=== PATIENT | female | born 1950 | race Caucasian/White ===

== ENCOUNTER 2017-08-30 17:18 | Inpatient (IN) | payer MEDICARE, OTHER ==
--- NOTE | 2017-08-30 17:28 | ED Physician Chart ---
ED Chief Complaint/HPI - Patient Information Date Seen:: 08/30/17 Time Seen:: 17:15 Chief Complaint:: Agitation History of Present Illness:: onset x one day of agitation and aggressive behavior; no report of trauma, H/As , neck pain, C/P, SOB, cough, Abd. Pain, A/N/V/D/C, fever, chills, or urinary s/ s Historian:: EMS Review:: Nurse's Note Reviewed, Old Chart Reviewed, EMS run form Reviewed ED Review of Systems - Review of Systems General/Constitutional: No fever, No chills, No weight loss, No weakness, No diaphoresis, No edema, No loss of appetite Skin: No skin lesions, No rash, No bruising Head: No headache, No light-headedness Eyes: No loss of vision, No pain, No diplopia ENT: No earache, No nasal drainage, No sore throat, No tinnitus Neck: No neck pain, No swelling, No thyromegaly, No stiffness, No mass noted Cardio Vascular: No chest pain, No palpitations, No PND, No orthopnea, No edema Pulmonary: No SOB, No cough, No sputum, No wheezing GI: No nausea, No vomiting, No diarrhea, No pain, No melena, No hematochezia, No constipation, No hematemesis G/U: No dysuria, No frequency, No hematuria, No nacturia 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, No abnormal vaginal bleed, No contraction Musculoskeletal: No bone or joint pain, No back pain, No muscle pain Endocrine: No polyuria, No polydipsia Psychiatric: Prior psych history, Depression, No anxiety, No suicidal ideation, No homicidal ideation, Auditory hallucination, No visual hallucination Hematopoietic: No bruising, No lymphadenopathy Allergic/Immuno: No urticaria, No angioedema Neurological: No syncope, No focal symptoms, No weakness, No paresthesia, No headache, No seizure, No dizziness, No confusion, No vertigo ED Past Medical History - Past Medical History Obtainable: Yes Past Medical History: HTN, Dyslipidemia, PUD/GERD, Arthritis Family History: Diabetes Melitus, HTN Social History: Non Smoker, No Alcohol, No Drug Use, Single, Care Facility Surgical History: None Psychiatricy History: Depression, Schizophrenia, Bipolar Medication: Reviewed ED Physical Exam - Physical Examination General/Constitutional: Awake, Well-developed, well-nourished, Alert, No distress, GCS 15, Non-toxic appearing, Ambulatory Head: Atraumatic Eyes: Lids, conjuctiva normal, PERRL, EOMI Skin: Nl inspection, No rash, No skin lesions, No ecchymosis, Well hydrated, No lymphadenopathy ENMT: External ears, nose nl, TM canals nl, Nasal exam nl, Lips, teeth, gums nl , Oropharynx nl, Tonsils nl Neck: Nontender, Full ROM w/o pain, No JVD, No nuchal rigidity, No bruit, No mass, No stridor Respiratory: Nl effort/Exclusion, Clear to Auscultation, No Wheeze/Rhonchi/Rales Cardio Vascular: RRR, No murmur, gallop, rubs, NL S1 S2, Carotid/Femoral/Distal pulses equal bilaterally GI: No tenderness/rebounding/guarding, No organomegaly, No hernia, Normal BS's, Nondistended, No mass/bruits, No McBurney tenderness : No CVA tenderness Extremities: No tenderness or effusion, Full ROM, normal strength in all extremities, No edema, Normal digits & nails Neuro/Psych: Alert/oriented, DTR's symmetric, Normal sensory exam, Normal motor strength, Judgement/insight normal, Mood normal, Normal gait, No focal deficits Other Neuro/Psych comments:: + Psychomotor Agitation; Mood/Affect: Labile Misc: Normal back, No paraspinal tenderness ED Labs/Radiology/EKG Results - EKG Interpretations EKG Time:: 17:37 Rate & Rhythm: 70; NSR Comments:: non-specific st-t changes ED Septic Shock - . Is Septic Shock (SBP<90, OR Lactate>4 mmol\L) present?: No
[2017-08-30 17:53] LABS: HEMATOCRIT 43.4 % (41.0-60); HEMOGLOBIN 14.4 gm/dL (12-16); MEAN CELL VOLUME 93.9 fl (81-100); MEAN CORPUSCULAR HEMOGLOBIN 31.2 pg (27.0-31.0); MEAN CORPUSCULAR HGB CONC 33.2 pg (28.0-36.0); MEAN PLATELET VOLUME 8.4 fl; PLATELET COUNT 161 Th/cmm (150-400); RED BLOOD COUNT 4.62 Mil/cmm (3.80-5.20); RED CELL DISTRIBUTION WIDTH 13.7 % (11.5-20.0); WHITE BLOOD COUNT 7.7 Th/cmm (4.8-10.8)
[2017-08-30 17:54] LABS: MANUAL DIFF REQUIRED? YES
[2017-08-30 18:11] LABS: ALB/GLOB RATIO 1.4 (1.0-1.8); ALBUMIN 3.9 gm/dL (3.7-5.3); ALKALINE PHOSPHATASE 75 U/L (34-104); ANION GAP 12.9 (7.0-16.0); BILIRUBIN,TOTAL 0.3 mg/dL (0.3-1.0); BUN - UREA NITROGEN 23 mg/dL (7-25); CALCIUM SERUM 9.4 mg/dL (8.6-10.3); CARBON DIOXIDE 26.4 mEq/L (21.0-31.0); CHLORIDE 93 mEq/L (98-107); CHOLESTEROL 231 mg/dL (<200); CREATININE - SERUM 0.9 mg/dL (0.6-1.2); GFR AFRICAN-AMERICAN > 60.0 ml/min (>90); GFR NON AFRICAN-AMERICAN > 60.0 ml/min; GLUCOSE 89 mg/dL (70-105); HDL -HIGH DENSITY LIPOPROTEIN 61 mg/dL (23-92); POTASSIUM SERUM 4.3 mEq/L (3.5-5.1); SGOT 15 U/L (13-39); SGPT/ALT 7 U/L (7-52); SODIUM SERUM 128 mEq/L (136-145); TOTAL PROTEIN,SERUM 6.7 gm/dL (6.0-8.3); TRIGLYCERIDES 174 mg/dL (<150)
[2017-08-30 18:12] LABS: ACETAMINOPHEN < 10.0 ug/mL (10.0-30.0); SALICYLATES (ASPIRIN) < 25.0 mg/L (30.0-100.0)
[2017-08-30 18:15] LABS: ATYPICAL LYMPH 2 %; EOSINOPHIL 2 % (0-5); LYMPHOCYTE 60 % (20-50); MONOCYTE 8 % (2-10); NEUTROPHILS 28 % (40-80); PLATELET ESTIMATE ADEQUATE (NORMAL)
[2017-08-30] MEDS ORDERED: Sodium Chloride 0.9% 1,000 ML IV ONE (19:27)
[2017-08-30] MEDS ORDERED: Magnesium Hydroxide (MOM) 30 mL UDC PO PRN (21:22)
[2017-08-30] MEDS ORDERED: Fleet Enema 135 mL RC PRN (21:22)
[2017-08-30] MEDS: Lactulose 10 Gm/15 mL 30mL UDC PO SCH (21:30)
[2017-08-30 22:29] VITALS: BP 120/66
[2017-08-31] MEDS: Atorvastatin Calcium 10 MG TAB PO SCH (10:35)
--- NOTE | 2017-08-31 13:16 | Psychosocial Evaluation ---
DATE OF SERVICE: 08/30/2017 IDENTIFYING INFORMATION: The patient is a 67-year-old female. CHIEF COMPLAINT: "I have pain in my knees." HISTORY OF PRESENT ILLNESS: The patient was referred for admission because of psychosis, aggressive behavior. The patient herself was not a great historian at the beginning. She has broken her kneecap and has visual problems and that is why she was hospitalized. Later, she admits to feeling depressed that she eats well, but she has poor sleep. She feels paranoid. She reports she lives by herself, which I doubt as she needed help with her ADLs. She was delusional. 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 PAST PSYCHIATRIC HISTORY: The patient was hospitalized before, but she denies prior suicide attempt. She reported that she was diagnosed paranoid schizophrenia. Apparently, she has been on Seroquel and Depakote. I am not sure if she is taking Depakote for a seizure disorder. MEDICAL HISTORY: She has high cholesterol, hypertension, hypothyroidism, constipation. SHE IS ALLERGIC TO PENICILLIN. FAMILY AND SOCIAL HISTORY: The patient was single, never , no children, 10th grade education. 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 The patient reports no history of substance abuse, but she reports her mother was depressed. Later, she reported grandmother and grandfather on mother's side committed suicide. I am not sure that is a real. She denies any history substance abuse. MENTAL STATUS EXAMINATION: The patient is appropriately dressed, not well groomed. She had to be helped with her ADLs. She was alert. She knew this is 08/31/2017. She reports poor sleep, increasing depression. Appetite is okay. She is overweight. She denies any current intent to harm self or anybody. She feels paranoid. She seems to have average intelligence just by information; however, she was not sure the [place] she believe is [place]. Her short term memory, does not know the reason. Her long-term is good for age, date of . Her insight and judgment is impaired. IMPRESSION: AXIS I: Schizoaffective disorder. MEDICAL DIAGNOSES: Deferred to the medical doctor. Her assets, she wants to get help. Negative poor coping. INITIAL TREATMENT PLAN: The patient was started on Depakote and Seroquel. We will do group therapy and milieu therapy. ESTIMATED LENGTH OF STAY: 3-7 days. DISCHARGE CRITERIA: Decrease in depression, psych, paranoia. After discharge, outpatient treatment. JOB# [id number]
[2017-08-31 14:10] LABS: A1C % 5.3 % (4.0-6.0)
--- NOTE | 2017-08-31 14:15 | Internal Medicine Prog Note ---
Internal Medicine Subjective - Subjective Service Date: 08/31/17 ([id number]) Internal Medicine Objective - Results Result Diagrams: 08/30/17 17:47 08/30/17 17:47 Recent Labs: Laboratory Last Values WBC 7.7 Th/cmm (4.8-10.8) 08/30/17 17:47 RBC 4.62 Mil/cmm (3.80-5.20) 08/30/17 17:47 Hgb 14.4 gm/dL (12-16) 08/30/17 17:47 Hct 43.4 % (41.0-60) 08/30/17 17:47 MCV 93.9 fl (81-100) 08/30/17 17:47 MCH 31.2 pg (27.0-31.0) H 08/30/17 17:47 MCHC Differential 33.2 pg (28.0-36.0) 08/30/17 17:47 RDW 13.7 % (11.5-20.0) 08/30/17 17:47 Plt Count 161 Th/cmm (150-400) 08/30/17 17:47 MPV 8.4 fl 08/30/17 17:47 Neutrophils (Manual) 28 % (40-80) L 08/30/17 17:47 Lymphocytes 60 % (20-50) H 08/30/17 17:47 Monocytes 8 % (2-10) 08/30/17 17:47 Eosinophils 2 % (0-5) 08/30/17 17:47 Atypical Lymphocytes 2 % 08/30/17 17:47 Platelet Estimate ADEQUATE (NORMAL) 08/30/17 17:47 Smear Path Review Y 08/30/17 17:47 Sodium 128 mEq/L (136-145) L 08/30/17 17:47 Potassium 4.3 mEq/L (3.5-5.1) 08/30/17 17:47 Chloride 93 mEq/L (98-107) L 08/30/17 17:47 Carbon Dioxide 26.4 mEq/L (21.0-31.0) 08/30/17 17:47 Anion Gap 12.9 (7.0-16.0) 08/30/17 17:47 BUN 23 mg/dL (7-25) 08/30/17 17:47 Creatinine 0.9 mg/dL (0.6-1.2) 08/30/17 17:47 Est GFR ( Amer) > 60.0 ml/min (>90) 08/30/17 17:47 Est GFR (Non-Af Amer) > 60.0 ml/min 08/30/17 17:47 BUN/Creatinine Ratio 25.6 08/30/17 17:47 Glucose 89 mg/dL (70-105) 08/30/17 17:47 Hemoglobin A1c % 5.3 % (4.0-6.0) 08/30/17 17:47 Calcium 9.4 mg/dL (8.6-10.3) 08/30/17 17:47 Total Bilirubin 0.3 mg/dL (0.3-1.0) 08/30/17 17:47 AST 15 U/L (13-39) 08/30/17 17:47 ALT 7 U/L (7-52) 08/30/17 17:47 Alkaline Phosphatase 75 U/L (34-104) 08/30/17 17:47 Total Protein 6.7 gm/dL (6.0-8.3) 08/30/17 17:47 Albumin 3.9 gm/dL (3.7-5.3) 08/30/17 17:47 Globulin 2.8 gm/dL 08/30/17 17:47 Albumin/Globulin Ratio 1.4 (1.0-1.8) 08/30/17 17:47 Triglycerides 174 mg/dL (<150) H 08/30/17 17:47 Cholesterol 231 mg/dL (<200) H 08/30/17 17:47 LDL Cholesterol Direct 170 mg/dL (75-193) 08/30/17 17:47 HDL Cholesterol 61 mg/dL (23-92) 08/30/17 17:47 TSH 3.26 uIU/ml (0.34-5.60) 08/30/17 17:47 Salicylates < 25.0 mg/L (30.0-100.0) L 08/30/17 17:47 Acetaminophen < 10.0 ug/mL (10.0-30.0) L 08/30/17 17:47 Ethyl Alcohol < 10 mg/dL (0-10) 08/30/17 17:47 - Physical Exam Vitals and I&O: Vital Signs Temp 98.3 F 08/31/17 06:16 Pulse 67 08/31/17 06:16 Resp 20 08/31/17 06:16 BP 127/67 08/31/17 10:35 Pulse Ox 98 08/31/17 06:16 Intake & Output 08/30/17 08/31/17 08/31/17 18:59 06:59 18:59 Intake Total 1120 Balance 1120 Intake: Intake, IV Amount 1000 Sodium Chloride 0.9% 1, 1000 000 ml @ Wide Open IV . Q0M ONE Rx#:[id number] Oral 120 Other: # Voids 2 # Bowel Movements 1 Active Medications: Current Medications Acetaminophen (Tylenol) 650 mg PO BID [facility] Stop: 10/30/17 08:59 Last Admin: 08/31/17 10:33 Dose: 650 mg Atorvastatin Calcium (Lipitor) 20 mg PO DAILY [facility] PRN Reason: Protocol Stop: 10/30/17 08:59 Last Admin: 08/31/17 10:35 Dose: 20 mg Bisacodyl (Dulcolax 10 Mg Supp) 10 mg RC Q24H PRN PRN Reason: IF NO BM IN THREE DAYS Stop: 10/29/17 21:21 Docusate Sodium (Colace) 250 mg PO BID [facility] Stop: 10/30/17 08:59 Last Admin: 08/31/17 10:35 Dose: 250 mg Furosemide (Lasix) 20 mg PO BID [facility] Stop: 10/30/17 08:59 Last Admin: 08/31/17 10:35 Dose: 20 mg Lactulose (Cephulac) 30 gm PO HS [facility] Stop: 10/29/17 21:29 Last Admin: 08/30/17 21:30 Dose: 30 gm Levothyroxine Sodium (Synthroid) 0.112 mg PO QDAC [facility] Stop: 10/30/17 07:29 Lorazepam (Ativan) 0.5 mg PO Q4HR PRN; Protocol PRN Reason: Anxiety Stop: 09/29/17 22:16 Magnesium Hydroxide (Milk Of Magnesia) 30 ml PO Q72H PRN PRN Reason: FOR NO BM IN THREE DAYS Stop: 10/29/17 21:21 Megestrol Acetate (Megace) 400 mg PO BID [facility] Stop: 10/30/17 08:59 Quetiapine Fumarate (Seroquel) 300 mg PO BID [facility] PRN Reason: Protocol Stop: 10/30/17 08:59 Sodium Phosphate (Fleet Enema) 118 ml RC PRN PRN PRN Reason: IF BYSACODYL INEFFECTIVE Stop: 10/29/17 21:21 Valproate Sodium (Depakene) 1,000 mg PO BID [facility] Stop: 10/30/17 08:59 Zolpidem Tartrate (Ambien) 5 mg PO HS PRN PRN Reason: Insomnia Stop: 10/29/17 22:16
[2017-08-31] MEDS: Levothyroxine 0.112 Mg Tab PO SCH (14:34)
[2017-08-31] MEDS: Multivitamin w/ Minerals Tab PO SCH (14:34)
--- NOTE | 2017-08-31 17:53 | History & Physical ---
ADMIT DATE: 08/30/2017 DICTATED FOR: Mao Li D.O. CHIEF COMPLAINT: Agitation. HISTORY OF PRESENT ILLNESS: This is a 67-year-old female, who is a half-way resident, was brought here to [facility] for 1-day history of agitation and aggressive behavior towards nursing staff. The patient is now admitted to the Geropsych Unit. PAST MEDICAL HISTORY: Hypertension, dyslipidemia, PUD, GERD, and arthritis. FAMILY HISTORY: Noncontributory. SOCIAL HISTORY: The patient is a half-way resident, requiring 24-hour nursing care. PAST SURGICAL HISTORY: Unknown. MEDICATIONS: Please see medication reconciliation. REVIEW OF SYSTEMS: GENERAL: Denies fever or chills. CARDIOVASCULAR: Denies chest pain. RESPIRATORY: Denies shortness of breath. GASTROINTESTINAL: Denies nausea, vomiting, or abdominal pain. GENITOURINARY: Denies increased frequency or dysuria. NEUROLOGIC: No headaches, seizures, or syncope. All other systems are reviewed and are negative. PHYSICAL EXAMINATION: GENERAL: The patient is well developed, well nourished, no acute distress. VITAL SIGNS: Temperature 98.3, heart rate 67, blood pressure 127/67, respirations 20, and O2 98%. HEENT: Head; normocephalic, atraumatic. NECK: Supple. No mass. LUNGS: Clear bilaterally. HEART: Regular rhythm. ABDOMEN: Soft and nontender. LABORATORY DATA: WBC 7.7, H and H 14.4 and 42.4, and platelet of 161. Sodium 128, potassium 4.2, chloride 93, BUN 23, and creatinine 0.9. ASSESSMENT: Hypertension, dyslipidemia, peptic ulcer disease, gastroesophageal reflux disease, arthritis, schizophrenia, and bipolar. PLAN: We will monitor the patient's blood pressure, keep the patient on a low sodium diet. We will get physical therapy. We will continue to follow this patient. JOB# [id number]
[2017-08-31] MEDS: Lactulose 10 Gm/15 mL 30mL UDC PO SCH (20:21)
[2017-09-01] MEDS: Levothyroxine 0.112 Mg Tab PO SCH (06:34)
[2017-09-01] MEDS: Atorvastatin Calcium 10 MG TAB PO SCH (08:19)
[2017-09-01] MEDS: Multivitamin w/ Minerals Tab PO SCH (08:20)
--- NOTE | 2017-09-01 10:14 | Progress Notes ---
DATE: 09/01/2017 Case was discussed with staff of the patient, reviewed records. The patient continues to be delusional, paranoid, depressed, continues to have poor insight, continues to be unable to make safe plan for self-care, unpredictable, impulsive, needing redirections. Her TSH is within normal range. CBC shows high MCH, the rest within normal range. Chemistry panel shows low sodium ____ within normal range. Lipid profile with high cholesterol and high triglycerides. We will ____ consulting with Dr. Li regarding that and we will continue to work with the patient in group therapy and milieu therapy and adjust medications as needed. JOB# [id number]
--- NOTE | 2017-09-01 13:22 | Internal Medicine Prog Note ---
Internal Medicine Subjective - Subjective Service Date: 09/01/17 Patient seen and examined:: with staff Patient is:: awake Per staff patient has:: no adverse event, tolerating meds Internal Medicine Objective - Results Result Diagrams: 08/30/17 17:47 08/30/17 17:47 Recent Labs: Laboratory Last Values WBC 7.7 Th/cmm (4.8-10.8) 08/30/17 17:47 RBC 4.62 Mil/cmm (3.80-5.20) 08/30/17 17:47 Hgb 14.4 gm/dL (-16) 08/30/17 17:47 Hct 43.4 % (41.0-60) 08/30/17 17:47 MCV 93.9 fl (81-100) 08/30/17 17:47 MCH 31.2 pg (27.0-31.0) H 08/30/17 17:47 MCHC Differential 33.2 pg (28.0-36.0) 08/30/17 17:47 RDW 13.7 % (11.5-20.0) 08/30/17 17:47 Plt Count 161 Th/cmm (150-400) 08/30/17 17:47 MPV 8.4 fl 08/30/17 17:47 Neutrophils (Manual) 28 % (40-80) L 08/30/17 17:47 Lymphocytes 60 % (20-50) H 08/30/17 17:47 Monocytes 8 % (2-10) 08/30/17 17:47 Eosinophils 2 % (0-5) 08/30/17 17:47 Atypical Lymphocytes 2 % 08/30/17 17:47 Platelet Estimate ADEQUATE (NORMAL) 08/30/17 17:47 Smear Path Review Y 08/30/17 17:47 Sodium 128 mEq/L (136-145) L 08/30/17 17:47 Potassium 4.3 mEq/L (3.5-5.1) 08/30/17 17:47 Chloride 93 mEq/L (98-107) L 08/30/17 17:47 Carbon Dioxide 26.4 mEq/L (21.0-31.0) 08/30/17 17:47 Anion Gap 12.9 (7.0-16.0) 08/30/17 17:47 BUN 23 mg/dL (7-25) 08/30/17 17:47 Creatinine 0.9 mg/dL (0.6-1.2) 08/30/17 17:47 Est GFR ( Amer) > 60.0 ml/min (>90) 08/30/17 17:47 Est GFR (Non-Af Amer) > 60.0 ml/min 08/30/17 17:47 BUN/Creatinine Ratio 25.6 08/30/17 17:47 Glucose 89 mg/dL (70-105) 08/30/17 17:47 Hemoglobin A1c % 5.3 % (4.0-6.0) 08/30/17 17:47 Calcium 9.4 mg/dL (8.6-10.3) 08/30/17 17:47 Total Bilirubin 0.3 mg/dL (0.3-1.0) 08/30/17 17:47 AST 15 U/L (13-39) 08/30/17 17:47 ALT 7 U/L (7-52) 08/30/17 17:47 Alkaline Phosphatase 75 U/L (34-104) 08/30/17 17:47 Total Protein 6.7 gm/dL (6.0-8.3) 08/30/17 17:47 Albumin 3.9 gm/dL (3.7-5.3) 08/30/17 17:47 Globulin 2.8 gm/dL 08/30/17 17:47 Albumin/Globulin Ratio 1.4 (1.0-1.8) 08/30/17 17:47 Triglycerides 174 mg/dL (<150) H 08/30/17 17:47 Cholesterol 231 mg/dL (<200) H 08/30/17 17:47 LDL Cholesterol Direct 170 mg/dL (75-193) 08/30/17 17:47 HDL Cholesterol 61 mg/dL (23-92) 08/30/17 17:47 TSH 3.26 uIU/ml (0.34-5.60) 08/30/17 17:47 Salicylates < 25.0 mg/L (30.0-100.0) L 08/30/17 17:47 Acetaminophen < 10.0 ug/mL (10.0-30.0) L 08/30/17 17:47 Ethyl Alcohol < 10 mg/dL (0-10) 08/30/17 17:47 - Physical Exam Vitals and I&O: Vital Signs Temp 98.6 F 09/01/17 06:44 Pulse 83 09/01/17 09:20 Resp 20 09/01/17 06:44 BP 150/81 09/01/17 09:20 Pulse Ox 100 09/01/17 06:44 Intake & Output 08/31/17 09/01/17 09/01/17 18:59 06:59 18:59 Intake Total 240 Output Total 1 Balance 239 Weight (lbs) 225 lb Intake: Oral 240 Output: Stool 1 Other: # Voids 3 # Bowel Movements 0 Active Medications: Current Medications Acetaminophen (Tylenol) 650 mg PO BID [facility] Stop: 10/30/17 08:59 Last Admin: 09/01/17 08:20 Dose: 650 mg Atorvastatin Calcium (Lipitor) 20 mg PO DAILY [facility] PRN Reason: Protocol Stop: 10/30/17 08:59 Last Admin: 09/01/17 08:19 Dose: 20 mg Bisacodyl (Dulcolax 10 Mg Supp) 10 mg RC Q24H PRN PRN Reason: IF NO BM IN THREE DAYS Stop: 10/29/17 21:21 Docusate Sodium (Colace) 250 mg PO BID [facility] Stop: 10/30/17 08:59 Last Admin: 09/01/17 08:20 Dose: 250 mg Furosemide (Lasix) 20 mg PO BID [facility] Stop: 10/30/17 08:59 Last Admin: 09/01/17 08:21 Dose: 20 mg Lactulose (Cephulac) 30 gm PO HS [facility] Stop: 10/29/17 21:29 Last Admin: 08/31/17 20:21 Dose: 30 gm Levothyroxine Sodium (Synthroid) 0.112 mg PO QDAC [facility] Stop: 10/30/17 07:29 Last Admin: 09/01/17 06:34 Dose: 0.112 mg Lorazepam (Ativan) 0.5 mg PO Q4HR PRN; Protocol PRN Reason: Anxiety Stop: 09/29/17 22:16 Magnesium Hydroxide (Milk Of Magnesia) 30 ml PO Q72H PRN PRN Reason: FOR NO BM IN THREE DAYS Stop: 10/29/17 21:21 Megestrol Acetate (Megace) 400 mg PO BID [facility] Stop: 10/30/17 08:59 Last Admin: 09/01/17 08:19 Dose: 400 mg Quetiapine Fumarate (Seroquel) 300 mg PO BID [facility] PRN Reason: Protocol Stop: 10/30/17 08:59 Last Admin: 09/01/17 08:20 Dose: 300 mg Sodium Phosphate (Fleet Enema) 118 ml RC PRN PRN PRN Reason: IF BYSACODYL INEFFECTIVE Stop: 10/29/17 21:21 Valproate Sodium (Depakene) 1,000 mg PO BID [facility] Stop: 10/30/17 08:59 Last Admin: 09/01/17 08:19 Dose: 1,000 mg Zolpidem Tartrate (Ambien) 5 mg PO HS PRN PRN Reason: Insomnia Stop: 10/29/17 22:16 General: alert HEENT: NC/AT, PERRLA Neck: Supple Lungs: CTAB Cardiovascular: RRR, Normal S1, Normal S2, without murmur Abdomen: soft, non-tender, non-distended, positive bowel sound Internal Medicine Assmt/Plan - Assessment Assessment: htn dyslipidemia pud gerd arthritis schizophrenia bipolar - Plan Plan: monitor bp low fat diet will continue to follow patient continue current plan of care
[2017-09-01] MEDS: Lactulose 10 Gm/15 mL 30mL UDC PO SCH (21:17)
[2017-09-02] MEDS: Levothyroxine 0.112 Mg Tab PO SCH (06:33)
[2017-09-02] MEDS: Atorvastatin Calcium 10 MG TAB PO SCH (10:03)
[2017-09-02] MEDS: Multivitamin w/ Minerals Tab PO SCH (10:04)
--- NOTE | 2017-09-02 12:56 | Internal Medicine Prog Note ---
Internal Medicine Subjective - Subjective Service Date: 09/02/17 Patient is:: awake Per staff patient has:: no adverse event, tolerating meds Internal Medicine Objective - Results Result Diagrams: 08/30/17 17:47 08/30/17 17:47 Recent Labs: Laboratory Last Values WBC 7.7 Th/cmm (4.8-10.8) 08/30/17 17:47 RBC 4.62 Mil/cmm (3.80-5.20) 08/30/17 17:47 Hgb 14.4 gm/dL (-16) 08/30/17 17:47 Hct 43.4 % (41.0-60) 08/30/17 17:47 MCV 93.9 fl (81-100) 08/30/17 17:47 MCH 31.2 pg (27.0-31.0) H 08/30/17 17:47 MCHC Differential 33.2 pg (28.0-36.0) 08/30/17 17:47 RDW 13.7 % (11.5-20.0) 08/30/17 17:47 Plt Count 161 Th/cmm (150-400) 08/30/17 17:47 MPV 8.4 fl 08/30/17 17:47 Neutrophils (Manual) 28 % (40-80) L 08/30/17 17:47 Lymphocytes 60 % (20-50) H 08/30/17 17:47 Monocytes 8 % (2-10) 08/30/17 17:47 Eosinophils 2 % (0-5) 08/30/17 17:47 Atypical Lymphocytes 2 % 08/30/17 17:47 Platelet Estimate ADEQUATE (NORMAL) 08/30/17 17:47 Smear Path Review Y 08/30/17 17:47 Sodium 128 mEq/L (136-145) L 08/30/17 17:47 Potassium 4.3 mEq/L (3.5-5.1) 08/30/17 17:47 Chloride 93 mEq/L (98-107) L 08/30/17 17:47 Carbon Dioxide 26.4 mEq/L (21.0-31.0) 08/30/17 17:47 Anion Gap 12.9 (7.0-16.0) 08/30/17 17:47 BUN 23 mg/dL (7-25) 08/30/17 17:47 Creatinine 0.9 mg/dL (0.6-1.2) 08/30/17 17:47 Est GFR ( Amer) > 60.0 ml/min (>90) 08/30/17 17:47 Est GFR (Non-Af Amer) > 60.0 ml/min 08/30/17 17:47 BUN/Creatinine Ratio 25.6 08/30/17 17:47 Glucose 89 mg/dL (70-105) 08/30/17 17:47 Hemoglobin A1c % 5.3 % (4.0-6.0) 08/30/17 17:47 Calcium 9.4 mg/dL (8.6-10.3) 08/30/17 17:47 Total Bilirubin 0.3 mg/dL (0.3-1.0) 08/30/17 17:47 AST 15 U/L (13-39) 08/30/17 17:47 ALT 7 U/L (7-52) 08/30/17 17:47 Alkaline Phosphatase 75 U/L (34-104) 08/30/17 17:47 Total Protein 6.7 gm/dL (6.0-8.3) 08/30/17 17:47 Albumin 3.9 gm/dL (3.7-5.3) 08/30/17 17:47 Globulin 2.8 gm/dL 08/30/17 17:47 Albumin/Globulin Ratio 1.4 (1.0-1.8) 08/30/17 17:47 Triglycerides 174 mg/dL (<150) H 08/30/17 17:47 Cholesterol 231 mg/dL (<200) H 08/30/17 17:47 LDL Cholesterol Direct 170 mg/dL (75-193) 08/30/17 17:47 HDL Cholesterol 61 mg/dL (23-92) 08/30/17 17:47 TSH 3.26 uIU/ml (0.34-5.60) 08/30/17 17:47 Salicylates < 25.0 mg/L (30.0-100.0) L 08/30/17 17:47 Acetaminophen < 10.0 ug/mL (10.0-30.0) L 08/30/17 17:47 Ethyl Alcohol < 10 mg/dL (0-10) 08/30/17 17:47 RPR NONREACTIVE (NONREACTIVE) 08/30/17 17:47 - Physical Exam Vitals and I&O: Vital Signs Temp 97.2 F 09/02/17 07:02 Pulse 60 09/02/17 07:02 Resp 20 09/02/17 07:02 BP 134/82 09/02/17 07:02 Pulse Ox 99 09/02/17 07:02 Intake & Output 09/01/17 09/02/17 09/02/17 18:59 06:59 18:59 Intake Total 120 Balance 120 Intake: Oral 120 Other: # Voids 3 Active Medications: Current Medications Acetaminophen (Tylenol) 650 mg PO BID [facility] Stop: 10/30/17 08:59 Last Admin: 09/02/17 10:03 Dose: Not Given Atorvastatin Calcium (Lipitor) 20 mg PO DAILY [facility] PRN Reason: Protocol Stop: 10/30/17 08:59 Last Admin: 09/02/17 10:03 Dose: Not Given Bisacodyl (Dulcolax 10 Mg Supp) 10 mg RC Q24H PRN PRN Reason: IF NO BM IN THREE DAYS Stop: 10/29/17 21:21 Docusate Sodium (Colace) 250 mg PO BID [facility] Stop: 10/30/17 08:59 Last Admin: 09/02/17 10:03 Dose: Not Given Furosemide (Lasix) 20 mg PO BID [facility] Stop: 10/30/17 08:59 Last Admin: 09/02/17 09:36 Dose: Not Given Lactulose (Cephulac) 30 gm PO HS [facility] Stop: 10/29/17 21:29 Last Admin: 09/01/17 21:17 Dose: 30 gm Levothyroxine Sodium (Synthroid) 0.112 mg PO QDAC [facility] Stop: 10/30/17 07:29 Last Admin: 09/02/17 06:33 Dose: 0.112 mg Lorazepam (Ativan) 0.5 mg PO Q4HR PRN; Protocol PRN Reason: Anxiety Stop: 09/29/17 22:16 Magnesium Hydroxide (Milk Of Magnesia) 30 ml PO Q72H PRN PRN Reason: FOR NO BM IN THREE DAYS Stop: 10/29/17 21:21 Megestrol Acetate (Megace) 400 mg PO BID [facility] Stop: 10/30/17 08:59 Last Admin: 09/02/17 10:03 Dose: Not Given Quetiapine Fumarate 300 mg/ (Quetiapine Fumarate 25 mg) 325 mg PO BID [facility] Stop: 11/01/17 16:59 Sodium Phosphate (Fleet Enema) 118 ml RC PRN PRN PRN Reason: IF BYSACODYL INEFFECTIVE Stop: 10/29/17 21:21 Valproate Sodium (Depakene) 1,000 mg PO BID [facility] Stop: 10/30/17 08:59 Last Admin: 09/02/17 10:04 Dose: Not Given Zolpidem Tartrate (Ambien) 5 mg PO HS PRN PRN Reason: Insomnia Stop: 10/29/17 22:16 General: alert HEENT: NC/AT, PERRLA Neck: Supple Lungs: CTAB Cardiovascular: RRR, Normal S1, Normal S2, without murmur Abdomen: soft, non-tender, non-distended, positive bowel sound Internal Medicine Assmt/Plan - Assessment Assessment: htn dyslipidemia pud gerd arthritis schizophrenia bipolar - Plan Plan: monitor bp low fat diet will continue to follow patient continue current plan of care
[2017-09-02] MEDS: QUEtiapine Fumarate 300 MG, QUEtiapine Fumarate 25 MG PO SCH (17:25)
--- NOTE | 2017-09-02 19:26 | Progress Notes ---
DATE: 09/02/2017 The case was discussed with staff of the patient, reviewed records. The patient continues to be delusional. Continues to have poor insight, continues to be unable to make safe plan for self-care, unpredictable, impulsive. She is bedridden and she needs total care. She reports that she takes Depakote because of her mental illness and not for seizures. She denies having a seizure and so far, no side effects with the medication, no sedation, no nausea and also from the symptoms. I will be increasing Seroquel to 325 mg twice a day and so far, no side effects, no sedation noted. No extrapyramidal symptoms. Lab work showed MRSA is negative. TSH within normal range. CBC with high MCH, the rest within normal range. Chemistry panel with low sodium and low chloride. Already instructed the staff to consult with Dr. Li regarding his abnormal lab work and we will continue to work with the patient in group therapy, milieu therapy, adjust medication. JOB# [id number]
[2017-09-02] MEDS: Lactulose 10 Gm/15 mL 30mL UDC PO SCH (20:16)
[2017-09-03] MEDS: Levothyroxine 0.112 Mg Tab PO SCH (06:33)
[2017-09-03] MEDS: Multivitamin w/ Minerals Tab PO SCH (09:11)
[2017-09-03] MEDS: Atorvastatin Calcium 10 MG TAB PO SCH (09:11)
[2017-09-03] MEDS: QUEtiapine Fumarate 300 MG, QUEtiapine Fumarate 25 MG PO SCH ×2 (09:47→16:53)
--- NOTE | 2017-09-03 13:14 | Internal Medicine Prog Note ---
Internal Medicine Subjective - Subjective Service Date: 09/03/17 Patient is:: awake Per staff patient has:: no adverse event, tolerating meds Internal Medicine Objective - Results Result Diagrams: 08/30/17 17:47 08/30/17 17:47 Recent Labs: Laboratory Last Values WBC 7.7 Th/cmm (4.8-10.8) 08/30/17 17:47 RBC 4.62 Mil/cmm (3.80-5.20) 08/30/17 17:47 Hgb 14.4 gm/dL (-16) 08/30/17 17:47 Hct 43.4 % (41.0-60) 08/30/17 17:47 MCV 93.9 fl (81-100) 08/30/17 17:47 MCH 31.2 pg (27.0-31.0) H 08/30/17 17:47 MCHC Differential 33.2 pg (28.0-36.0) 08/30/17 17:47 RDW 13.7 % (11.5-20.0) 08/30/17 17:47 Plt Count 161 Th/cmm (150-400) 08/30/17 17:47 MPV 8.4 fl 08/30/17 17:47 Neutrophils (Manual) 28 % (40-80) L 08/30/17 17:47 Lymphocytes 60 % (20-50) H 08/30/17 17:47 Monocytes 8 % (2-10) 08/30/17 17:47 Eosinophils 2 % (0-5) 08/30/17 17:47 Atypical Lymphocytes 2 % 08/30/17 17:47 Platelet Estimate ADEQUATE (NORMAL) 08/30/17 17:47 Smear Path Review Y 08/30/17 17:47 Sodium 128 mEq/L (136-145) L 08/30/17 17:47 Potassium 4.3 mEq/L (3.5-5.1) 08/30/17 17:47 Chloride 93 mEq/L (98-107) L 08/30/17 17:47 Carbon Dioxide 26.4 mEq/L (21.0-31.0) 08/30/17 17:47 Anion Gap 12.9 (7.0-16.0) 08/30/17 17:47 BUN 23 mg/dL (7-25) 08/30/17 17:47 Creatinine 0.9 mg/dL (0.6-1.2) 08/30/17 17:47 Est GFR ( Amer) > 60.0 ml/min (>90) 08/30/17 17:47 Est GFR (Non-Af Amer) > 60.0 ml/min 08/30/17 17:47 BUN/Creatinine Ratio 25.6 08/30/17 17:47 Glucose 89 mg/dL (70-105) 08/30/17 17:47 Hemoglobin A1c % 5.3 % (4.0-6.0) 08/30/17 17:47 Calcium 9.4 mg/dL (8.6-10.3) 08/30/17 17:47 Total Bilirubin 0.3 mg/dL (0.3-1.0) 08/30/17 17:47 AST 15 U/L (13-39) 08/30/17 17:47 ALT 7 U/L (7-52) 08/30/17 17:47 Alkaline Phosphatase 75 U/L (34-104) 08/30/17 17:47 Total Protein 6.7 gm/dL (6.0-8.3) 08/30/17 17:47 Albumin 3.9 gm/dL (3.7-5.3) 08/30/17 17:47 Globulin 2.8 gm/dL 08/30/17 17:47 Albumin/Globulin Ratio 1.4 (1.0-1.8) 08/30/17 17:47 Triglycerides 174 mg/dL (<150) H 08/30/17 17:47 Cholesterol 231 mg/dL (<200) H 08/30/17 17:47 LDL Cholesterol Direct 170 mg/dL (75-193) 08/30/17 17:47 HDL Cholesterol 61 mg/dL (23-92) 08/30/17 17:47 TSH 3.26 uIU/ml (0.34-5.60) 08/30/17 17:47 Salicylates < 25.0 mg/L (30.0-100.0) L 08/30/17 17:47 Acetaminophen < 10.0 ug/mL (10.0-30.0) L 08/30/17 17:47 Ethyl Alcohol < 10 mg/dL (0-10) 08/30/17 17:47 RPR NONREACTIVE (NONREACTIVE) 08/30/17 17:47 - Physical Exam Vitals and I&O: Vital Signs Temp 97.2 F 09/03/17 06:45 Pulse 64 09/03/17 10:13 Resp 18 09/03/17 06:45 BP 130/54 09/03/17 10:13 Pulse Ox 96 09/03/17 06:45 Intake & Output 09/02/17 09/03/17 09/03/17 18:59 06:59 18:59 Intake Total 1120 120 Balance 1120 120 Intake: Oral 1120 120 Other: # Voids 2 3 # Bowel Movements 1 Active Medications: Current Medications Acetaminophen (Tylenol) 650 mg PO BID [facility] Stop: 10/30/17 08:59 Last Admin: 09/03/17 09:11 Dose: 650 mg Atorvastatin Calcium (Lipitor) 20 mg PO DAILY DIRK PRN Reason: Protocol Stop: 10/30/17 08:59 Last Admin: 09/03/17 09:11 Dose: 20 mg Bisacodyl (Dulcolax 10 Mg Supp) 10 mg RC Q24H PRN PRN Reason: IF NO BM IN THREE DAYS Stop: 10/29/17 21:21 Docusate Sodium (Colace) 250 mg PO BID [facility] Stop: 10/30/17 08:59 Last Admin: 09/03/17 09:11 Dose: 250 mg Furosemide (Lasix) 20 mg PO BID [facility] Stop: 10/30/17 08:59 Last Admin: 09/03/17 09:12 Dose: 20 mg Lactulose (Cephulac) 30 gm PO HS [facility] Stop: 10/29/17 21:29 Last Admin: 09/02/17 20:16 Dose: 30 gm Levothyroxine Sodium (Synthroid) 0.112 mg PO QDAC [facility] Stop: 10/30/17 07:29 Last Admin: 09/03/17 06:33 Dose: 0.112 mg Lorazepam (Ativan) 0.5 mg PO Q4HR PRN; Protocol PRN Reason: Anxiety Stop: 09/29/17 22:16 Magnesium Hydroxide (Milk Of Magnesia) 30 ml PO Q72H PRN PRN Reason: FOR NO BM IN THREE DAYS Stop: 10/29/17 21:21 Megestrol Acetate (Megace) 400 mg PO BID [facility] Stop: 10/30/17 08:59 Last Admin: 09/03/17 09:47 Dose: 400 mg Quetiapine Fumarate 300 mg/ (Quetiapine Fumarate 25 mg) 325 mg PO BID [facility] Stop: 11/01/17 16:59 Last Admin: 09/03/17 09:47 Dose: 325 mg Sodium Phosphate (Fleet Enema) 118 ml RC PRN PRN PRN Reason: IF BYSACODYL INEFFECTIVE Stop: 10/29/17 21:21 Valproate Sodium (Depakene) 1,000 mg PO BID [facility] Stop: 10/30/17 08:59 Last Admin: 09/03/17 09:14 Dose: 1,000 mg Zolpidem Tartrate (Ambien) 5 mg PO HS PRN PRN Reason: Insomnia Stop: 10/29/17 22:16 General: alert HEENT: NC/AT, PERRLA Neck: Supple Lungs: CTAB Cardiovascular: RRR, Normal S1, Normal S2, without murmur Abdomen: soft, non-tender, non-distended, positive bowel sound Internal Medicine Assmt/Plan - Assessment Assessment: htn dyslipidemia pud gerd arthritis schizophrenia bipolar - Plan Plan: monitor bp low fat diet will continue to follow patient continue current plan of care
--- NOTE | 2017-09-03 20:07 | Progress Notes ---
DATE: 09/03/2017 Case was discussed with staff of the patient, reviewed records. The patient continues to stay in bed need total care. Continues to have poor insight, unpredictable, impulsive, needing redirection. Sleeping well, eating well. No side effects with the medication, no sedation, no nausea, no extrapyramidal symptoms. She tolerated the increase in Seroquel to 325 mg a day with no side effects and we will continue to work with the patient in group therapy, milieu therapy, adjust medication as needed. JOB# [id number]
[2017-09-03] MEDS: Lactulose 10 Gm/15 mL 30mL UDC PO SCH (20:49)
[2017-09-04] MEDS: Levothyroxine 0.112 Mg Tab PO SCH (06:49)
[2017-09-04] MEDS: Atorvastatin Calcium 10 MG TAB PO SCH (09:15)
[2017-09-04] MEDS: QUEtiapine Fumarate 300 MG, QUEtiapine Fumarate 25 MG PO SCH ×2 (09:17→16:40)
[2017-09-04] MEDS: Multivitamin w/ Minerals Tab PO SCH (09:30)
--- NOTE | 2017-09-04 12:08 | Progress Notes ---
DATE: 09/04/2017 Case was discussed with staff of the patient and records. The patient states mostly she is still unpredictable, impulsive, delusional, unable to make safe plan for self-care, unpredictable, impulsive, needing redirection. Tolerated the increase in Seroquel with no side effects, no sedation, no nausea, no extrapyramidal symptoms and her lab work was reviewed. We will continue the accepting therapy, adjust medications. JOB# [id number]
--- NOTE | 2017-09-04 14:30 | Internal Medicine Prog Note ---
Internal Medicine Subjective - Subjective Patient seen and examined:: with staff, chart reviewed Patient is:: awake, verbal, interactive Per staff patient has:: no adverse event, eating well, noncompliant, tolerating meds Internal Medicine Objective - Results Result Diagrams: 08/30/17 17:47 08/30/17 17:47 Recent Labs: Laboratory Last Values WBC 7.7 Th/cmm (4.8-10.8) 08/30/17 17:47 RBC 4.62 Mil/cmm (3.80-5.20) 08/30/17 17:47 Hgb 14.4 gm/dL (-16) 08/30/17 17:47 Hct 43.4 % (41.0-60) 08/30/17 17:47 MCV 93.9 fl (81-100) 08/30/17 17:47 MCH 31.2 pg (27.0-31.0) H 08/30/17 17:47 MCHC Differential 33.2 pg (28.0-36.0) 08/30/17 17:47 RDW 13.7 % (11.5-20.0) 08/30/17 17:47 Plt Count 161 Th/cmm (150-400) 08/30/17 17:47 MPV 8.4 fl 08/30/17 17:47 Neutrophils (Manual) 28 % (40-80) L 08/30/17 17:47 Lymphocytes 60 % (20-50) H 08/30/17 17:47 Monocytes 8 % (2-10) 08/30/17 17:47 Eosinophils 2 % (0-5) 08/30/17 17:47 Atypical Lymphocytes 2 % 08/30/17 17:47 Platelet Estimate ADEQUATE (NORMAL) 08/30/17 17:47 Smear Path Review Y 08/30/17 17:47 Sodium 128 mEq/L (136-145) L 08/30/17 17:47 Potassium 4.3 mEq/L (3.5-5.1) 08/30/17 17:47 Chloride 93 mEq/L (98-107) L 08/30/17 17:47 Carbon Dioxide 26.4 mEq/L (21.0-31.0) 08/30/17 17:47 Anion Gap 12.9 (7.0-16.0) 08/30/17 17:47 BUN 23 mg/dL (7-25) 08/30/17 17:47 Creatinine 0.9 mg/dL (0.6-1.2) 08/30/17 17:47 Est GFR ( Amer) > 60.0 ml/min (>90) 08/30/17 17:47 Est GFR (Non-Af Amer) > 60.0 ml/min 08/30/17 17:47 BUN/Creatinine Ratio 25.6 08/30/17 17:47 Glucose 89 mg/dL (70-105) 08/30/17 17:47 Hemoglobin A1c % 5.3 % (4.0-6.0) 08/30/17 17:47 Calcium 9.4 mg/dL (8.6-10.3) 08/30/17 17:47 Total Bilirubin 0.3 mg/dL (0.3-1.0) 08/30/17 17:47 AST 15 U/L (13-39) 08/30/17 17:47 ALT 7 U/L (7-52) 08/30/17 17:47 Alkaline Phosphatase 75 U/L (34-104) 08/30/17 17:47 Total Protein 6.7 gm/dL (6.0-8.3) 08/30/17 17:47 Albumin 3.9 gm/dL (3.7-5.3) 08/30/17 17:47 Globulin 2.8 gm/dL 08/30/17 17:47 Albumin/Globulin Ratio 1.4 (1.0-1.8) 08/30/17 17:47 Triglycerides 174 mg/dL (<150) H 08/30/17 17:47 Cholesterol 231 mg/dL (<200) H 08/30/17 17:47 LDL Cholesterol Direct 170 mg/dL (75-193) 08/30/17 17:47 HDL Cholesterol 61 mg/dL (23-92) 08/30/17 17:47 TSH 3.26 uIU/ml (0.34-5.60) 08/30/17 17:47 Salicylates < 25.0 mg/L (30.0-100.0) L 08/30/17 17:47 Acetaminophen < 10.0 ug/mL (10.0-30.0) L 08/30/17 17:47 Ethyl Alcohol < 10 mg/dL (0-10) 08/30/17 17:47 RPR NONREACTIVE (NONREACTIVE) 08/30/17 17:47 - Physical Exam Vitals and I&O: Vital Signs Temp 98.2 F 09/03/17 14:00 Pulse 79 09/04/17 10:16 Resp 20 09/03/17 14:00 BP 132/89 09/04/17 10:16 Pulse Ox 98 09/03/17 14:00 Intake & Output 09/03/17 09/04/17 09/04/17 18:59 06:59 18:59 Intake Total 800 Balance 800 Intake: Oral 800 Other: # Voids 3 # Bowel Movements 0 Active Medications: Current Medications Acetaminophen (Tylenol) 650 mg PO BID [facility] Stop: 10/30/17 08:59 Last Admin: 09/04/17 09:15 Dose: 650 mg Atorvastatin Calcium (Lipitor) 20 mg PO DAILY [facility] PRN Reason: Protocol Stop: 10/30/17 08:59 Last Admin: 09/04/17 09:15 Dose: 20 mg Bisacodyl (Dulcolax 10 Mg Supp) 10 mg RC Q24H PRN PRN Reason: IF NO BM IN THREE DAYS Stop: 10/29/17 21:21 Docusate Sodium (Colace) 250 mg PO BID [facility] Stop: 10/30/17 08:59 Last Admin: 09/04/17 09:17 Dose: 250 mg Furosemide (Lasix) 20 mg PO BID [facility] Stop: 10/30/17 08:59 Last Admin: 09/04/17 09:16 Dose: 20 mg Lactulose (Cephulac) 30 gm PO HS [facility] Stop: 10/29/17 21:29 Last Admin: 09/03/17 20:49 Dose: 30 gm Levothyroxine Sodium (Synthroid) 0.112 mg PO QDAC [facility] Stop: 10/30/17 07:29 Last Admin: 09/04/17 06:49 Dose: 0.112 mg Lorazepam (Ativan) 0.5 mg PO Q4HR PRN; Protocol PRN Reason: Anxiety Stop: 09/29/17 22:16 Magnesium Hydroxide (Milk Of Magnesia) 30 ml PO Q72H PRN PRN Reason: FOR NO BM IN THREE DAYS Stop: 10/29/17 21:21 Megestrol Acetate (Megace) 400 mg PO BID [facility] Stop: 10/30/17 08:59 Last Admin: 09/04/17 09:15 Dose: 400 mg Quetiapine Fumarate 300 mg/ (Quetiapine Fumarate 25 mg) 325 mg PO BID [facility] Stop: 11/01/17 16:59 Last Admin: 09/04/17 09:17 Dose: 325 mg Sodium Phosphate (Fleet Enema) 118 ml RC PRN PRN PRN Reason: IF BYSACODYL INEFFECTIVE Stop: 10/29/17 21:21 Valproate Sodium (Depakene) 1,000 mg PO BID [facility] Stop: 10/30/17 08:59 Last Admin: 09/04/17 09:15 Dose: 1,000 mg Zolpidem Tartrate (Ambien) 5 mg PO HS PRN PRN Reason: Insomnia Stop: 10/29/17 22:16 General: alert HEENT: NC/AT, PERRLA Neck: Supple Lungs: CTAB Cardiovascular: RRR, Normal S1, Normal S2, without murmur Abdomen: soft, non-tender, non-distended, positive bowel sound Internal Medicine Assmt/Plan - Assessment Assessment: - Assessment Assessment: htn dyslipidemia pud gerd arthritis schizophrenia bipolar - Plan Plan: monitor bp low fat diet will continue to follow patient continue current plan of care - Plan Plan: meds and orders noted eusebio vallejo Nutritional Asmnt/Malnutr-PDOC - Dietary Evaluation Malnutrition Findings (Please click <Entered> for more info): Nutritional Asmnt/Malnutrition Start: 09/04/17 10: 54 Text: Status: Complete Freq: Document 09/04/17 10:54 KHUSHBU (Rec: 09/04/17 10:59 KHUSHBU POTTS [email or web address]) Nutritional Asmnt/Malnutrition Patient General Information Diagnosis Psychosis Pertinent Medical Hx/Surgical Hx HTN, dyslipidemia, PUD, GERD Subjective Information PT asleep at time of visit Current Diet Order/ Nutrition Support low sodium Pertinent Medications lipitor, bisacodyl, colace, lasix, lactulose, synthroid, MOM, megace, fleet enema Pertinent Labs 08/30: Na 128, K 4.3, Cl 93, CO2 26.4, BUN 23, Cr 0.9, Ca 9 .4, glucose 89 Nutritional Hx/Data Height 1.73 m Height (Calculated Centimeters) 172.7 Current Weight (lbs) 102.058 kg Weight (Calculated Kilograms) 102.1 Weight (Calculated Grams) 068694.3 Body Mass Index (BMI) 34.2 Recent Weight Change No Weight Status Obese GI Symptoms GI Symptoms None Last BM 09/02 x 1 Difficult in: None Cultural/Ethnic/Confucianist Belief unknown Usual diet at home unknown Skin Integrity/Comment: vinh score 17 Estimated Nutritional Goals BEE in Kcals: Adj wt of IBW Calories/Kcals/Kg 25-30kcals/kg Kcals Calculated 1825-2190kcals/day Protein: Adj wt of IBW Protein g/k-1.2g/kg Protein Calculated 7388g/day Fluid: ml 1825-2190ml/day (1ml/kcal) Nutritional Problem 1. Problem Problem No nutrition diagnosis at this time Intervention/Recommendation Comments Recommend continuing Mechanical soft diet Expected Outcomes/Goals Expected Outcomes/Goals PO intake >75%
[2017-09-04] MEDS: Lactulose 10 Gm/15 mL 30mL UDC PO SCH (20:32)
[2017-09-05] MEDS: Levothyroxine 0.112 Mg Tab PO SCH (06:37)
[2017-09-05] MEDS: Multivitamin w/ Minerals Tab PO SCH (08:12)
[2017-09-05] MEDS: QUEtiapine Fumarate 300 MG, QUEtiapine Fumarate 25 MG PO SCH ×2 (08:12→16:47)
[2017-09-05] MEDS: Atorvastatin Calcium 10 MG TAB PO SCH (08:14)
--- NOTE | 2017-09-05 13:05 | Progress Notes ---
DATE: 09/05/2017 Case was discussed with staff of the patient, reviewed records. The patient continues to have poor insight, unpredictable, impulsive, needing redirection. Continues to stay in bed, needing total care. She is compliant with the medication with no side effects, no sedation, no nausea, no extrapyramidal symptoms. I will increase the Seroquel dose and will continue to work with the patient in group therapy, milieu therapy, adjust medication as needed. JOB# [id number]
--- NOTE | 2017-09-05 15:16 | Internal Medicine Prog Note ---
Internal Medicine Subjective - Subjective Patient seen and examined:: with staff, chart reviewed Patient is:: awake, verbal, interactive Per staff patient has:: no adverse event, eating well, noncompliant, tolerating meds Internal Medicine Objective - Results Result Diagrams: 08/30/17 17:47 08/30/17 17:47 Recent Labs: Laboratory Last Values WBC 7.7 Th/cmm (4.8-10.8) 08/30/17 17:47 RBC 4.62 Mil/cmm (3.80-5.20) 08/30/17 17:47 Hgb 14.4 gm/dL (-16) 08/30/17 17:47 Hct 43.4 % (41.0-60) 08/30/17 17:47 MCV 93.9 fl (81-100) 08/30/17 17:47 MCH 31.2 pg (27.0-31.0) H 08/30/17 17:47 MCHC Differential 33.2 pg (28.0-36.0) 08/30/17 17:47 RDW 13.7 % (11.5-20.0) 08/30/17 17:47 Plt Count 161 Th/cmm (150-400) 08/30/17 17:47 MPV 8.4 fl 08/30/17 17:47 Neutrophils (Manual) 28 % (40-80) L 08/30/17 17:47 Lymphocytes 60 % (20-50) H 08/30/17 17:47 Monocytes 8 % (2-10) 08/30/17 17:47 Eosinophils 2 % (0-5) 08/30/17 17:47 Atypical Lymphocytes 2 % 08/30/17 17:47 Platelet Estimate ADEQUATE (NORMAL) 08/30/17 17:47 Smear Path Review Y 08/30/17 17:47 Sodium 128 mEq/L (136-145) L 08/30/17 17:47 Potassium 4.3 mEq/L (3.5-5.1) 08/30/17 17:47 Chloride 93 mEq/L (98-107) L 08/30/17 17:47 Carbon Dioxide 26.4 mEq/L (21.0-31.0) 08/30/17 17:47 Anion Gap 12.9 (7.0-16.0) 08/30/17 17:47 BUN 23 mg/dL (7-25) 08/30/17 17:47 Creatinine 0.9 mg/dL (0.6-1.2) 08/30/17 17:47 Est GFR ( Amer) > 60.0 ml/min (>90) 08/30/17 17:47 Est GFR (Non-Af Amer) > 60.0 ml/min 08/30/17 17:47 BUN/Creatinine Ratio 25.6 08/30/17 17:47 Glucose 89 mg/dL (70-105) 08/30/17 17:47 Hemoglobin A1c % 5.3 % (4.0-6.0) 08/30/17 17:47 Calcium 9.4 mg/dL (8.6-10.3) 08/30/17 17:47 Total Bilirubin 0.3 mg/dL (0.3-1.0) 08/30/17 17:47 AST 15 U/L (13-39) 08/30/17 17:47 ALT 7 U/L (7-52) 08/30/17 17:47 Alkaline Phosphatase 75 U/L (34-104) 08/30/17 17:47 Total Protein 6.7 gm/dL (6.0-8.3) 08/30/17 17:47 Albumin 3.9 gm/dL (3.7-5.3) 08/30/17 17:47 Globulin 2.8 gm/dL 08/30/17 17:47 Albumin/Globulin Ratio 1.4 (1.0-1.8) 08/30/17 17:47 Triglycerides 174 mg/dL (<150) H 08/30/17 17:47 Cholesterol 231 mg/dL (<200) H 08/30/17 17:47 LDL Cholesterol Direct 170 mg/dL (75-193) 08/30/17 17:47 HDL Cholesterol 61 mg/dL (23-92) 08/30/17 17:47 TSH 3.26 uIU/ml (0.34-5.60) 08/30/17 17:47 Salicylates < 25.0 mg/L (30.0-100.0) L 08/30/17 17:47 Acetaminophen < 10.0 ug/mL (10.0-30.0) L 08/30/17 17:47 Ethyl Alcohol < 10 mg/dL (0-10) 08/30/17 17:47 RPR NONREACTIVE (NONREACTIVE) 08/30/17 17:47 - Physical Exam Vitals and I&O: Vital Signs Temp 98.2 F 09/04/17 20:41 Pulse 89 09/05/17 09:12 Resp 18 09/04/17 20:41 BP 136/63 09/05/17 09:12 Pulse Ox 96 09/04/17 20:41 Intake & Output 09/04/17 09/05/17 09/05/17 18:59 06:59 18:59 Intake Total 1200 241 Output Total 3 Balance 1200 238 Intake: Oral 1200 241 Output: Stool 3 Other: # Voids 1 # Bowel Movements 1 Active Medications: Current Medications Acetaminophen (Tylenol) 650 mg PO BID [facility] Stop: 10/30/17 08:59 Last Admin: 09/05/17 08:12 Dose: Not Given Atorvastatin Calcium (Lipitor) 20 mg PO DAILY [facility] PRN Reason: Protocol Stop: 10/30/17 08:59 Last Admin: 09/05/17 08:14 Dose: 20 mg Bisacodyl (Dulcolax 10 Mg Supp) 10 mg RC Q24H PRN PRN Reason: IF NO BM IN THREE DAYS Stop: 10/29/17 21:21 Docusate Sodium (Colace) 250 mg PO BID [facility] Stop: 10/30/17 08:59 Last Admin: 09/05/17 08:15 Dose: 250 mg Furosemide (Lasix) 20 mg PO BID [facility] Stop: 10/30/17 08:59 Last Admin: 09/05/17 08:14 Dose: 20 mg Lactulose (Cephulac) 30 gm PO HS [facility] Stop: 10/29/17 21:29 Last Admin: 09/04/17 20:32 Dose: 30 gm Levothyroxine Sodium (Synthroid) 0.112 mg PO QDAC [facility] Stop: 10/30/17 07:29 Last Admin: 09/05/17 06:37 Dose: 0.112 mg Lorazepam (Ativan) 0.5 mg PO Q4HR PRN; Protocol PRN Reason: Anxiety Stop: 09/29/17 22:16 Magnesium Hydroxide (Milk Of Magnesia) 30 ml PO Q72H PRN PRN Reason: FOR NO BM IN THREE DAYS Stop: 10/29/17 21:21 Megestrol Acetate (Megace) 400 mg PO BID [facility] Stop: 10/30/17 08:59 Last Admin: 09/05/17 08:16 Dose: 400 mg Quetiapine Fumarate 300 mg/ (Quetiapine Fumarate 25 mg) 325 mg PO BID [facility] Stop: 11/01/17 16:59 Last Admin: 09/05/17 08:12 Dose: 325 mg Sodium Phosphate (Fleet Enema) 118 ml RC PRN PRN PRN Reason: IF BYSACODYL INEFFECTIVE Stop: 10/29/17 21:21 Valproate Sodium (Depakene) 1,000 mg PO BID [facility] Stop: 10/30/17 08:59 Last Admin: 09/05/17 08:16 Dose: 1,000 mg Zolpidem Tartrate (Ambien) 5 mg PO HS PRN PRN Reason: Insomnia Stop: 10/29/17 22:16 General: alert HEENT: NC/AT, PERRLA Neck: Supple Lungs: CTAB Cardiovascular: RRR, Normal S1, Normal S2, without murmur Abdomen: soft, non-tender, non-distended, positive bowel sound Internal Medicine Assmt/Plan - Assessment Assessment: - Assessment Assessment: htn dyslipidemia pud gerd arthritis schizophrenia bipolar - Plan Plan: monitor bp low fat diet will continue to follow patient continue current plan of care - Plan Plan: meds and orders noted eusebio vallejo Nutritional Asmnt/Malnutr-PDOC - Dietary Evaluation Malnutrition Findings (Please click <Entered> for more info): Nutritional Asmnt/Malnutrition Start: 09/04/17 10: 54 Text: Status: Complete Freq: Document 09/04/17 10:54 KHUSHBU (Rec: 09/04/17 10:59 KHUSHBU POTTS [email or web address]) Nutritional Asmnt/Malnutrition Patient General Information Diagnosis Psychosis Pertinent Medical Hx/Surgical Hx HTN, dyslipidemia, PUD, GERD Subjective Information PT asleep at time of visit Current Diet Order/ Nutrition Support low sodium Pertinent Medications lipitor, bisacodyl, colace, lasix, lactulose, synthroid, MOM, megace, fleet enema Pertinent Labs 08/30: Na 128, K 4.3, Cl 93, CO2 26.4, BUN 23, Cr 0.9, Ca 9 .4, glucose 89 Nutritional Hx/Data Height 1.73 m Height (Calculated Centimeters) 172.7 Current Weight (lbs) 102.058 kg Weight (Calculated Kilograms) 102.1 Weight (Calculated Grams) 307165.3 Body Mass Index (BMI) 34.2 Recent Weight Change No Weight Status Obese GI Symptoms GI Symptoms None Last BM 09/02 x 1 Difficult in: None Cultural/Ethnic/Jain Belief unknown Usual diet at home unknown Skin Integrity/Comment: vinh score 17 Estimated Nutritional Goals BEE in Kcals: Adj wt of IBW Calories/Kcals/Kg 25-30kcals/kg Kcals Calculated 1825-2190kcals/day Protein: Adj wt of IBW Protein g/k-1.2g/kg Protein Calculated 7388g/day Fluid: ml 1825-2190ml/day (1ml/kcal) Nutritional Problem 1. Problem Problem No nutrition diagnosis at this time Intervention/Recommendation Comments Recommend continuing Mechanical soft diet Expected Outcomes/Goals Expected Outcomes/Goals PO intake >75%
[2017-09-05] MEDS: Lactulose 10 Gm/15 mL 30mL UDC PO SCH (20:39)
[2017-09-06] MEDS: Levothyroxine 0.112 Mg Tab PO SCH (06:45)
[2017-09-06] MEDS: QUEtiapine Fumarate 300 MG, QUEtiapine Fumarate 25 MG PO SCH (08:45)
[2017-09-06] MEDS: Multivitamin w/ Minerals Tab PO SCH (08:47)
[2017-09-06] MEDS: Atorvastatin Calcium 10 MG TAB PO SCH (08:47)
--- NOTE | 2017-09-06 14:23 | Internal Medicine Prog Note ---
Internal Medicine Subjective - Subjective Service Date: 09/06/17 Patient is:: awake, verbal, interactive Per staff patient has:: no adverse event, eating well, noncompliant, tolerating meds Internal Medicine Objective - Results Result Diagrams: 08/30/17 17:47 08/30/17 17:47 Recent Labs: Laboratory Last Values WBC 7.7 Th/cmm (4.8-10.8) 08/30/17 17:47 RBC 4.62 Mil/cmm (3.80-5.20) 08/30/17 17:47 Hgb 14.4 gm/dL (-16) 08/30/17 17:47 Hct 43.4 % (41.0-60) 08/30/17 17:47 MCV 93.9 fl (81-100) 08/30/17 17:47 MCH 31.2 pg (27.0-31.0) H 08/30/17 17:47 MCHC Differential 33.2 pg (28.0-36.0) 08/30/17 17:47 RDW 13.7 % (11.5-20.0) 08/30/17 17:47 Plt Count 161 Th/cmm (150-400) 08/30/17 17:47 MPV 8.4 fl 08/30/17 17:47 Neutrophils (Manual) 28 % (40-80) L 08/30/17 17:47 Lymphocytes 60 % (20-50) H 08/30/17 17:47 Monocytes 8 % (2-10) 08/30/17 17:47 Eosinophils 2 % (0-5) 08/30/17 17:47 Atypical Lymphocytes 2 % 08/30/17 17:47 Platelet Estimate ADEQUATE (NORMAL) 08/30/17 17:47 Smear Path Review Y 08/30/17 17:47 Sodium 128 mEq/L (136-145) L 08/30/17 17:47 Potassium 4.3 mEq/L (3.5-5.1) 08/30/17 17:47 Chloride 93 mEq/L (98-107) L 08/30/17 17:47 Carbon Dioxide 26.4 mEq/L (21.0-31.0) 08/30/17 17:47 Anion Gap 12.9 (7.0-16.0) 08/30/17 17:47 BUN 23 mg/dL (7-25) 08/30/17 17:47 Creatinine 0.9 mg/dL (0.6-1.2) 08/30/17 17:47 Est GFR ( Amer) > 60.0 ml/min (>90) 08/30/17 17:47 Est GFR (Non-Af Amer) > 60.0 ml/min 08/30/17 17:47 BUN/Creatinine Ratio 25.6 08/30/17 17:47 Glucose 89 mg/dL (70-105) 08/30/17 17:47 Hemoglobin A1c % 5.3 % (4.0-6.0) 08/30/17 17:47 Calcium 9.4 mg/dL (8.6-10.3) 08/30/17 17:47 Total Bilirubin 0.3 mg/dL (0.3-1.0) 08/30/17 17:47 AST 15 U/L (13-39) 08/30/17 17:47 ALT 7 U/L (7-52) 08/30/17 17:47 Alkaline Phosphatase 75 U/L (34-104) 08/30/17 17:47 Total Protein 6.7 gm/dL (6.0-8.3) 08/30/17 17:47 Albumin 3.9 gm/dL (3.7-5.3) 08/30/17 17:47 Globulin 2.8 gm/dL 08/30/17 17:47 Albumin/Globulin Ratio 1.4 (1.0-1.8) 08/30/17 17:47 Triglycerides 174 mg/dL (<150) H 08/30/17 17:47 Cholesterol 231 mg/dL (<200) H 08/30/17 17:47 LDL Cholesterol Direct 170 mg/dL (75-193) 08/30/17 17:47 HDL Cholesterol 61 mg/dL (23-92) 08/30/17 17:47 TSH 3.26 uIU/ml (0.34-5.60) 08/30/17 17:47 Salicylates < 25.0 mg/L (30.0-100.0) L 08/30/17 17:47 Acetaminophen < 10.0 ug/mL (10.0-30.0) L 08/30/17 17:47 Valproic Acid 94.3 ug/mL (50.0-100.0) 09/06/17 12:00 Ethyl Alcohol < 10 mg/dL (0-10) 08/30/17 17:47 RPR NONREACTIVE (NONREACTIVE) 08/30/17 17:47 - Physical Exam Vitals and I&O: Vital Signs Temp 98.3 F 09/06/17 06:21 Pulse 76 09/06/17 09:56 Resp 20 09/06/17 06:21 BP 127/69 09/06/17 09:56 Pulse Ox 97 09/06/17 06:21 Intake & Output 09/05/17 09/06/17 09/06/17 18:59 06:59 18:59 Intake Total 950 360 Balance 950 360 Intake: Oral 950 360 Other: # Voids 4 2 # Bowel Movements 2 0 Active Medications: Current Medications Acetaminophen (Tylenol) 650 mg PO BID [facility] Stop: 10/30/17 08:59 Last Admin: 09/06/17 08:49 Dose: Not Given Atorvastatin Calcium (Lipitor) 20 mg PO DAILY [facility] PRN Reason: Protocol Stop: 10/30/17 08:59 Last Admin: 09/06/17 08:47 Dose: 20 mg Bisacodyl (Dulcolax 10 Mg Supp) 10 mg RC Q24H PRN PRN Reason: IF NO BM IN THREE DAYS Stop: 10/29/17 21:21 Docusate Sodium (Colace) 250 mg PO BID [facility] Stop: 10/30/17 08:59 Last Admin: 09/06/17 08:48 Dose: 250 mg Furosemide (Lasix) 20 mg PO BID [facility] Stop: 10/30/17 08:59 Last Admin: 09/06/17 08:56 Dose: 20 mg Lactulose (Cephulac) 30 gm PO HS [facility] Stop: 10/29/17 21:29 Last Admin: 09/05/17 20:39 Dose: 30 gm Levothyroxine Sodium (Synthroid) 0.112 mg PO QDAC [facility] Stop: 10/30/17 07:29 Last Admin: 09/06/17 06:45 Dose: 0.112 mg Lorazepam (Ativan) 0.5 mg PO Q4HR PRN; Protocol PRN Reason: Anxiety Stop: 09/29/17 22:16 Magnesium Hydroxide (Milk Of Magnesia) 30 ml PO Q72H PRN PRN Reason: FOR NO BM IN THREE DAYS Stop: 10/29/17 21:21 Megestrol Acetate (Megace) 400 mg PO BID [facility] Stop: 10/30/17 08:59 Last Admin: 09/06/17 08:47 Dose: 400 mg Quetiapine Fumarate 300 mg/ (Quetiapine Fumarate 50 mg) 350 mg PO BID [facility] Stop: 11/05/17 16:59 Sodium Phosphate (Fleet Enema) 118 ml RC PRN PRN PRN Reason: IF BYSACODYL INEFFECTIVE Stop: 10/29/17 21:21 Valproate Sodium (Depakene) 1,000 mg PO BID [facility] Stop: 10/30/17 08:59 Last Admin: 09/06/17 08:46 Dose: 1,000 mg Zolpidem Tartrate (Ambien) 5 mg PO HS PRN PRN Reason: Insomnia Stop: 10/29/17 22:16 General: alert HEENT: NC/AT, PERRLA Neck: Supple Lungs: CTAB Cardiovascular: RRR, Normal S1, Normal S2, without murmur Abdomen: soft, non-tender, non-distended, positive bowel sound Internal Medicine Assmt/Plan - Assessment Assessment: htn dyslipidemia pud gerd arthritis schizophrenia bipolar - Plan Plan: monitor bp low fat diet will continue to follow patient continue current plan of care Nutritional Asmnt/Malnutr-PDOC - Dietary Evaluation Malnutrition Findings (Please click <Entered> for more info): Nutritional Asmnt/Malnutrition Start: 09/04/17 10: 54 Text: Status: Complete Freq: Document 09/04/17 10:54 KHUSHBU (Rec: 09/04/17 10:59 KHUSHBU POTTS- [email or web address]) Nutritional Asmnt/Malnutrition Patient General Information Diagnosis Psychosis Pertinent Medical Hx/Surgical Hx HTN, dyslipidemia, PUD, GERD Subjective Information PT asleep at time of visit Current Diet Order/ Nutrition Support low sodium Pertinent Medications lipitor, bisacodyl, colace, lasix, lactulose, synthroid, MOM, megace, fleet enema Pertinent Labs 08/30: Na 128, K 4.3, Cl 93, CO2 26.4, BUN 23, Cr 0.9, Ca 9 .4, glucose 89 Nutritional Hx/Data Height 5 ft 8 in Height (Calculated Centimeters) 172.7 Current Weight (lbs) 225 lb Weight (Calculated Kilograms) 102.1 Weight (Calculated Grams) 444975.3 Body Mass Index (BMI) 34.2 Recent Weight Change No Weight Status Obese GI Symptoms GI Symptoms None Last BM 09/02 x 1 Difficult in: None Cultural/Ethnic/Hoahaoism Belief unknown Usual diet at home unknown Skin Integrity/Comment: vinh score 17 Estimated Nutritional Goals BEE in Kcals: Adj wt of IBW Calories/Kcals/Kg 25-30kcals/kg Kcals Calculated 1825-2190kcals/day Protein: Adj wt of IBW Protein g/k-1.2g/kg Protein Calculated 7388g/day Fluid: ml 1825-2190ml/day (1ml/kcal) Nutritional Problem 1. Problem Problem No nutrition diagnosis at this time Intervention/Recommendation Comments Recommend continuing Mechanical soft diet Expected Outcomes/Goals Expected Outcomes/Goals PO intake >75%
[2017-09-06] MEDS: Lactulose 10 Gm/15 mL 30mL UDC PO SCH (20:54)
--- NOTE | 2017-09-07 00:16 | Progress Notes ---
DATE: 09/06/2017 Case was discussed with staff of the patient, reviewed records. The patient was out of the bed yesterday. She is helped by the staff to the dining room. The patient looks disheveled, internally preoccupied, but in general she has been responding well to redirection. She is sleeping better, eating better. No side effects from the medication or sedation, no nausea, no extrapyramidal symptoms and I will be increasing her Seroquel dose to 350 twice a day and so far no side effects, no sedation, no nausea, no extrapyramidal symptoms. We will be checking her Depakote level. I will continue patient in group therapy, milieu therapy, adjust medication as needed. JOB# [id number]
[2017-09-07] MEDS: Levothyroxine 0.112 Mg Tab PO SCH (06:34)
[2017-09-07] MEDS: Multivitamin w/ Minerals Tab PO SCH (09:22)
[2017-09-07] MEDS: Atorvastatin Calcium 10 MG TAB PO SCH (09:22)
--- NOTE | 2017-09-07 12:11 | Progress Notes ---
DATE: 09/07/2017 Case was discussed with staff of the patient. The patient continues to be delusional, internally preoccupied, stays to herself, needing total care. She was ____ to spend time in the dining room with other people, ____ very well socializing. Sleeping well and eating well. No side effects with the medication, no sedation, no nausea, no extrapyramidal symptoms. I am checking her Depakote level. We will continue the patient in group therapy and milieu therapy and adjust medication as needed. JOB# [id number]
--- NOTE | 2017-09-07 12:37 | Internal Medicine Prog Note ---
Internal Medicine Subjective - Subjective Service Date: 09/07/17 Patient is:: awake, verbal, interactive Per staff patient has:: no adverse event, eating well, noncompliant, tolerating meds Internal Medicine Objective - Results Result Diagrams: 08/30/17 17:47 08/30/17 17:47 Recent Labs: Laboratory Last Values WBC 7.7 Th/cmm (4.8-10.8) 08/30/17 17:47 RBC 4.62 Mil/cmm (3.80-5.20) 08/30/17 17:47 Hgb 14.4 gm/dL (-16) 08/30/17 17:47 Hct 43.4 % (41.0-60) 08/30/17 17:47 MCV 93.9 fl (81-100) 08/30/17 17:47 MCH 31.2 pg (27.0-31.0) H 08/30/17 17:47 MCHC Differential 33.2 pg (28.0-36.0) 08/30/17 17:47 RDW 13.7 % (11.5-20.0) 08/30/17 17:47 Plt Count 161 Th/cmm (150-400) 08/30/17 17:47 MPV 8.4 fl 08/30/17 17:47 Neutrophils (Manual) 28 % (40-80) L 08/30/17 17:47 Lymphocytes 60 % (20-50) H 08/30/17 17:47 Monocytes 8 % (2-10) 08/30/17 17:47 Eosinophils 2 % (0-5) 08/30/17 17:47 Atypical Lymphocytes 2 % 08/30/17 17:47 Platelet Estimate ADEQUATE (NORMAL) 08/30/17 17:47 Smear Path Review Y 08/30/17 17:47 Sodium 128 mEq/L (136-145) L 08/30/17 17:47 Potassium 4.3 mEq/L (3.5-5.1) 08/30/17 17:47 Chloride 93 mEq/L (98-107) L 08/30/17 17:47 Carbon Dioxide 26.4 mEq/L (21.0-31.0) 08/30/17 17:47 Anion Gap 12.9 (7.0-16.0) 08/30/17 17:47 BUN 23 mg/dL (7-25) 08/30/17 17:47 Creatinine 0.9 mg/dL (0.6-1.2) 08/30/17 17:47 Est GFR ( Amer) > 60.0 ml/min (>90) 08/30/17 17:47 Est GFR (Non-Af Amer) > 60.0 ml/min 08/30/17 17:47 BUN/Creatinine Ratio 25.6 08/30/17 17:47 Glucose 89 mg/dL (70-105) 08/30/17 17:47 Hemoglobin A1c % 5.3 % (4.0-6.0) 08/30/17 17:47 Calcium 9.4 mg/dL (8.6-10.3) 08/30/17 17:47 Total Bilirubin 0.3 mg/dL (0.3-1.0) 08/30/17 17:47 AST 15 U/L (13-39) 08/30/17 17:47 ALT 7 U/L (7-52) 08/30/17 17:47 Alkaline Phosphatase 75 U/L (34-104) 08/30/17 17:47 Total Protein 6.7 gm/dL (6.0-8.3) 08/30/17 17:47 Albumin 3.9 gm/dL (3.7-5.3) 08/30/17 17:47 Globulin 2.8 gm/dL 08/30/17 17:47 Albumin/Globulin Ratio 1.4 (1.0-1.8) 08/30/17 17:47 Triglycerides 174 mg/dL (<150) H 08/30/17 17:47 Cholesterol 231 mg/dL (<200) H 08/30/17 17:47 LDL Cholesterol Direct 170 mg/dL (75-193) 08/30/17 17:47 HDL Cholesterol 61 mg/dL (23-92) 08/30/17 17:47 TSH 3.26 uIU/ml (0.34-5.60) 08/30/17 17:47 Salicylates < 25.0 mg/L (30.0-100.0) L 08/30/17 17:47 Acetaminophen < 10.0 ug/mL (10.0-30.0) L 08/30/17 17:47 Valproic Acid 94.3 ug/mL (50.0-100.0) 09/06/17 12:00 Ethyl Alcohol < 10 mg/dL (0-10) 08/30/17 17:47 RPR NONREACTIVE (NONREACTIVE) 08/30/17 17:47 - Physical Exam Vitals and I&O: Vital Signs Temp 98.6 F 09/07/17 06:44 Pulse 76 09/07/17 10:23 Resp 19 09/07/17 06:44 BP 113/56 09/07/17 10:23 Pulse Ox 98 09/07/17 06:44 Intake & Output 09/06/17 09/07/17 09/07/17 18:59 06:59 18:59 Intake Total 1300 Balance 1300 Weight (lbs) 225 lb Intake: Oral 1300 Other: # Voids 4 3 # Bowel Movements 3 1 Active Medications: Current Medications Acetaminophen (Tylenol) 650 mg PO BID [facility] Stop: 10/30/17 08:59 Last Admin: 09/07/17 09:24 Dose: 650 mg Atorvastatin Calcium (Lipitor) 20 mg PO DAILY [facility] PRN Reason: Protocol Stop: 10/30/17 08:59 Last Admin: 09/07/17 09:22 Dose: 20 mg Bisacodyl (Dulcolax 10 Mg Supp) 10 mg RC Q24H PRN PRN Reason: IF NO BM IN THREE DAYS Stop: 10/29/17 21:21 Docusate Sodium (Colace) 250 mg PO BID [facility] Stop: 10/30/17 08:59 Last Admin: 09/07/17 09:22 Dose: 250 mg Furosemide (Lasix) 20 mg PO BID [facility] Stop: 10/30/17 08:59 Last Admin: 09/07/17 09:22 Dose: 20 mg Lactulose (Cephulac) 30 gm PO HS [facility] Stop: 10/29/17 21:29 Last Admin: 09/06/17 20:54 Dose: 30 gm Levothyroxine Sodium (Synthroid) 0.112 mg PO QDAC [facility] Stop: 10/30/17 07:29 Last Admin: 09/07/17 06:34 Dose: 0.112 mg Lorazepam (Ativan) 0.5 mg PO Q4HR PRN; Protocol PRN Reason: Anxiety Stop: 09/29/17 22:16 Magnesium Hydroxide (Milk Of Magnesia) 30 ml PO Q72H PRN PRN Reason: FOR NO BM IN THREE DAYS Stop: 10/29/17 21:21 Megestrol Acetate (Megace) 400 mg PO BID [facility] Stop: 10/30/17 08:59 Last Admin: 09/07/17 09:22 Dose: 400 mg Quetiapine Fumarate 300 mg/ (Quetiapine Fumarate 50 mg) 350 mg PO BID [facility] Stop: 11/05/17 16:59 Last Admin: 09/07/17 09:22 Dose: 350 mg Sodium Phosphate (Fleet Enema) 118 ml RC PRN PRN PRN Reason: IF BYSACODYL INEFFECTIVE Stop: 10/29/17 21:21 Valproate Sodium (Depakene) 1,000 mg PO BID [facility] Stop: 10/30/17 08:59 Last Admin: 09/07/17 09:21 Dose: 1,000 mg Zolpidem Tartrate (Ambien) 5 mg PO HS PRN PRN Reason: Insomnia Stop: 10/29/17 22:16 General: alert HEENT: NC/AT, PERRLA Neck: Supple Lungs: CTAB Cardiovascular: RRR, Normal S1, Normal S2, without murmur Abdomen: soft, non-tender, non-distended, positive bowel sound Internal Medicine Assmt/Plan - Assessment Assessment: htn dyslipidemia pud gerd arthritis schizophrenia bipolar - Plan Plan: monitor bp low fat diet will continue to follow patient continue current plan of care Nutritional Asmnt/Malnutr-PDOC - Dietary Evaluation Malnutrition Findings (Please click <Entered> for more info): Nutritional Asmnt/Malnutrition Start: 09/04/17 10: 54 Text: Status: Complete Freq: Document 09/04/17 10:54 KHUSHBU (Rec: 09/04/17 10:59 KHUSHBU DELROY [email or web address]) Nutritional Asmnt/Malnutrition Patient General Information Diagnosis Psychosis Pertinent Medical Hx/Surgical Hx HTN, dyslipidemia, PUD, GERD Subjective Information PT asleep at time of visit Current Diet Order/ Nutrition Support low sodium Pertinent Medications lipitor, bisacodyl, colace, lasix, lactulose, synthroid, MOM, megace, fleet enema Pertinent Labs 08/30: Na 128, K 4.3, Cl 93, CO2 26.4, BUN 23, Cr 0.9, Ca 9 .4, glucose 89 Nutritional Hx/Data Height 5 ft 8 in Height (Calculated Centimeters) 172.7 Current Weight (lbs) 225 lb Weight (Calculated Kilograms) 102.1 Weight (Calculated Grams) 208180.3 Body Mass Index (BMI) 34.2 Recent Weight Change No Weight Status Obese GI Symptoms GI Symptoms None Last BM 09/02 x 1 Difficult in: None Cultural/Ethnic/Jainism Belief unknown Usual diet at home unknown Skin Integrity/Comment: vinh score 17 Estimated Nutritional Goals BEE in Kcals: Adj wt of IBW Calories/Kcals/Kg 25-30kcals/kg Kcals Calculated 1825-2190kcals/day Protein: Adj wt of IBW Protein g/k-1.2g/kg Protein Calculated 7388g/day Fluid: ml 1825-2190ml/day (1ml/kcal) Nutritional Problem 1. Problem Problem No nutrition diagnosis at this time Intervention/Recommendation Comments Recommend continuing Mechanical soft diet Expected Outcomes/Goals Expected Outcomes/Goals PO intake >75%
[2017-09-07] MEDS: Lactulose 10 Gm/15 mL 30mL UDC PO SCH (20:35)
[2017-09-08] MEDS: Levothyroxine 0.112 Mg Tab PO SCH (06:50)
[2017-09-08] MEDS: Multivitamin w/ Minerals Tab PO SCH (09:10)
[2017-09-08] MEDS: Atorvastatin Calcium 10 MG TAB PO SCH (09:10)
--- NOTE | 2017-09-08 12:01 | Progress Notes ---
DATE: 09/08/2017 Case was discussed with staff and the patient, reviewed records. The patient stays in bed mostly. Her affect is constricted. Her thoughts are concrete. Her speech is coherent. She is due to be responding to internal stimuli. She is sleeping better, eating better, continues, she needs total care and she has very poor insight about the whole situation. I discussed the care with the medical doctor who is taking care of her medically. She continues to have some agitation, irritability, gets agitated easily. I did increase her Seroquel dose yesterday with no side effects, no sedation nausea, no extrapyramidal symptoms. She is on Depakote 1000 mg twice a day and the Depakote level came back at 94.3, which is within acceptable therapeutic range. MRSA is negative and TSH within normal range. CBC with high MCH within normal range. Chemistry panel low sodium, low chloride. The rest within normal range. She has high cholesterol, high triglyceride level for which Dr. Levine will be taking care of that and we will continue to occupational therapy, milieu therapy, adjust the medication as needed. JOB# [id number]
--- NOTE | 2017-09-08 12:50 | Internal Medicine Prog Note ---
Internal Medicine Subjective - Subjective Service Date: 09/08/17 Patient is:: awake, verbal, interactive Per staff patient has:: no adverse event, eating well, noncompliant, tolerating meds Internal Medicine Objective - Results Result Diagrams: 08/30/17 17:47 08/30/17 17:47 Recent Labs: Laboratory Last Values WBC 7.7 Th/cmm (4.8-10.8) 08/30/17 17:47 RBC 4.62 Mil/cmm (3.80-5.20) 08/30/17 17:47 Hgb 14.4 gm/dL (-16) 08/30/17 17:47 Hct 43.4 % (41.0-60) 08/30/17 17:47 MCV 93.9 fl (81-100) 08/30/17 17:47 MCH 31.2 pg (27.0-31.0) H 08/30/17 17:47 MCHC Differential 33.2 pg (28.0-36.0) 08/30/17 17:47 RDW 13.7 % (11.5-20.0) 08/30/17 17:47 Plt Count 161 Th/cmm (150-400) 08/30/17 17:47 MPV 8.4 fl 08/30/17 17:47 Neutrophils (Manual) 28 % (40-80) L 08/30/17 17:47 Lymphocytes 60 % (20-50) H 08/30/17 17:47 Monocytes 8 % (2-10) 08/30/17 17:47 Eosinophils 2 % (0-5) 08/30/17 17:47 Atypical Lymphocytes 2 % 08/30/17 17:47 Platelet Estimate ADEQUATE (NORMAL) 08/30/17 17:47 Smear Path Review Y 08/30/17 17:47 Sodium 128 mEq/L (136-145) L 08/30/17 17:47 Potassium 4.3 mEq/L (3.5-5.1) 08/30/17 17:47 Chloride 93 mEq/L (98-107) L 08/30/17 17:47 Carbon Dioxide 26.4 mEq/L (21.0-31.0) 08/30/17 17:47 Anion Gap 12.9 (7.0-16.0) 08/30/17 17:47 BUN 23 mg/dL (7-25) 08/30/17 17:47 Creatinine 0.9 mg/dL (0.6-1.2) 08/30/17 17:47 Est GFR ( Amer) > 60.0 ml/min (>90) 08/30/17 17:47 Est GFR (Non-Af Amer) > 60.0 ml/min 08/30/17 17:47 BUN/Creatinine Ratio 25.6 08/30/17 17:47 Glucose 89 mg/dL (70-105) 08/30/17 17:47 Hemoglobin A1c % 5.3 % (4.0-6.0) 08/30/17 17:47 Calcium 9.4 mg/dL (8.6-10.3) 08/30/17 17:47 Total Bilirubin 0.3 mg/dL (0.3-1.0) 08/30/17 17:47 AST 15 U/L (13-39) 08/30/17 17:47 ALT 7 U/L (7-52) 08/30/17 17:47 Alkaline Phosphatase 75 U/L (34-104) 08/30/17 17:47 Total Protein 6.7 gm/dL (6.0-8.3) 08/30/17 17:47 Albumin 3.9 gm/dL (3.7-5.3) 08/30/17 17:47 Globulin 2.8 gm/dL 08/30/17 17:47 Albumin/Globulin Ratio 1.4 (1.0-1.8) 08/30/17 17:47 Triglycerides 174 mg/dL (<150) H 08/30/17 17:47 Cholesterol 231 mg/dL (<200) H 08/30/17 17:47 LDL Cholesterol Direct 170 mg/dL (75-193) 08/30/17 17:47 HDL Cholesterol 61 mg/dL (23-92) 08/30/17 17:47 TSH 3.26 uIU/ml (0.34-5.60) 08/30/17 17:47 Salicylates < 25.0 mg/L (30.0-100.0) L 08/30/17 17:47 Acetaminophen < 10.0 ug/mL (10.0-30.0) L 08/30/17 17:47 Valproic Acid 94.3 ug/mL (50.0-100.0) 09/06/17 12:00 Ethyl Alcohol < 10 mg/dL (0-10) 08/30/17 17:47 RPR NONREACTIVE (NONREACTIVE) 08/30/17 17:47 - Physical Exam Vitals and I&O: Vital Signs Temp 97.6 F 09/08/17 06:42 Pulse 58 09/08/17 10:09 Resp 18 09/08/17 06:42 BP 128/55 09/08/17 10:09 Pulse Ox 97 09/08/17 06:42 Intake & Output 09/07/17 09/08/17 09/08/17 18:59 06:59 18:59 Intake Total 120 Balance 120 Intake: Oral 120 Other: # Voids 3 Active Medications: Current Medications Acetaminophen (Tylenol) 650 mg PO BID [facility] Stop: 10/30/17 08:59 Last Admin: 09/08/17 09:09 Dose: 650 mg Atorvastatin Calcium (Lipitor) 20 mg PO DAILY [facility] PRN Reason: Protocol Stop: 10/30/17 08:59 Last Admin: 09/08/17 09:10 Dose: 20 mg Bisacodyl (Dulcolax 10 Mg Supp) 10 mg RC Q24H PRN PRN Reason: IF NO BM IN THREE DAYS Stop: 10/29/17 21:21 Docusate Sodium (Colace) 250 mg PO BID [facility] Stop: 10/30/17 08:59 Last Admin: 09/08/17 09:08 Dose: 250 mg Furosemide (Lasix) 20 mg PO BID [facility] Stop: 10/30/17 08:59 Last Admin: 09/08/17 09:09 Dose: 20 mg Lactulose (Cephulac) 30 gm PO HS [facility] Stop: 10/29/17 21:29 Last Admin: 09/07/17 20:35 Dose: Not Given Levothyroxine Sodium (Synthroid) 0.112 mg PO QDAC [facility] Stop: 10/30/17 07:29 Last Admin: 09/08/17 06:50 Dose: 0.112 mg Lorazepam (Ativan) 0.5 mg PO Q4HR PRN; Protocol PRN Reason: Anxiety Stop: 09/29/17 22:16 Magnesium Hydroxide (Milk Of Magnesia) 30 ml PO Q72H PRN PRN Reason: FOR NO BM IN THREE DAYS Stop: 10/29/17 21:21 Megestrol Acetate (Megace) 400 mg PO BID [facility] Stop: 10/30/17 08:59 Last Admin: 09/08/17 09:10 Dose: 400 mg Quetiapine Fumarate 300 mg/ (Quetiapine Fumarate 50 mg) 350 mg PO BID [facility] Stop: 11/05/17 16:59 Last Admin: 09/08/17 09:08 Dose: 350 mg Sodium Phosphate (Fleet Enema) 118 ml RC PRN PRN PRN Reason: IF BYSACODYL INEFFECTIVE Stop: 10/29/17 21:21 Valproate Sodium (Depakene) 1,000 mg PO BID [facility] Stop: 10/30/17 08:59 Last Admin: 09/08/17 10:00 Dose: 1,000 mg Zolpidem Tartrate (Ambien) 5 mg PO HS PRN PRN Reason: Insomnia Stop: 10/29/17 22:16 General: alert HEENT: NC/AT, PERRLA Neck: Supple Lungs: CTAB Cardiovascular: RRR, Normal S1, Normal S2, without murmur Abdomen: soft, non-tender, non-distended, positive bowel sound Internal Medicine Assmt/Plan - Assessment Assessment: htn dyslipidemia pud gerd arthritis schizophrenia bipolar - Plan Plan: monitor bp low fat diet will continue to follow patient continue current plan of care Nutritional Asmnt/Malnutr-PDOC - Dietary Evaluation Malnutrition Findings (Please click <Entered> for more info): Nutritional Asmnt/Malnutrition Start: 09/04/17 10: 54 Text: Status: Complete Freq: Document 09/04/17 10:54 KHUSHBU (Rec: 09/04/17 10:59 KHUSHBU POTTS [email or web address]) Nutritional Asmnt/Malnutrition Patient General Information Diagnosis Psychosis Pertinent Medical Hx/Surgical Hx HTN, dyslipidemia, PUD, GERD Subjective Information PT asleep at time of visit Current Diet Order/ Nutrition Support low sodium Pertinent Medications lipitor, bisacodyl, colace, lasix, lactulose, synthroid, MOM, megace, fleet enema Pertinent Labs 08/30: Na 128, K 4.3, Cl 93, CO2 26.4, BUN 23, Cr 0.9, Ca 9 .4, glucose 89 Nutritional Hx/Data Height 5 ft 8 in Height (Calculated Centimeters) 172.7 Current Weight (lbs) 225 lb Weight (Calculated Kilograms) 102.1 Weight (Calculated Grams) 245332.3 Body Mass Index (BMI) 34.2 Recent Weight Change No Weight Status Obese GI Symptoms GI Symptoms None Last BM 09/02 x 1 Difficult in: None Cultural/Ethnic/Mosque Belief unknown Usual diet at home unknown Skin Integrity/Comment: vinh score 17 Estimated Nutritional Goals BEE in Kcals: Adj wt of IBW Calories/Kcals/Kg 25-30kcals/kg Kcals Calculated 1825-2190kcals/day Protein: Adj wt of IBW Protein g/k-1.2g/kg Protein Calculated 7388g/day Fluid: ml 1825-2190ml/day (1ml/kcal) Nutritional Problem 1. Problem Problem No nutrition diagnosis at this time Intervention/Recommendation Comments Recommend continuing Mechanical soft diet Expected Outcomes/Goals Expected Outcomes/Goals PO intake >75%
[2017-09-08] MEDS: Lactulose 10 Gm/15 mL 30mL UDC PO SCH (20:54)
[2017-09-09] MEDS: Levothyroxine 0.112 Mg Tab PO SCH (06:41)
[2017-09-09] MEDS: Atorvastatin Calcium 10 MG TAB PO SCH (09:12)
[2017-09-09] MEDS: Multivitamin w/ Minerals Tab PO SCH (09:13)
--- NOTE | 2017-09-09 14:37 | Progress Notes ---
DATE: 09/09/2017 Case was discussed with staff of the patient, reviewed records. The patient continues to be delusional. Continues to be unpredictable and impulsive, needing redirection. Continues to need total self-care. Continues to have poor insight. Unable to make safe plan for self-care. She is compliant with the medication with no side effects, no sedation, no nausea and no extrapyramidal symptoms and she tolerated the increase in Seroquel that I did to 350 mg twice a day and her Depakote level came back at 94.3, which is within acceptable therapeutic range and no side effects with the medication, no sedation, no nausea, no extrapyramidal symptoms. I asked Dr. Li to consult on her regarding her high lipid profile and we will continue to work with the patient in group therapy, milieu therapy, adjust medication as needed. JOB# [id number]
--- NOTE | 2017-09-09 14:47 | Internal Medicine Prog Note ---
Internal Medicine Subjective - Subjective Service Date: 09/09/17 Patient is:: awake, verbal, interactive Per staff patient has:: no adverse event, eating well, noncompliant, tolerating meds Internal Medicine Objective - Results Result Diagrams: 08/30/17 17:47 08/30/17 17:47 Recent Labs: Laboratory Last Values WBC 7.7 Th/cmm (4.8-10.8) 08/30/17 17:47 RBC 4.62 Mil/cmm (3.80-5.20) 08/30/17 17:47 Hgb 14.4 gm/dL (-16) 08/30/17 17:47 Hct 43.4 % (41.0-60) 08/30/17 17:47 MCV 93.9 fl (81-100) 08/30/17 17:47 MCH 31.2 pg (27.0-31.0) H 08/30/17 17:47 MCHC Differential 33.2 pg (28.0-36.0) 08/30/17 17:47 RDW 13.7 % (11.5-20.0) 08/30/17 17:47 Plt Count 161 Th/cmm (150-400) 08/30/17 17:47 MPV 8.4 fl 08/30/17 17:47 Neutrophils (Manual) 28 % (40-80) L 08/30/17 17:47 Lymphocytes 60 % (20-50) H 08/30/17 17:47 Monocytes 8 % (2-10) 08/30/17 17:47 Eosinophils 2 % (0-5) 08/30/17 17:47 Atypical Lymphocytes 2 % 08/30/17 17:47 Platelet Estimate ADEQUATE (NORMAL) 08/30/17 17:47 Smear Path Review Y 08/30/17 17:47 Sodium 128 mEq/L (136-145) L 08/30/17 17:47 Potassium 4.3 mEq/L (3.5-5.1) 08/30/17 17:47 Chloride 93 mEq/L (98-107) L 08/30/17 17:47 Carbon Dioxide 26.4 mEq/L (21.0-31.0) 08/30/17 17:47 Anion Gap 12.9 (7.0-16.0) 08/30/17 17:47 BUN 23 mg/dL (7-25) 08/30/17 17:47 Creatinine 0.9 mg/dL (0.6-1.2) 08/30/17 17:47 Est GFR ( Amer) > 60.0 ml/min (>90) 08/30/17 17:47 Est GFR (Non-Af Amer) > 60.0 ml/min 08/30/17 17:47 BUN/Creatinine Ratio 25.6 08/30/17 17:47 Glucose 89 mg/dL (70-105) 08/30/17 17:47 Hemoglobin A1c % 5.3 % (4.0-6.0) 08/30/17 17:47 Calcium 9.4 mg/dL (8.6-10.3) 08/30/17 17:47 Total Bilirubin 0.3 mg/dL (0.3-1.0) 08/30/17 17:47 AST 15 U/L (13-39) 08/30/17 17:47 ALT 7 U/L (7-52) 08/30/17 17:47 Alkaline Phosphatase 75 U/L (34-104) 08/30/17 17:47 Total Protein 6.7 gm/dL (6.0-8.3) 08/30/17 17:47 Albumin 3.9 gm/dL (3.7-5.3) 08/30/17 17:47 Globulin 2.8 gm/dL 08/30/17 17:47 Albumin/Globulin Ratio 1.4 (1.0-1.8) 08/30/17 17:47 Triglycerides 174 mg/dL (<150) H 08/30/17 17:47 Cholesterol 231 mg/dL (<200) H 08/30/17 17:47 LDL Cholesterol Direct 170 mg/dL (75-193) 08/30/17 17:47 HDL Cholesterol 61 mg/dL (23-92) 08/30/17 17:47 TSH 3.26 uIU/ml (0.34-5.60) 08/30/17 17:47 Salicylates < 25.0 mg/L (30.0-100.0) L 08/30/17 17:47 Acetaminophen < 10.0 ug/mL (10.0-30.0) L 08/30/17 17:47 Valproic Acid 94.3 ug/mL (50.0-100.0) 09/06/17 12:00 Ethyl Alcohol < 10 mg/dL (0-10) 08/30/17 17:47 RPR NONREACTIVE (NONREACTIVE) 08/30/17 17:47 - Physical Exam Vitals and I&O: Vital Signs Temp 98.2 F 09/09/17 06:51 Pulse 73 09/09/17 10:12 Resp 19 09/09/17 06:51 BP 135/58 09/09/17 10:12 Pulse Ox 98 09/09/17 06:51 Intake & Output 09/08/17 09/09/17 09/09/17 18:59 06:59 18:59 Intake Total 1200 240 Balance 1200 240 Intake: Oral 1200 120 Other 120 Other: # Voids 2 # Bowel Movements 1 Stool Characteristics Soft Active Medications: Current Medications Acetaminophen (Tylenol) 650 mg PO BID [facility] Stop: 10/30/17 08:59 Last Admin: 09/09/17 09:13 Dose: Not Given Atorvastatin Calcium (Lipitor) 20 mg PO DAILY DIRK PRN Reason: Protocol Stop: 10/30/17 08:59 Last Admin: 09/09/17 09:12 Dose: 20 mg Bisacodyl (Dulcolax 10 Mg Supp) 10 mg RC Q24H PRN PRN Reason: IF NO BM IN THREE DAYS Stop: 10/29/17 21:21 Docusate Sodium (Colace) 250 mg PO BID [facility] Stop: 10/30/17 08:59 Last Admin: 09/09/17 09:13 Dose: Not Given Furosemide (Lasix) 20 mg PO BID [facility] Stop: 10/30/17 08:59 Last Admin: 09/09/17 09:12 Dose: 20 mg Lactulose (Cephulac) 30 gm PO HS [facility] Stop: 10/29/17 21:29 Last Admin: 09/08/17 20:54 Dose: Not Given Levothyroxine Sodium (Synthroid) 0.112 mg PO QDAC [facility] Stop: 10/30/17 07:29 Last Admin: 09/09/17 06:41 Dose: 0.112 mg Lorazepam (Ativan) 0.5 mg PO Q4HR PRN; Protocol PRN Reason: Anxiety Stop: 09/29/17 22:16 Magnesium Hydroxide (Milk Of Magnesia) 30 ml PO Q72H PRN PRN Reason: FOR NO BM IN THREE DAYS Stop: 10/29/17 21:21 Megestrol Acetate (Megace) 400 mg PO BID [facility] Stop: 10/30/17 08:59 Last Admin: 09/09/17 09:11 Dose: 400 mg Quetiapine Fumarate 300 mg/ (Quetiapine Fumarate 50 mg) 350 mg PO BID [facility] Stop: 11/05/17 16:59 Last Admin: 09/09/17 09:13 Dose: 350 mg Sodium Phosphate (Fleet Enema) 118 ml RC PRN PRN PRN Reason: IF BYSACODYL INEFFECTIVE Stop: 10/29/17 21:21 Valproate Sodium (Depakene) 1,000 mg PO BID [facility] Stop: 10/30/17 08:59 Last Admin: 09/09/17 09:11 Dose: 1,000 mg Zolpidem Tartrate (Ambien) 5 mg PO HS PRN PRN Reason: Insomnia Stop: 10/29/17 22:16 General: alert HEENT: NC/AT, PERRLA Neck: Supple Lungs: CTAB Cardiovascular: RRR, Normal S1, Normal S2, without murmur Abdomen: soft, non-tender, non-distended, positive bowel sound Internal Medicine Assmt/Plan - Assessment Assessment: htn dyslipidemia pud gerd arthritis schizophrenia bipolar - Plan Plan: monitor bp low fat diet will continue to follow patient continue current plan of care Nutritional Asmnt/Malnutr-PDOC - Dietary Evaluation Malnutrition Findings (Please click <Entered> for more info): Nutritional Asmnt/Malnutrition Start: 09/04/17 10: 54 Text: Status: Complete Freq: Document 09/04/17 10:54 KHUSHBU (Rec: 09/04/17 10:59 KHUSHBU POTTS [email or web address]) Nutritional Asmnt/Malnutrition Patient General Information Diagnosis Psychosis Pertinent Medical Hx/Surgical Hx HTN, dyslipidemia, PUD, GERD Subjective Information PT asleep at time of visit Current Diet Order/ Nutrition Support low sodium Pertinent Medications lipitor, bisacodyl, colace, lasix, lactulose, synthroid, MOM, megace, fleet enema Pertinent Labs 08/30: Na 128, K 4.3, Cl 93, CO2 26.4, BUN 23, Cr 0.9, Ca 9 .4, glucose 89 Nutritional Hx/Data Height 5 ft 8 in Height (Calculated Centimeters) 172.7 Current Weight (lbs) 225 lb Weight (Calculated Kilograms) 102.1 Weight (Calculated Grams) 434476.3 Body Mass Index (BMI) 34.2 Recent Weight Change No Weight Status Obese GI Symptoms GI Symptoms None Last BM 09/02 x 1 Difficult in: None Cultural/Ethnic/Evangelical Belief unknown Usual diet at home unknown Skin Integrity/Comment: vinh score 17 Estimated Nutritional Goals BEE in Kcals: Adj wt of IBW Calories/Kcals/Kg 25-30kcals/kg Kcals Calculated 1825-2190kcals/day Protein: Adj wt of IBW Protein g/k-1.2g/kg Protein Calculated 7388g/day Fluid: ml 1825-2190ml/day (1ml/kcal) Nutritional Problem 1. Problem Problem No nutrition diagnosis at this time Intervention/Recommendation Comments Recommend continuing Mechanical soft diet Expected Outcomes/Goals Expected Outcomes/Goals PO intake >75%
[2017-09-09] MEDS: Lactulose 10 Gm/15 mL 30mL UDC PO SCH (23:57)
[2017-09-10] MEDS: Levothyroxine 0.112 Mg Tab PO SCH (06:58)
[2017-09-10] MEDS: Atorvastatin Calcium 10 MG TAB PO SCH (08:37)
[2017-09-10] MEDS: Multivitamin w/ Minerals Tab PO SCH (08:38)
--- NOTE | 2017-09-10 15:41 | Internal Medicine Prog Note ---
Internal Medicine Subjective - Subjective Service Date: 09/10/17 Patient is:: awake, verbal, interactive Per staff patient has:: no adverse event, eating well, noncompliant, tolerating meds Internal Medicine Objective - Results Result Diagrams: 08/30/17 17:47 08/30/17 17:47 Recent Labs: Laboratory Last Values WBC 7.7 Th/cmm (4.8-10.8) 08/30/17 17:47 RBC 4.62 Mil/cmm (3.80-5.20) 08/30/17 17:47 Hgb 14.4 gm/dL (-16) 08/30/17 17:47 Hct 43.4 % (41.0-60) 08/30/17 17:47 MCV 93.9 fl (81-100) 08/30/17 17:47 MCH 31.2 pg (27.0-31.0) H 08/30/17 17:47 MCHC Differential 33.2 pg (28.0-36.0) 08/30/17 17:47 RDW 13.7 % (11.5-20.0) 08/30/17 17:47 Plt Count 161 Th/cmm (150-400) 08/30/17 17:47 MPV 8.4 fl 08/30/17 17:47 Neutrophils (Manual) 28 % (40-80) L 08/30/17 17:47 Lymphocytes 60 % (20-50) H 08/30/17 17:47 Monocytes 8 % (2-10) 08/30/17 17:47 Eosinophils 2 % (0-5) 08/30/17 17:47 Atypical Lymphocytes 2 % 08/30/17 17:47 Platelet Estimate ADEQUATE (NORMAL) 08/30/17 17:47 Smear Path Review Y 08/30/17 17:47 Sodium 128 mEq/L (136-145) L 08/30/17 17:47 Potassium 4.3 mEq/L (3.5-5.1) 08/30/17 17:47 Chloride 93 mEq/L (98-107) L 08/30/17 17:47 Carbon Dioxide 26.4 mEq/L (21.0-31.0) 08/30/17 17:47 Anion Gap 12.9 (7.0-16.0) 08/30/17 17:47 BUN 23 mg/dL (7-25) 08/30/17 17:47 Creatinine 0.9 mg/dL (0.6-1.2) 08/30/17 17:47 Est GFR ( Amer) > 60.0 ml/min (>90) 08/30/17 17:47 Est GFR (Non-Af Amer) > 60.0 ml/min 08/30/17 17:47 BUN/Creatinine Ratio 25.6 08/30/17 17:47 Glucose 89 mg/dL (70-105) 08/30/17 17:47 Hemoglobin A1c % 5.3 % (4.0-6.0) 08/30/17 17:47 Calcium 9.4 mg/dL (8.6-10.3) 08/30/17 17:47 Total Bilirubin 0.3 mg/dL (0.3-1.0) 08/30/17 17:47 AST 15 U/L (13-39) 08/30/17 17:47 ALT 7 U/L (7-52) 08/30/17 17:47 Alkaline Phosphatase 75 U/L (34-104) 08/30/17 17:47 Total Protein 6.7 gm/dL (6.0-8.3) 08/30/17 17:47 Albumin 3.9 gm/dL (3.7-5.3) 08/30/17 17:47 Globulin 2.8 gm/dL 08/30/17 17:47 Albumin/Globulin Ratio 1.4 (1.0-1.8) 08/30/17 17:47 Triglycerides 174 mg/dL (<150) H 08/30/17 17:47 Cholesterol 231 mg/dL (<200) H 08/30/17 17:47 LDL Cholesterol Direct 170 mg/dL (75-193) 08/30/17 17:47 HDL Cholesterol 61 mg/dL (23-92) 08/30/17 17:47 TSH 3.26 uIU/ml (0.34-5.60) 08/30/17 17:47 Salicylates < 25.0 mg/L (30.0-100.0) L 08/30/17 17:47 Acetaminophen < 10.0 ug/mL (10.0-30.0) L 08/30/17 17:47 Valproic Acid 94.3 ug/mL (50.0-100.0) 09/06/17 12:00 Ethyl Alcohol < 10 mg/dL (0-10) 08/30/17 17:47 RPR NONREACTIVE (NONREACTIVE) 08/30/17 17:47 - Physical Exam Vitals and I&O: Vital Signs Temp 97.5 F 09/10/17 14:00 Pulse 70 09/10/17 14:00 Resp 19 09/10/17 14:00 BP 109/56 09/10/17 14:00 Pulse Ox 98 09/10/17 14:00 Intake & Output 09/09/17 09/10/17 09/10/17 18:59 06:59 18:59 Intake Total 1200 Balance 1200 Intake: Oral 1200 Other: # Bowel Movements 1 Stool Characteristics Soft Soft Active Medications: Current Medications Acetaminophen (Tylenol) 650 mg PO BID [facility] Stop: 10/30/17 08:59 Last Admin: 09/10/17 08:38 Dose: 650 mg Atorvastatin Calcium (Lipitor) 20 mg PO DAILY [facility] PRN Reason: Protocol Stop: 10/30/17 08:59 Last Admin: 09/10/17 08:37 Dose: 20 mg Bisacodyl (Dulcolax 10 Mg Supp) 10 mg RC Q24H PRN PRN Reason: IF NO BM IN THREE DAYS Stop: 10/29/17 21:21 Docusate Sodium (Colace) 250 mg PO BID [facility] Stop: 10/30/17 08:59 Last Admin: 09/10/17 08:38 Dose: 250 mg Furosemide (Lasix) 20 mg PO BID [facility] Stop: 10/30/17 08:59 Last Admin: 09/10/17 08:38 Dose: 20 mg Lactulose (Cephulac) 30 gm PO HS [facility] Stop: 10/29/17 21:29 Last Admin: 09/09/17 23:57 Dose: Not Given Levothyroxine Sodium (Synthroid) 0.112 mg PO QDAC [facility] Stop: 10/30/17 07:29 Last Admin: 09/10/17 06:58 Dose: Not Given Lorazepam (Ativan) 0.5 mg PO Q4HR PRN; Protocol PRN Reason: Anxiety Stop: 09/29/17 22:16 Magnesium Hydroxide (Milk Of Magnesia) 30 ml PO Q72H PRN PRN Reason: FOR NO BM IN THREE DAYS Stop: 10/29/17 21:21 Megestrol Acetate (Megace) 400 mg PO BID [facility] Stop: 10/30/17 08:59 Last Admin: 09/10/17 08:37 Dose: 400 mg Quetiapine Fumarate 300 mg/ (Quetiapine Fumarate 50 mg) 350 mg PO BID [facility] Stop: 11/05/17 16:59 Last Admin: 09/10/17 09:54 Dose: 350 mg Sodium Phosphate (Fleet Enema) 118 ml RC PRN PRN PRN Reason: IF BYSACODYL INEFFECTIVE Stop: 10/29/17 21:21 Valproate Sodium (Depakene) 1,000 mg PO BID [facility] Stop: 10/30/17 08:59 Last Admin: 09/10/17 08:37 Dose: 1,000 mg Zolpidem Tartrate (Ambien) 5 mg PO HS PRN PRN Reason: Insomnia Stop: 10/29/17 22:16 General: alert HEENT: NC/AT, PERRLA Neck: Supple Lungs: CTAB Cardiovascular: RRR, Normal S1, Normal S2, without murmur Abdomen: soft, non-tender, non-distended, positive bowel sound Internal Medicine Assmt/Plan - Assessment Assessment: htn dyslipidemia pud gerd arthritis schizophrenia bipolar - Plan Plan: monitor bp low fat diet will continue to follow patient continue current plan of care Nutritional Asmnt/Malnutr-PDOC - Dietary Evaluation Malnutrition Findings (Please click <Entered> for more info): Nutritional Asmnt/Malnutrition Start: 09/04/17 10: 54 Text: Status: Complete Freq: Document 09/04/17 10:54 KHUSHBU (Rec: 09/04/17 10:59 KHUSHBU POTTS [email or web address]) Nutritional Asmnt/Malnutrition Patient General Information Diagnosis Psychosis Pertinent Medical Hx/Surgical Hx HTN, dyslipidemia, PUD, GERD Subjective Information PT asleep at time of visit Current Diet Order/ Nutrition Support low sodium Pertinent Medications lipitor, bisacodyl, colace, lasix, lactulose, synthroid, MOM, megace, fleet enema Pertinent Labs 08/30: Na 128, K 4.3, Cl 93, CO2 26.4, BUN 23, Cr 0.9, Ca 9 .4, glucose 89 Nutritional Hx/Data Height 5 ft 8 in Height (Calculated Centimeters) 172.7 Current Weight (lbs) 225 lb Weight (Calculated Kilograms) 102.1 Weight (Calculated Grams) 833036.3 Body Mass Index (BMI) 34.2 Recent Weight Change No Weight Status Obese GI Symptoms GI Symptoms None Last BM 09/02 x 1 Difficult in: None Cultural/Ethnic/Voodoo Belief unknown Usual diet at home unknown Skin Integrity/Comment: vinh score 17 Estimated Nutritional Goals BEE in Kcals: Adj wt of IBW Calories/Kcals/Kg 25-30kcals/kg Kcals Calculated 1825-2190kcals/day Protein: Adj wt of IBW Protein g/k-1.2g/kg Protein Calculated 7388g/day Fluid: ml 1825-2190ml/day (1ml/kcal) Nutritional Problem 1. Problem Problem No nutrition diagnosis at this time Intervention/Recommendation Comments Recommend continuing Mechanical soft diet Expected Outcomes/Goals Expected Outcomes/Goals PO intake >75%
[2017-09-10] MEDS: Lactulose 10 Gm/15 mL 30mL UDC PO SCH (20:39)
[2017-09-11] MEDS: Levothyroxine 0.112 Mg Tab PO SCH (06:30)
--- NOTE | 2017-09-11 07:44 | Progress Notes ---
DATE: 09/10/2017 SUBJECTIVE: The patient is currently in the hospital, aggressive behavior, psychosis, poor historian, confusion. On [id number], the patient fixated on her medical problems. When I asked her why she is in the hospital, she states that she fell down an elevator shaft. When I asked that this happened recently, she states no. When I asked her why she is in the hospital right now, she alludes to hurting her knees in the past, fixated, ruminative. Dr. Talavera has been seeing this patient since admission, noting extremely trouble self-care, impulsive, unpredictable. Medications were noted including dosages and frequencies. The patient is not safe for a lower level of care, still symptomatic. ASSESSMENT: The patient remains symptomatic, ruminative, confused, disoriented, impulsive, unpredictable. PLAN: We will continue to monitor given her ongoing symptoms. The patient is not safe for discharge at this time. JOB# [id number]
[2017-09-11] MEDS: Atorvastatin Calcium 10 MG TAB PO SCH (09:16)
[2017-09-11] MEDS: Multivitamin w/ Minerals Tab PO SCH (09:17)
--- NOTE | 2017-09-11 12:35 | Internal Medicine Prog Note ---
Internal Medicine Subjective - Subjective Patient seen and examined:: with staff, chart reviewed Patient is:: awake, verbal, interactive Per staff patient has:: no adverse event, eating well, noncompliant, tolerating meds Internal Medicine Objective - Results Result Diagrams: 08/30/17 17:47 08/30/17 17:47 Recent Labs: Laboratory Last Values WBC 7.7 Th/cmm (4.8-10.8) 08/30/17 17:47 RBC 4.62 Mil/cmm (3.80-5.20) 08/30/17 17:47 Hgb 14.4 gm/dL (-16) 08/30/17 17:47 Hct 43.4 % (41.0-60) 08/30/17 17:47 MCV 93.9 fl (81-100) 08/30/17 17:47 MCH 31.2 pg (27.0-31.0) H 08/30/17 17:47 MCHC Differential 33.2 pg (28.0-36.0) 08/30/17 17:47 RDW 13.7 % (11.5-20.0) 08/30/17 17:47 Plt Count 161 Th/cmm (150-400) 08/30/17 17:47 MPV 8.4 fl 08/30/17 17:47 Neutrophils (Manual) 28 % (40-80) L 08/30/17 17:47 Lymphocytes 60 % (20-50) H 08/30/17 17:47 Monocytes 8 % (2-10) 08/30/17 17:47 Eosinophils 2 % (0-5) 08/30/17 17:47 Atypical Lymphocytes 2 % 08/30/17 17:47 Platelet Estimate ADEQUATE (NORMAL) 08/30/17 17:47 Smear Path Review Y 08/30/17 17:47 Sodium 128 mEq/L (136-145) L 08/30/17 17:47 Potassium 4.3 mEq/L (3.5-5.1) 08/30/17 17:47 Chloride 93 mEq/L (98-107) L 08/30/17 17:47 Carbon Dioxide 26.4 mEq/L (21.0-31.0) 08/30/17 17:47 Anion Gap 12.9 (7.0-16.0) 08/30/17 17:47 BUN 23 mg/dL (7-25) 08/30/17 17:47 Creatinine 0.9 mg/dL (0.6-1.2) 08/30/17 17:47 Est GFR ( Amer) > 60.0 ml/min (>90) 08/30/17 17:47 Est GFR (Non-Af Amer) > 60.0 ml/min 08/30/17 17:47 BUN/Creatinine Ratio 25.6 08/30/17 17:47 Glucose 89 mg/dL (70-105) 08/30/17 17:47 Hemoglobin A1c % 5.3 % (4.0-6.0) 08/30/17 17:47 Calcium 9.4 mg/dL (8.6-10.3) 08/30/17 17:47 Total Bilirubin 0.3 mg/dL (0.3-1.0) 08/30/17 17:47 AST 15 U/L (13-39) 08/30/17 17:47 ALT 7 U/L (7-52) 08/30/17 17:47 Alkaline Phosphatase 75 U/L (34-104) 08/30/17 17:47 Total Protein 6.7 gm/dL (6.0-8.3) 08/30/17 17:47 Albumin 3.9 gm/dL (3.7-5.3) 08/30/17 17:47 Globulin 2.8 gm/dL 08/30/17 17:47 Albumin/Globulin Ratio 1.4 (1.0-1.8) 08/30/17 17:47 Triglycerides 174 mg/dL (<150) H 08/30/17 17:47 Cholesterol 231 mg/dL (<200) H 08/30/17 17:47 LDL Cholesterol Direct 170 mg/dL (75-193) 08/30/17 17:47 HDL Cholesterol 61 mg/dL (23-92) 08/30/17 17:47 TSH 3.26 uIU/ml (0.34-5.60) 08/30/17 17:47 Salicylates < 25.0 mg/L (30.0-100.0) L 08/30/17 17:47 Acetaminophen < 10.0 ug/mL (10.0-30.0) L 08/30/17 17:47 Valproic Acid 94.3 ug/mL (50.0-100.0) 09/06/17 12:00 Ethyl Alcohol < 10 mg/dL (0-10) 08/30/17 17:47 RPR NONREACTIVE (NONREACTIVE) 08/30/17 17:47 - Physical Exam Vitals and I&O: Vital Signs Temp 98.3 F 09/10/17 20:27 Pulse 60 09/11/17 11:09 Resp 19 09/11/17 11:09 BP 110/60 09/11/17 09:18 Pulse Ox 98 09/10/17 20:27 Intake & Output 09/10/17 09/11/17 09/11/17 18:59 06:59 18:59 Intake Total 1200 240 Balance 1200 240 Intake: Oral 1200 240 Other: # Voids 2 # Bowel Movements 1 Stool Characteristics Soft Soft Formed Active Medications: Current Medications Acetaminophen (Tylenol) 650 mg PO BID [facility] Stop: 10/30/17 08:59 Last Admin: 09/11/17 09:16 Dose: 650 mg Atorvastatin Calcium (Lipitor) 20 mg PO DAILY DIRK PRN Reason: Protocol Stop: 10/30/17 08:59 Last Admin: 09/11/17 09:16 Dose: 20 mg Bisacodyl (Dulcolax 10 Mg Supp) 10 mg RC Q24H PRN PRN Reason: IF NO BM IN THREE DAYS Stop: 10/29/17 21:21 Docusate Sodium (Colace) 250 mg PO BID [facility] Stop: 10/30/17 08:59 Last Admin: 09/11/17 09:17 Dose: 250 mg Furosemide (Lasix) 20 mg PO BID [facility] Stop: 10/30/17 08:59 Last Admin: 09/11/17 09:18 Dose: 20 mg Lactulose (Cephulac) 30 gm PO HS [facility] Stop: 10/29/17 21:29 Last Admin: 09/10/17 20:39 Dose: Not Given Levothyroxine Sodium (Synthroid) 0.112 mg PO QDAC [facility] Stop: 10/30/17 07:29 Last Admin: 09/11/17 06:30 Dose: 0.112 mg Lorazepam (Ativan) 0.5 mg PO Q4HR PRN; Protocol PRN Reason: Anxiety Stop: 09/29/17 22:16 Magnesium Hydroxide (Milk Of Magnesia) 30 ml PO Q72H PRN PRN Reason: FOR NO BM IN THREE DAYS Stop: 10/29/17 21:21 Megestrol Acetate (Megace) 400 mg PO BID [facility] Stop: 10/30/17 08:59 Last Admin: 09/11/17 09:16 Dose: 400 mg Quetiapine Fumarate 300 mg/ (Quetiapine Fumarate 50 mg) 350 mg PO BID [facility] Stop: 11/05/17 16:59 Last Admin: 09/11/17 09:18 Dose: 350 mg Sodium Phosphate (Fleet Enema) 118 ml RC PRN PRN PRN Reason: IF BYSACODYL INEFFECTIVE Stop: 10/29/17 21:21 Valproate Sodium (Depakene) 1,000 mg PO BID [facility] Stop: 10/30/17 08:59 Last Admin: 09/11/17 09:15 Dose: 1,000 mg Zolpidem Tartrate (Ambien) 5 mg PO HS PRN PRN Reason: Insomnia Stop: 10/29/17 22:16 General: alert HEENT: NC/AT, PERRLA Neck: Supple Lungs: CTAB Cardiovascular: RRR, Normal S1, Normal S2, without murmur Abdomen: soft, non-tender, non-distended, positive bowel sound Internal Medicine Assmt/Plan - Assessment Assessment: - Assessment Assessment: htn dyslipidemia pud gerd arthritis schizophrenia bipolar - Plan Plan: monitor bp low fat diet will continue to follow patient continue current plan of care - Plan Plan: meds and orders noted eusebio vallejo Nutritional Asmnt/Malnutr-PDOC - Dietary Evaluation Malnutrition Findings (Please click <Entered> for more info): Nutritional Asmnt/Malnutrition Start: 09/04/17 10: 54 Text: Status: Complete Freq: Document 09/04/17 10:54 KHUSHBU (Rec: 09/04/17 10:59 KHUSHBU POTTS [email or web address]) Nutritional Asmnt/Malnutrition Patient General Information Diagnosis Psychosis Pertinent Medical Hx/Surgical Hx HTN, dyslipidemia, PUD, GERD Subjective Information PT asleep at time of visit Current Diet Order/ Nutrition Support low sodium Pertinent Medications lipitor, bisacodyl, colace, lasix, lactulose, synthroid, MOM, megace, fleet enema Pertinent Labs 08/30: Na 128, K 4.3, Cl 93, CO2 26.4, BUN 23, Cr 0.9, Ca 9 .4, glucose 89 Nutritional Hx/Data Height 1.73 m Height (Calculated Centimeters) 172.7 Current Weight (lbs) 102.058 kg Weight (Calculated Kilograms) 102.1 Weight (Calculated Grams) 014635.3 Body Mass Index (BMI) 34.2 Recent Weight Change No Weight Status Obese GI Symptoms GI Symptoms None Last BM 09/02 x 1 Difficult in: None Cultural/Ethnic/Judaism Belief unknown Usual diet at home unknown Skin Integrity/Comment: vinh score 17 Estimated Nutritional Goals BEE in Kcals: Adj wt of IBW Calories/Kcals/Kg 25-30kcals/kg Kcals Calculated 1825-2190kcals/day Protein: Adj wt of IBW Protein g/k-1.2g/kg Protein Calculated 7388g/day Fluid: ml 1825-2190ml/day (1ml/kcal) Nutritional Problem 1. Problem Problem No nutrition diagnosis at this time Intervention/Recommendation Comments Recommend continuing Mechanical soft diet Expected Outcomes/Goals Expected Outcomes/Goals PO intake >75%
[2017-09-11] MEDS: Lactulose 10 Gm/15 mL 30mL UDC PO SCH (20:17)
[2017-09-12] MEDS: Levothyroxine 0.112 Mg Tab PO SCH (07:00)
[2017-09-12] MEDS: Atorvastatin Calcium 10 MG TAB PO SCH (09:27)
[2017-09-12] MEDS: Multivitamin w/ Minerals Tab PO SCH (09:28)
--- NOTE | 2017-09-12 10:08 | Internal Medicine Prog Note ---
Internal Medicine Subjective - Subjective Patient seen and examined:: with staff, chart reviewed Patient is:: awake, verbal, interactive Per staff patient has:: no adverse event, eating well, noncompliant, tolerating meds Internal Medicine Objective - Results Result Diagrams: 08/30/17 17:47 08/30/17 17:47 Recent Labs: Laboratory Last Values WBC 7.7 Th/cmm (4.8-10.8) 08/30/17 17:47 RBC 4.62 Mil/cmm (3.80-5.20) 08/30/17 17:47 Hgb 14.4 gm/dL (-16) 08/30/17 17:47 Hct 43.4 % (41.0-60) 08/30/17 17:47 MCV 93.9 fl (81-100) 08/30/17 17:47 MCH 31.2 pg (27.0-31.0) H 08/30/17 17:47 MCHC Differential 33.2 pg (28.0-36.0) 08/30/17 17:47 RDW 13.7 % (11.5-20.0) 08/30/17 17:47 Plt Count 161 Th/cmm (150-400) 08/30/17 17:47 MPV 8.4 fl 08/30/17 17:47 Neutrophils (Manual) 28 % (40-80) L 08/30/17 17:47 Lymphocytes 60 % (20-50) H 08/30/17 17:47 Monocytes 8 % (2-10) 08/30/17 17:47 Eosinophils 2 % (0-5) 08/30/17 17:47 Atypical Lymphocytes 2 % 08/30/17 17:47 Platelet Estimate ADEQUATE (NORMAL) 08/30/17 17:47 Smear Path Review Y 08/30/17 17:47 Sodium 128 mEq/L (136-145) L 08/30/17 17:47 Potassium 4.3 mEq/L (3.5-5.1) 08/30/17 17:47 Chloride 93 mEq/L (98-107) L 08/30/17 17:47 Carbon Dioxide 26.4 mEq/L (21.0-31.0) 08/30/17 17:47 Anion Gap 12.9 (7.0-16.0) 08/30/17 17:47 BUN 23 mg/dL (7-25) 08/30/17 17:47 Creatinine 0.9 mg/dL (0.6-1.2) 08/30/17 17:47 Est GFR ( Amer) > 60.0 ml/min (>90) 08/30/17 17:47 Est GFR (Non-Af Amer) > 60.0 ml/min 08/30/17 17:47 BUN/Creatinine Ratio 25.6 08/30/17 17:47 Glucose 89 mg/dL (70-105) 08/30/17 17:47 Hemoglobin A1c % 5.3 % (4.0-6.0) 08/30/17 17:47 Calcium 9.4 mg/dL (8.6-10.3) 08/30/17 17:47 Total Bilirubin 0.3 mg/dL (0.3-1.0) 08/30/17 17:47 AST 15 U/L (13-39) 08/30/17 17:47 ALT 7 U/L (7-52) 08/30/17 17:47 Alkaline Phosphatase 75 U/L (34-104) 08/30/17 17:47 Total Protein 6.7 gm/dL (6.0-8.3) 08/30/17 17:47 Albumin 3.9 gm/dL (3.7-5.3) 08/30/17 17:47 Globulin 2.8 gm/dL 08/30/17 17:47 Albumin/Globulin Ratio 1.4 (1.0-1.8) 08/30/17 17:47 Triglycerides 174 mg/dL (<150) H 08/30/17 17:47 Cholesterol 231 mg/dL (<200) H 08/30/17 17:47 LDL Cholesterol Direct 170 mg/dL (75-193) 08/30/17 17:47 HDL Cholesterol 61 mg/dL (23-92) 08/30/17 17:47 TSH 3.26 uIU/ml (0.34-5.60) 08/30/17 17:47 Salicylates < 25.0 mg/L (30.0-100.0) L 08/30/17 17:47 Acetaminophen < 10.0 ug/mL (10.0-30.0) L 08/30/17 17:47 Valproic Acid 94.3 ug/mL (50.0-100.0) 09/06/17 12:00 Ethyl Alcohol < 10 mg/dL (0-10) 08/30/17 17:47 RPR NONREACTIVE (NONREACTIVE) 08/30/17 17:47 - Physical Exam Vitals and I&O: Vital Signs Temp 97.3 F 09/12/17 06:34 Pulse 65 09/12/17 09:28 Resp 16 09/12/17 06:34 BP 127/71 09/12/17 09:28 Pulse Ox 98 09/12/17 06:34 Intake & Output 09/11/17 09/12/17 09/12/17 18:59 06:59 18:59 Intake Total 800 240 Balance 800 240 Intake: Oral 800 240 Other: # Voids 3 1 # Bowel Movements 0 Stool Characteristics Soft Formed Active Medications: Current Medications Acetaminophen (Tylenol) 650 mg PO BID [facility] Stop: 10/30/17 08:59 Last Admin: 09/12/17 09:27 Dose: 650 mg Atorvastatin Calcium (Lipitor) 20 mg PO DAILY [facility] PRN Reason: Protocol Stop: 10/30/17 08:59 Last Admin: 09/12/17 09:27 Dose: 20 mg Bisacodyl (Dulcolax 10 Mg Supp) 10 mg RC Q24H PRN PRN Reason: IF NO BM IN THREE DAYS Stop: 10/29/17 21:21 Docusate Sodium (Colace) 250 mg PO BID [facility] Stop: 10/30/17 08:59 Last Admin: 09/12/17 09:28 Dose: 250 mg Furosemide (Lasix) 20 mg PO BID [facility] Stop: 10/30/17 08:59 Last Admin: 09/12/17 09:28 Dose: 20 mg Lactulose (Cephulac) 30 gm PO HS [facility] Stop: 10/29/17 21:29 Last Admin: 09/11/17 20:17 Dose: 30 gm Levothyroxine Sodium (Synthroid) 0.112 mg PO QDAC [facility] Stop: 10/30/17 07:29 Last Admin: 09/11/17 06:30 Dose: 0.112 mg Lorazepam (Ativan) 0.5 mg PO Q4HR PRN; Protocol PRN Reason: Anxiety Stop: 09/29/17 22:16 Magnesium Hydroxide (Milk Of Magnesia) 30 ml PO Q72H PRN PRN Reason: FOR NO BM IN THREE DAYS Stop: 10/29/17 21:21 Megestrol Acetate (Megace) 400 mg PO BID [facility] Stop: 10/30/17 08:59 Last Admin: 09/12/17 09:27 Dose: 400 mg Quetiapine Fumarate 300 mg/ (Quetiapine Fumarate 50 mg) 350 mg PO BID [facility] Stop: 11/05/17 16:59 Last Admin: 09/12/17 09:28 Dose: 350 mg Sodium Phosphate (Fleet Enema) 118 ml RC PRN PRN PRN Reason: IF BYSACODYL INEFFECTIVE Stop: 10/29/17 21:21 Valproate Sodium (Depakene) 1,000 mg PO BID [facility] Stop: 10/30/17 08:59 Last Admin: 09/12/17 09:27 Dose: 1,000 mg Zolpidem Tartrate (Ambien) 5 mg PO HS PRN PRN Reason: Insomnia Stop: 10/29/17 22:16 General: alert HEENT: NC/AT, PERRLA Neck: Supple Lungs: CTAB Cardiovascular: RRR, Normal S1, Normal S2, without murmur Abdomen: soft, non-tender, non-distended, positive bowel sound Internal Medicine Assmt/Plan - Assessment Assessment: - Assessment Assessment: htn dyslipidemia pud gerd arthritis schizophrenia bipolar - Plan Plan: monitor bp low fat diet will continue to follow patient continue current plan of care - Plan Plan: meds and orders noted eusebio vallejo Nutritional Asmnt/Malnutr-PDOC - Dietary Evaluation Malnutrition Findings (Please click <Entered> for more info): Nutritional Asmnt/Malnutrition Start: 09/04/17 10: 54 Text: Status: Complete Freq: Document 09/04/17 10:54 KHUSHBU (Rec: 09/04/17 10:59 KHUSHBU POTTS [email or web address]) Nutritional Asmnt/Malnutrition Patient General Information Diagnosis Psychosis Pertinent Medical Hx/Surgical Hx HTN, dyslipidemia, PUD, GERD Subjective Information PT asleep at time of visit Current Diet Order/ Nutrition Support low sodium Pertinent Medications lipitor, bisacodyl, colace, lasix, lactulose, synthroid, MOM, megace, fleet enema Pertinent Labs 08/30: Na 128, K 4.3, Cl 93, CO2 26.4, BUN 23, Cr 0.9, Ca 9 .4, glucose 89 Nutritional Hx/Data Height 1.73 m Height (Calculated Centimeters) 172.7 Current Weight (lbs) 102.058 kg Weight (Calculated Kilograms) 102.1 Weight (Calculated Grams) 894556.3 Body Mass Index (BMI) 34.2 Recent Weight Change No Weight Status Obese GI Symptoms GI Symptoms None Last BM 09/02 x 1 Difficult in: None Cultural/Ethnic/Hoahaoism Belief unknown Usual diet at home unknown Skin Integrity/Comment: vinh score 17 Estimated Nutritional Goals BEE in Kcals: Adj wt of IBW Calories/Kcals/Kg 25-30kcals/kg Kcals Calculated 1825-2190kcals/day Protein: Adj wt of IBW Protein g/k-1.2g/kg Protein Calculated 7388g/day Fluid: ml 1825-2190ml/day (1ml/kcal) Nutritional Problem 1. Problem Problem No nutrition diagnosis at this time Intervention/Recommendation Comments Recommend continuing Mechanical soft diet Expected Outcomes/Goals Expected Outcomes/Goals PO intake >75%
[2017-09-12] MEDS: Lactulose 10 Gm/15 mL 30mL UDC PO SCH (21:27)
--- NOTE | 2017-09-13 05:58 | Progress Notes ---
DATE: 09/11/2017 SUBJECTIVE: The patient was seen and evaluated. The patient's chart reviewed. Overnight, nursing staff reported that the patient at times finds herself withdrawn and isolated. Today on [id number] evaluation, she continues to be observed to be slightly flat affect and withdrawn. She reports no side effects of the medications. She complains of no nausea, no sedation, and no EPS symptoms. Recently, her medications were increased of the Seroquel and also the Depakote level came back at 94.3. MENTAL STATUS EXAMINATION: Still observed to be withdrawn, distraught. ASSESSMENT AND PLAN: The patient is a 67-year-old female with a history of schizoaffective disorder, who is tolerating the recent increase of quetiapine at 350 twice a day and Depakote at 1000 mg b.i.d. with the Depakote levels as noted above at 94.3. We will continue monitoring and evaluating with the current medication regimen due to the patient's intermittently psychotic behavior. She is unable to formulate a safe plan. JOB# [id number]
[2017-09-13] MEDS: Levothyroxine 0.112 Mg Tab PO SCH (06:55)
[2017-09-13] MEDS: Multivitamin w/ Minerals Tab PO SCH (08:12)
[2017-09-13] MEDS: Atorvastatin Calcium 10 MG TAB PO SCH (08:13)
--- NOTE | 2017-09-13 12:40 | Internal Medicine Prog Note ---
Internal Medicine Subjective - Subjective Service Date: 09/13/17 Patient is:: awake, verbal, interactive Per staff patient has:: no adverse event, eating well, noncompliant, tolerating meds Internal Medicine Objective - Results Result Diagrams: 08/30/17 17:47 08/30/17 17:47 Recent Labs: Laboratory Last Values WBC 7.7 Th/cmm (4.8-10.8) 08/30/17 17:47 RBC 4.62 Mil/cmm (3.80-5.20) 08/30/17 17:47 Hgb 14.4 gm/dL (-16) 08/30/17 17:47 Hct 43.4 % (41.0-60) 08/30/17 17:47 MCV 93.9 fl (81-100) 08/30/17 17:47 MCH 31.2 pg (27.0-31.0) H 08/30/17 17:47 MCHC Differential 33.2 pg (28.0-36.0) 08/30/17 17:47 RDW 13.7 % (11.5-20.0) 08/30/17 17:47 Plt Count 161 Th/cmm (150-400) 08/30/17 17:47 MPV 8.4 fl 08/30/17 17:47 Neutrophils (Manual) 28 % (40-80) L 08/30/17 17:47 Lymphocytes 60 % (20-50) H 08/30/17 17:47 Monocytes 8 % (2-10) 08/30/17 17:47 Eosinophils 2 % (0-5) 08/30/17 17:47 Atypical Lymphocytes 2 % 08/30/17 17:47 Platelet Estimate ADEQUATE (NORMAL) 08/30/17 17:47 Smear Path Review Y 08/30/17 17:47 Sodium 128 mEq/L (136-145) L 08/30/17 17:47 Potassium 4.3 mEq/L (3.5-5.1) 08/30/17 17:47 Chloride 93 mEq/L (98-107) L 08/30/17 17:47 Carbon Dioxide 26.4 mEq/L (21.0-31.0) 08/30/17 17:47 Anion Gap 12.9 (7.0-16.0) 08/30/17 17:47 BUN 23 mg/dL (7-25) 08/30/17 17:47 Creatinine 0.9 mg/dL (0.6-1.2) 08/30/17 17:47 Est GFR ( Amer) > 60.0 ml/min (>90) 08/30/17 17:47 Est GFR (Non-Af Amer) > 60.0 ml/min 08/30/17 17:47 BUN/Creatinine Ratio 25.6 08/30/17 17:47 Glucose 89 mg/dL (70-105) 08/30/17 17:47 Hemoglobin A1c % 5.3 % (4.0-6.0) 08/30/17 17:47 Calcium 9.4 mg/dL (8.6-10.3) 08/30/17 17:47 Total Bilirubin 0.3 mg/dL (0.3-1.0) 08/30/17 17:47 AST 15 U/L (13-39) 08/30/17 17:47 ALT 7 U/L (7-52) 08/30/17 17:47 Alkaline Phosphatase 75 U/L (34-104) 08/30/17 17:47 Total Protein 6.7 gm/dL (6.0-8.3) 08/30/17 17:47 Albumin 3.9 gm/dL (3.7-5.3) 08/30/17 17:47 Globulin 2.8 gm/dL 08/30/17 17:47 Albumin/Globulin Ratio 1.4 (1.0-1.8) 08/30/17 17:47 Triglycerides 174 mg/dL (<150) H 08/30/17 17:47 Cholesterol 231 mg/dL (<200) H 08/30/17 17:47 LDL Cholesterol Direct 170 mg/dL (75-193) 08/30/17 17:47 HDL Cholesterol 61 mg/dL (23-92) 08/30/17 17:47 TSH 3.26 uIU/ml (0.34-5.60) 08/30/17 17:47 Salicylates < 25.0 mg/L (30.0-100.0) L 08/30/17 17:47 Acetaminophen < 10.0 ug/mL (10.0-30.0) L 08/30/17 17:47 Valproic Acid 94.3 ug/mL (50.0-100.0) 09/06/17 12:00 Ethyl Alcohol < 10 mg/dL (0-10) 08/30/17 17:47 RPR NONREACTIVE (NONREACTIVE) 08/30/17 17:47 - Physical Exam Vitals and I&O: Vital Signs Temp 98.2 F 09/13/17 05:56 Pulse 103 09/13/17 09:14 Resp 19 09/13/17 08:00 BP 144/61 09/13/17 09:14 Pulse Ox 100 09/13/17 05:56 Intake & Output 09/12/17 09/13/17 09/13/17 18:59 06:59 18:59 Intake Total 800 360 Balance 800 360 Weight (lbs) 225 lb Intake: Oral 800 360 Other: # Voids 3 2 # Bowel Movements 0 1 Active Medications: Current Medications Acetaminophen (Tylenol) 650 mg PO BID [facility] Stop: 10/30/17 08:59 Last Admin: 09/13/17 08:13 Dose: 650 mg Atorvastatin Calcium (Lipitor) 20 mg PO DAILY [facility] PRN Reason: Protocol Stop: 10/30/17 08:59 Last Admin: 09/13/17 08:13 Dose: 20 mg Bisacodyl (Dulcolax 10 Mg Supp) 10 mg RC Q24H PRN PRN Reason: IF NO BM IN THREE DAYS Stop: 10/29/17 21:21 Docusate Sodium (Colace) 250 mg PO BID [facility] Stop: 10/30/17 08:59 Last Admin: 09/13/17 08:12 Dose: 250 mg Furosemide (Lasix) 20 mg PO BID [facility] Stop: 10/30/17 08:59 Last Admin: 09/13/17 08:14 Dose: 20 mg Lactulose (Cephulac) 30 gm PO HS [facility] Stop: 10/29/17 21:29 Last Admin: 09/12/17 21:27 Dose: 30 gm Levothyroxine Sodium (Synthroid) 0.112 mg PO QDAC [facility] Stop: 10/30/17 07:29 Last Admin: 09/13/17 06:55 Dose: 0.112 mg Lorazepam (Ativan) 0.5 mg PO Q4HR PRN; Protocol PRN Reason: Anxiety Stop: 09/29/17 22:16 Magnesium Hydroxide (Milk Of Magnesia) 30 ml PO Q72H PRN PRN Reason: FOR NO BM IN THREE DAYS Stop: 10/29/17 21:21 Megestrol Acetate (Megace) 400 mg PO BID [facility] Stop: 10/30/17 08:59 Last Admin: 09/13/17 08:15 Dose: 400 mg Quetiapine Fumarate (Seroquel) 375 mg PO BID [facility] Stop: 11/12/17 12:34 Sodium Phosphate (Fleet Enema) 118 ml RC PRN PRN PRN Reason: IF BYSACODYL INEFFECTIVE Stop: 10/29/17 21:21 Valproate Sodium (Depakene) 1,000 mg PO BID [facility] Stop: 10/30/17 08:59 Last Admin: 09/13/17 08:15 Dose: 1,000 mg Zolpidem Tartrate (Ambien) 5 mg PO HS PRN PRN Reason: Insomnia Stop: 10/29/17 22:16 General: alert HEENT: NC/AT, PERRLA Neck: Supple Lungs: CTAB Cardiovascular: RRR, Normal S1, Normal S2, without murmur Abdomen: soft, non-tender, non-distended, positive bowel sound Internal Medicine Assmt/Plan - Assessment Assessment: htn dyslipidemia pud gerd arthritis schizophrenia bipolar - Plan Plan: monitor bp low fat diet will continue to follow patient continue current plan of care Nutritional Asmnt/Malnutr-PDOC - Dietary Evaluation Malnutrition Findings (Please click <Entered> for more info): Nutritional Asmnt/Malnutrition Start: 09/04/17 10: 54 Text: Status: Complete Freq: Document 09/04/17 10:54 KHUSHBU (Rec: 09/04/17 10:59 KHUSHBU POTTS [email or web address]) Nutritional Asmnt/Malnutrition Patient General Information Diagnosis Psychosis Pertinent Medical Hx/Surgical Hx HTN, dyslipidemia, PUD, GERD Subjective Information PT asleep at time of visit Current Diet Order/ Nutrition Support low sodium Pertinent Medications lipitor, bisacodyl, colace, lasix, lactulose, synthroid, MOM, megace, fleet enema Pertinent Labs 08/30: Na 128, K 4.3, Cl 93, CO2 26.4, BUN 23, Cr 0.9, Ca 9 .4, glucose 89 Nutritional Hx/Data Height 5 ft 8 in Height (Calculated Centimeters) 172.7 Current Weight (lbs) 225 lb Weight (Calculated Kilograms) 102.1 Weight (Calculated Grams) 606609.3 Body Mass Index (BMI) 34.2 Recent Weight Change No Weight Status Obese GI Symptoms GI Symptoms None Last BM 09/02 x 1 Difficult in: None Cultural/Ethnic/Druze Belief unknown Usual diet at home unknown Skin Integrity/Comment: vinh score 17 Estimated Nutritional Goals BEE in Kcals: Adj wt of IBW Calories/Kcals/Kg 25-30kcals/kg Kcals Calculated 1825-2190kcals/day Protein: Adj wt of IBW Protein g/k-1.2g/kg Protein Calculated 7388g/day Fluid: ml 1825-2190ml/day (1ml/kcal) Nutritional Problem 1. Problem Problem No nutrition diagnosis at this time Intervention/Recommendation Comments Recommend continuing Mechanical soft diet Expected Outcomes/Goals Expected Outcomes/Goals PO intake >75%
--- NOTE | 2017-09-13 16:02 | Progress Notes ---
DATE: 09/12/2017 SUBJECTIVE: The patient was seen and evaluated. The patient's chart was reviewed. Overnight, the patient's nursing staff reported that the patient has mostly been easily irritable and selectively refusing her medications ____ last night. Today, on [id number] evaluation, the patient is in her room, easily irritable, agitated, and reported the medications are not working when providing ____ being compliant with medications, she becomes more irritable and then starts ____ on something that is not associated with her treatment. MENTAL STATUS EXAMINATION: Disorganized, ruminating, confused, disoriented. ASSESSMENT AND PLAN: The patient continues to be easily irritable, disorganized, easily agitated, and perseverating. We will continue with the current psychiatrist's treatment plan and goals, which include quetiapine ____ b.i.d., Depakote 1000 mg p.o. b.i.d. We will continue checking a Depakote level to target the patient's underlying labile behavior. JOB# [id number]
[2017-09-13] MEDS: QUEtiapine Fumarate 300 MG, QUEtiapine Fumarate 50 MG, QUEtiapine Fumarate 25 MG PO SCH (17:12)
[2017-09-13] MEDS: Lactulose 10 Gm/15 mL 30mL UDC PO SCH (21:26)
--- NOTE | 2017-09-13 22:51 | Progress Notes ---
DATE: 09/13/2017 Case was discussed with staff of the patient, reviewed records. The patient continues to look disheveled, disorganized, and internally preoccupied. Continues to be delusional. Continues to be not showing much progress other than being in the dining room, but she is internally preoccupied, can participate in meaningful conversation and make safe plan for self-care. Continues to have poor insight. Her Depakote level came back at 94.3, which is within acceptable range. I will be increasing her Seroquel dose to 375 mg twice a day and so far no side effects, no sedation, no nausea, and no extrapyramidal symptoms. Still at risk for discharge because of all the above. We will continue to work with the patient in group therapy, milieu therapy, and adjust her medications as needed. JOB# [id number]
[2017-09-14] MEDS: Levothyroxine 0.112 Mg Tab PO SCH (06:33)
[2017-09-14] MEDS: Atorvastatin Calcium 10 MG TAB PO SCH (09:20)
[2017-09-14] MEDS: QUEtiapine Fumarate 300 MG, QUEtiapine Fumarate 50 MG, QUEtiapine Fumarate 25 MG PO SCH ×2 (09:21→16:58)
[2017-09-14] MEDS: Multivitamin w/ Minerals Tab PO SCH (09:23)
--- NOTE | 2017-09-14 12:55 | Internal Medicine Prog Note ---
Internal Medicine Subjective - Subjective Service Date: 09/14/17 Patient is:: awake, verbal, interactive Per staff patient has:: no adverse event, eating well, noncompliant, tolerating meds Internal Medicine Objective - Results Result Diagrams: 08/30/17 17:47 08/30/17 17:47 Recent Labs: Laboratory Last Values WBC 7.7 Th/cmm (4.8-10.8) 08/30/17 17:47 RBC 4.62 Mil/cmm (3.80-5.20) 08/30/17 17:47 Hgb 14.4 gm/dL (-16) 08/30/17 17:47 Hct 43.4 % (41.0-60) 08/30/17 17:47 MCV 93.9 fl (81-100) 08/30/17 17:47 MCH 31.2 pg (27.0-31.0) H 08/30/17 17:47 MCHC Differential 33.2 pg (28.0-36.0) 08/30/17 17:47 RDW 13.7 % (11.5-20.0) 08/30/17 17:47 Plt Count 161 Th/cmm (150-400) 08/30/17 17:47 MPV 8.4 fl 08/30/17 17:47 Neutrophils (Manual) 28 % (40-80) L 08/30/17 17:47 Lymphocytes 60 % (20-50) H 08/30/17 17:47 Monocytes 8 % (2-10) 08/30/17 17:47 Eosinophils 2 % (0-5) 08/30/17 17:47 Atypical Lymphocytes 2 % 08/30/17 17:47 Platelet Estimate ADEQUATE (NORMAL) 08/30/17 17:47 Smear Path Review Y 08/30/17 17:47 Sodium 128 mEq/L (136-145) L 08/30/17 17:47 Potassium 4.3 mEq/L (3.5-5.1) 08/30/17 17:47 Chloride 93 mEq/L (98-107) L 08/30/17 17:47 Carbon Dioxide 26.4 mEq/L (21.0-31.0) 08/30/17 17:47 Anion Gap 12.9 (7.0-16.0) 08/30/17 17:47 BUN 23 mg/dL (7-25) 08/30/17 17:47 Creatinine 0.9 mg/dL (0.6-1.2) 08/30/17 17:47 Est GFR ( Amer) > 60.0 ml/min (>90) 08/30/17 17:47 Est GFR (Non-Af Amer) > 60.0 ml/min 08/30/17 17:47 BUN/Creatinine Ratio 25.6 08/30/17 17:47 Glucose 89 mg/dL (70-105) 08/30/17 17:47 Hemoglobin A1c % 5.3 % (4.0-6.0) 08/30/17 17:47 Calcium 9.4 mg/dL (8.6-10.3) 08/30/17 17:47 Total Bilirubin 0.3 mg/dL (0.3-1.0) 08/30/17 17:47 AST 15 U/L (13-39) 08/30/17 17:47 ALT 7 U/L (7-52) 08/30/17 17:47 Alkaline Phosphatase 75 U/L (34-104) 08/30/17 17:47 Total Protein 6.7 gm/dL (6.0-8.3) 08/30/17 17:47 Albumin 3.9 gm/dL (3.7-5.3) 08/30/17 17:47 Globulin 2.8 gm/dL 08/30/17 17:47 Albumin/Globulin Ratio 1.4 (1.0-1.8) 08/30/17 17:47 Triglycerides 174 mg/dL (<150) H 08/30/17 17:47 Cholesterol 231 mg/dL (<200) H 08/30/17 17:47 LDL Cholesterol Direct 170 mg/dL (75-193) 08/30/17 17:47 HDL Cholesterol 61 mg/dL (23-92) 08/30/17 17:47 TSH 3.26 uIU/ml (0.34-5.60) 08/30/17 17:47 Salicylates < 25.0 mg/L (30.0-100.0) L 08/30/17 17:47 Acetaminophen < 10.0 ug/mL (10.0-30.0) L 08/30/17 17:47 Valproic Acid 94.3 ug/mL (50.0-100.0) 09/06/17 12:00 Ethyl Alcohol < 10 mg/dL (0-10) 08/30/17 17:47 RPR NONREACTIVE (NONREACTIVE) 08/30/17 17:47 - Physical Exam Vitals and I&O: Vital Signs Temp 98.4 F 09/13/17 14:00 Pulse 77 09/14/17 09:22 Resp 20 09/14/17 08:00 BP 122/70 09/14/17 09:21 Pulse Ox 97 09/13/17 14:00 Intake & Output 09/13/17 09/14/17 09/14/17 18:59 06:59 18:59 Intake Total 1000 Balance 1000 Intake: Oral 1000 Other: # Voids 4 # Bowel Movements 1 Active Medications: Current Medications Acetaminophen (Tylenol) 650 mg PO BID [facility] Stop: 10/30/17 08:59 Last Admin: 09/14/17 09:20 Dose: 650 mg Atorvastatin Calcium (Lipitor) 20 mg PO DAILY [facility] PRN Reason: Protocol Stop: 10/30/17 08:59 Last Admin: 09/14/17 09:20 Dose: 20 mg Bisacodyl (Dulcolax 10 Mg Supp) 10 mg RC Q24H PRN PRN Reason: IF NO BM IN THREE DAYS Stop: 10/29/17 21:21 Docusate Sodium (Colace) 250 mg PO BID [facility] Stop: 10/30/17 08:59 Last Admin: 09/14/17 09:21 Dose: 250 mg Furosemide (Lasix) 20 mg PO BID [facility] Stop: 10/30/17 08:59 Last Admin: 09/14/17 09:21 Dose: 20 mg Lactulose (Cephulac) 30 gm PO HS [facility] Stop: 10/29/17 21:29 Last Admin: 09/13/17 21:26 Dose: 30 gm Levothyroxine Sodium (Synthroid) 0.112 mg PO QDAC [facility] Stop: 10/30/17 07:29 Last Admin: 09/14/17 06:33 Dose: 0.112 mg Lorazepam (Ativan) 0.5 mg PO Q4HR PRN; Protocol PRN Reason: Anxiety Stop: 09/29/17 22:16 Magnesium Hydroxide (Milk Of Magnesia) 30 ml PO Q72H PRN PRN Reason: FOR NO BM IN THREE DAYS Stop: 10/29/17 21:21 Megestrol Acetate (Megace) 400 mg PO BID [facility] Stop: 10/30/17 08:59 Last Admin: 09/14/17 09:21 Dose: 400 mg Quetiapine Fumarate 300 mg/Quetiapine Fumarate 50 mg/Quetiapine Fumarate 25 mg 375 mg PO BID [facility] Stop: 11/12/17 16:59 Last Admin: 09/14/17 09:21 Dose: 375 mg Sodium Phosphate (Fleet Enema) 118 ml RC PRN PRN PRN Reason: IF BYSACODYL INEFFECTIVE Stop: 10/29/17 21:21 Valproate Sodium (Depakene) 1,000 mg PO BID [facility] Stop: 10/30/17 08:59 Last Admin: 09/14/17 09:20 Dose: 1,000 mg Zolpidem Tartrate (Ambien) 5 mg PO HS PRN PRN Reason: Insomnia Stop: 10/29/17 22:16 General: alert HEENT: NC/AT, PERRLA Neck: Supple Lungs: CTAB Cardiovascular: RRR, Normal S1, Normal S2, without murmur Abdomen: soft, non-tender, non-distended, positive bowel sound Internal Medicine Assmt/Plan - Assessment Assessment: htn dyslipidemia pud gerd arthritis schizophrenia bipolar - Plan Plan: monitor bp low fat diet will continue to follow patient continue current plan of care Nutritional Asmnt/Malnutr-PDOC - Dietary Evaluation Malnutrition Findings (Please click <Entered> for more info): Nutritional Asmnt/Malnutrition Start: 09/04/17 10: 54 Text: Status: Complete Freq: Document 09/04/17 10:54 KHUSHBU (Rec: 09/04/17 10:59 KHUSHBU POTTS [email or web address]) Nutritional Asmnt/Malnutrition Patient General Information Diagnosis Psychosis Pertinent Medical Hx/Surgical Hx HTN, dyslipidemia, PUD, GERD Subjective Information PT asleep at time of visit Current Diet Order/ Nutrition Support low sodium Pertinent Medications lipitor, bisacodyl, colace, lasix, lactulose, synthroid, MOM, megace, fleet enema Pertinent Labs 08/30: Na 128, K 4.3, Cl 93, CO2 26.4, BUN 23, Cr 0.9, Ca 9 .4, glucose 89 Nutritional Hx/Data Height 5 ft 8 in Height (Calculated Centimeters) 172.7 Current Weight (lbs) 225 lb Weight (Calculated Kilograms) 102.1 Weight (Calculated Grams) 297854.3 Body Mass Index (BMI) 34.2 Recent Weight Change No Weight Status Obese GI Symptoms GI Symptoms None Last BM 09/02 x 1 Difficult in: None Cultural/Ethnic/Alevism Belief unknown Usual diet at home unknown Skin Integrity/Comment: vinh score 17 Estimated Nutritional Goals BEE in Kcals: Adj wt of IBW Calories/Kcals/Kg 25-30kcals/kg Kcals Calculated 1825-2190kcals/day Protein: Adj wt of IBW Protein g/k-1.2g/kg Protein Calculated 7388g/day Fluid: ml 1825-2190ml/day (1ml/kcal) Nutritional Problem 1. Problem Problem No nutrition diagnosis at this time Intervention/Recommendation Comments Recommend continuing Mechanical soft diet Expected Outcomes/Goals Expected Outcomes/Goals PO intake >75%
--- NOTE | 2017-09-14 19:40 | Progress Notes ---
DATE: 09/14/2017 Case was discussed with staff of the patient, reviewed records. The patient continues to be delusional, paranoid, continues to be unable to make safe plan for self-care. Looking disheveled, disorganized, internally occupied, so I did increase her dose of Seroquel yesterday to 375 mg twice a day. No side effects, no sedation, no nausea, no extrapyramidal symptoms. Still very poor insight and unable to take care of her own ADLs and need full help with the staff and we will continue to work with the patient in group therapy, milieu therapy, and adjust the medication as needed. JOB# [id number]
[2017-09-14] MEDS: Lactulose 10 Gm/15 mL 30mL UDC PO SCH (21:00)
[2017-09-15] MEDS: QUEtiapine Fumarate 300 MG, QUEtiapine Fumarate 50 MG, QUEtiapine Fumarate 25 MG PO SCH ×2 (11:04→17:54)
[2017-09-15] MEDS: Multivitamin w/ Minerals Tab PO SCH (11:05)
--- NOTE | 2017-09-15 12:15 | Internal Medicine Prog Note ---
Internal Medicine Subjective - Subjective Service Date: 09/15/17 Patient is:: awake, verbal, interactive Per staff patient has:: no adverse event, eating well, noncompliant, tolerating meds Internal Medicine Objective - Results Result Diagrams: 08/30/17 17:47 08/30/17 17:47 Recent Labs: Laboratory Last Values WBC 7.7 Th/cmm (4.8-10.8) 08/30/17 17:47 RBC 4.62 Mil/cmm (3.80-5.20) 08/30/17 17:47 Hgb 14.4 gm/dL (-16) 08/30/17 17:47 Hct 43.4 % (41.0-60) 08/30/17 17:47 MCV 93.9 fl (81-100) 08/30/17 17:47 MCH 31.2 pg (27.0-31.0) H 08/30/17 17:47 MCHC Differential 33.2 pg (28.0-36.0) 08/30/17 17:47 RDW 13.7 % (11.5-20.0) 08/30/17 17:47 Plt Count 161 Th/cmm (150-400) 08/30/17 17:47 MPV 8.4 fl 08/30/17 17:47 Neutrophils (Manual) 28 % (40-80) L 08/30/17 17:47 Lymphocytes 60 % (20-50) H 08/30/17 17:47 Monocytes 8 % (2-10) 08/30/17 17:47 Eosinophils 2 % (0-5) 08/30/17 17:47 Atypical Lymphocytes 2 % 08/30/17 17:47 Platelet Estimate ADEQUATE (NORMAL) 08/30/17 17:47 Smear Path Review Y 08/30/17 17:47 Sodium 128 mEq/L (136-145) L 08/30/17 17:47 Potassium 4.3 mEq/L (3.5-5.1) 08/30/17 17:47 Chloride 93 mEq/L (98-107) L 08/30/17 17:47 Carbon Dioxide 26.4 mEq/L (21.0-31.0) 08/30/17 17:47 Anion Gap 12.9 (7.0-16.0) 08/30/17 17:47 BUN 23 mg/dL (7-25) 08/30/17 17:47 Creatinine 0.9 mg/dL (0.6-1.2) 08/30/17 17:47 Est GFR ( Amer) > 60.0 ml/min (>90) 08/30/17 17:47 Est GFR (Non-Af Amer) > 60.0 ml/min 08/30/17 17:47 BUN/Creatinine Ratio 25.6 08/30/17 17:47 Glucose 89 mg/dL (70-105) 08/30/17 17:47 Hemoglobin A1c % 5.3 % (4.0-6.0) 08/30/17 17:47 Calcium 9.4 mg/dL (8.6-10.3) 08/30/17 17:47 Total Bilirubin 0.3 mg/dL (0.3-1.0) 08/30/17 17:47 AST 15 U/L (13-39) 08/30/17 17:47 ALT 7 U/L (7-52) 08/30/17 17:47 Alkaline Phosphatase 75 U/L (34-104) 08/30/17 17:47 Total Protein 6.7 gm/dL (6.0-8.3) 08/30/17 17:47 Albumin 3.9 gm/dL (3.7-5.3) 08/30/17 17:47 Globulin 2.8 gm/dL 08/30/17 17:47 Albumin/Globulin Ratio 1.4 (1.0-1.8) 08/30/17 17:47 Triglycerides 174 mg/dL (<150) H 08/30/17 17:47 Cholesterol 231 mg/dL (<200) H 08/30/17 17:47 LDL Cholesterol Direct 170 mg/dL (75-193) 08/30/17 17:47 HDL Cholesterol 61 mg/dL (23-92) 08/30/17 17:47 TSH 3.26 uIU/ml (0.34-5.60) 08/30/17 17:47 Salicylates < 25.0 mg/L (30.0-100.0) L 08/30/17 17:47 Acetaminophen < 10.0 ug/mL (10.0-30.0) L 08/30/17 17:47 Valproic Acid 94.3 ug/mL (50.0-100.0) 09/06/17 12:00 Ethyl Alcohol < 10 mg/dL (0-10) 08/30/17 17:47 RPR NONREACTIVE (NONREACTIVE) 08/30/17 17:47 - Physical Exam Vitals and I&O: Vital Signs Temp 97.8 F 09/15/17 07:57 Pulse 64 09/15/17 07:57 Resp 20 09/15/17 07:57 BP 141/70 09/15/17 11:03 Pulse Ox 99 09/15/17 07:57 Intake & Output 09/14/17 09/15/17 09/15/17 18:59 06:59 18:59 Intake Total 240 240 Balance 240 240 Intake: Oral 240 240 Other: # Voids 1 2 # Bowel Movements 1 Active Medications: Current Medications Acetaminophen (Tylenol) 650 mg PO BID [facility] Stop: 10/30/17 08:59 Last Admin: 09/15/17 11:05 Dose: 650 mg Atorvastatin Calcium (Lipitor) 20 mg PO DAILY DIRK PRN Reason: Protocol Stop: 10/30/17 08:59 Last Admin: 09/14/17 09:20 Dose: 20 mg Bisacodyl (Dulcolax 10 Mg Supp) 10 mg RC Q24H PRN PRN Reason: IF NO BM IN THREE DAYS Stop: 10/29/17 21:21 Docusate Sodium (Colace) 250 mg PO BID [facility] Stop: 10/30/17 08:59 Last Admin: 09/15/17 11:03 Dose: 250 mg Furosemide (Lasix) 20 mg PO BID [facility] Stop: 10/30/17 08:59 Last Admin: 09/15/17 11:03 Dose: 20 mg Lactulose (Cephulac) 30 gm PO HS [facility] Stop: 10/29/17 21:29 Last Admin: 09/14/17 21:00 Dose: Not Given Levothyroxine Sodium (Synthroid) 0.112 mg PO QDAC [facility]IR[facility] Stop: 10/30/17 07:29 Last Admin: 09/14/17 06:33 Dose: 0.112 mg Lorazepam (Ativan) 0.5 mg PO Q4HR PRN; Protocol PRN Reason: Anxiety Stop: 09/29/17 22:16 Magnesium Hydroxide (Milk Of Magnesia) 30 ml PO Q72H PRN PRN Reason: FOR NO BM IN THREE DAYS Stop: 10/29/17 21:21 Megestrol Acetate (Megace) 400 mg PO BID [facility] Stop: 10/30/17 08:59 Last Admin: 09/14/17 16:56 Dose: 400 mg Quetiapine Fumarate 300 mg/Quetiapine Fumarate 50 mg/Quetiapine Fumarate 25 mg 375 mg PO BID [facility] Stop: 11/12/17 16:59 Last Admin: 09/15/17 11:04 Dose: 375 mg Sodium Phosphate (Fleet Enema) 118 ml RC PRN PRN PRN Reason: IF BYSACODYL INEFFECTIVE Stop: 10/29/17 21:21 Valproate Sodium (Depakene) 1,000 mg PO BID [facility] Stop: 10/30/17 08:59 Last Admin: 09/15/17 11:05 Dose: 1,000 mg Zolpidem Tartrate (Ambien) 5 mg PO HS PRN PRN Reason: Insomnia Stop: 10/29/17 22:16 General: alert HEENT: NC/AT, PERRLA Neck: Supple Lungs: CTAB Cardiovascular: RRR, Normal S1, Normal S2, without murmur Abdomen: soft, non-tender, non-distended, positive bowel sound Internal Medicine Assmt/Plan - Assessment Assessment: htn dyslipidemia pud gerd arthritis schizophrenia bipolar - Plan Plan: monitor bp low fat diet will continue to follow patient continue current plan of care Nutritional Asmnt/Malnutr-PDOC - Dietary Evaluation Malnutrition Findings (Please click <Entered> for more info): Nutritional Asmnt/Malnutrition Start: 09/04/17 10: 54 Text: Status: Complete Freq: Document 09/04/17 10:54 KHUSHBU (Rec: 09/04/17 10:59 KHUSHBU DELROY [email or web address]) Nutritional Asmnt/Malnutrition Patient General Information Diagnosis Psychosis Pertinent Medical Hx/Surgical Hx HTN, dyslipidemia, PUD, GERD Subjective Information PT asleep at time of visit Current Diet Order/ Nutrition Support low sodium Pertinent Medications lipitor, bisacodyl, colace, lasix, lactulose, synthroid, MOM, megace, fleet enema Pertinent Labs 08/30: Na 128, K 4.3, Cl 93, CO2 26.4, BUN 23, Cr 0.9, Ca 9 .4, glucose 89 Nutritional Hx/Data Height 5 ft 8 in Height (Calculated Centimeters) 172.7 Current Weight (lbs) 225 lb Weight (Calculated Kilograms) 102.1 Weight (Calculated Grams) 346110.3 Body Mass Index (BMI) 34.2 Recent Weight Change No Weight Status Obese GI Symptoms GI Symptoms None Last BM 09/02 x 1 Difficult in: None Cultural/Ethnic/Worship Belief unknown Usual diet at home unknown Skin Integrity/Comment: vinh score 17 Estimated Nutritional Goals BEE in Kcals: Adj wt of IBW Calories/Kcals/Kg 25-30kcals/kg Kcals Calculated 1825-2190kcals/day Protein: Adj wt of IBW Protein g/k-1.2g/kg Protein Calculated 7388g/day Fluid: ml 1825-2190ml/day (1ml/kcal) Nutritional Problem 1. Problem Problem No nutrition diagnosis at this time Intervention/Recommendation Comments Recommend continuing Mechanical soft diet Expected Outcomes/Goals Expected Outcomes/Goals PO intake >75%
--- NOTE | 2017-09-15 16:26 | Progress Notes ---
DATE: 09/15/2017 Case was discussed with staff of the patient and reviewed records. The patient continues to be unpredictable, impulsive, continues to need the care with her ADLs. She is incontinent. She is not sure why she is here. She admits that she was hospitalized at least 4 times before, but she does not know why. She believes she lives on her own, though here she has to be helped with her ADLs. She continues to look disheveled, disorganized, internally preoccupied, though she denies any auditory or visual hallucination, but she has very concrete thinking. I tried to ask her where she lives, she says she lives in [place] by herself, which cannot be true. Her Depakote level came back 94.1. She is on a high dose of Depakote at 1000 mg twice a day. She tolerated the increase of Seroquel to 375 mg twice a day with no side effects. She is still highly unpredictable, unable to formulate a safe plan for her self-care. No sedation. No nausea. No extrapyramidal symptoms. Confused. She is not on Namenda. She knows the date. She does not know the president of [facility]. Very concrete thinking. Her lab work showed CBC with high MCH, the rest within normal range. TSH within normal range. MRSA is negative and her chemistry panel shows high cholesterol, high triglycerides, and low sodium and high chloride. The rest within normal range. I already consulted Dr. Li regarding that. We will continue patient in group therapy, milieu therapy, and adjust the medication as needed. JOB# [id number]
[2017-09-15] MEDS: Levothyroxine 0.112 Mg Tab PO SCH (17:49)
[2017-09-15] MEDS: Atorvastatin Calcium 10 MG TAB PO SCH (17:49)
[2017-09-15] MEDS: Lactulose 10 Gm/15 mL 30mL UDC PO SCH (21:46)
[2017-09-16] MEDS: Levothyroxine 0.112 Mg Tab PO SCH (06:41)
--- NOTE | 2017-09-16 12:16 | Internal Medicine Prog Note ---
Internal Medicine Subjective - Subjective Service Date: 09/16/17 Patient is:: awake, verbal, interactive Per staff patient has:: no adverse event, eating well, noncompliant, tolerating meds Internal Medicine Objective - Results Result Diagrams: 08/30/17 17:47 08/30/17 17:47 Recent Labs: Laboratory Last Values WBC 7.7 Th/cmm (4.8-10.8) 08/30/17 17:47 RBC 4.62 Mil/cmm (3.80-5.20) 08/30/17 17:47 Hgb 14.4 gm/dL (-16) 08/30/17 17:47 Hct 43.4 % (41.0-60) 08/30/17 17:47 MCV 93.9 fl (81-100) 08/30/17 17:47 MCH 31.2 pg (27.0-31.0) H 08/30/17 17:47 MCHC Differential 33.2 pg (28.0-36.0) 08/30/17 17:47 RDW 13.7 % (11.5-20.0) 08/30/17 17:47 Plt Count 161 Th/cmm (150-400) 08/30/17 17:47 MPV 8.4 fl 08/30/17 17:47 Neutrophils (Manual) 28 % (40-80) L 08/30/17 17:47 Lymphocytes 60 % (20-50) H 08/30/17 17:47 Monocytes 8 % (2-10) 08/30/17 17:47 Eosinophils 2 % (0-5) 08/30/17 17:47 Atypical Lymphocytes 2 % 08/30/17 17:47 Platelet Estimate ADEQUATE (NORMAL) 08/30/17 17:47 Smear Path Review Y 08/30/17 17:47 Sodium 128 mEq/L (136-145) L 08/30/17 17:47 Potassium 4.3 mEq/L (3.5-5.1) 08/30/17 17:47 Chloride 93 mEq/L (98-107) L 08/30/17 17:47 Carbon Dioxide 26.4 mEq/L (21.0-31.0) 08/30/17 17:47 Anion Gap 12.9 (7.0-16.0) 08/30/17 17:47 BUN 23 mg/dL (7-25) 08/30/17 17:47 Creatinine 0.9 mg/dL (0.6-1.2) 08/30/17 17:47 Est GFR ( Amer) > 60.0 ml/min (>90) 08/30/17 17:47 Est GFR (Non-Af Amer) > 60.0 ml/min 08/30/17 17:47 BUN/Creatinine Ratio 25.6 08/30/17 17:47 Glucose 89 mg/dL (70-105) 08/30/17 17:47 Hemoglobin A1c % 5.3 % (4.0-6.0) 08/30/17 17:47 Calcium 9.4 mg/dL (8.6-10.3) 08/30/17 17:47 Total Bilirubin 0.3 mg/dL (0.3-1.0) 08/30/17 17:47 AST 15 U/L (13-39) 08/30/17 17:47 ALT 7 U/L (7-52) 08/30/17 17:47 Alkaline Phosphatase 75 U/L (34-104) 08/30/17 17:47 Total Protein 6.7 gm/dL (6.0-8.3) 08/30/17 17:47 Albumin 3.9 gm/dL (3.7-5.3) 08/30/17 17:47 Globulin 2.8 gm/dL 08/30/17 17:47 Albumin/Globulin Ratio 1.4 (1.0-1.8) 08/30/17 17:47 Triglycerides 174 mg/dL (<150) H 08/30/17 17:47 Cholesterol 231 mg/dL (<200) H 08/30/17 17:47 LDL Cholesterol Direct 170 mg/dL (75-193) 08/30/17 17:47 HDL Cholesterol 61 mg/dL (23-92) 08/30/17 17:47 TSH 3.26 uIU/ml (0.34-5.60) 08/30/17 17:47 Salicylates < 25.0 mg/L (30.0-100.0) L 08/30/17 17:47 Acetaminophen < 10.0 ug/mL (10.0-30.0) L 08/30/17 17:47 Valproic Acid 94.3 ug/mL (50.0-100.0) 09/06/17 12:00 Ethyl Alcohol < 10 mg/dL (0-10) 08/30/17 17:47 RPR NONREACTIVE (NONREACTIVE) 08/30/17 17:47 - Physical Exam Vitals and I&O: Vital Signs Temp 97.8 F 09/15/17 15:41 Pulse 72 09/15/17 17:50 Resp 20 09/15/17 15:41 BP 136/67 09/15/17 17:54 Pulse Ox 99 09/15/17 07:57 Intake & Output 09/15/17 09/16/17 09/16/17 18:59 06:59 18:59 Intake Total 1340 Balance 1340 Intake: Oral 1340 Other: # Voids 3 # Bowel Movements 1 Active Medications: Current Medications Acetaminophen (Tylenol) 650 mg PO BID [facility] Stop: 10/30/17 08:59 Last Admin: 09/15/17 17:53 Dose: 650 mg Atorvastatin Calcium (Lipitor) 20 mg PO DAILY DIRK PRN Reason: Protocol Stop: 10/30/17 08:59 Last Admin: 09/15/17 17:49 Dose: Not Given Bisacodyl (Dulcolax 10 Mg Supp) 10 mg RC Q24H PRN PRN Reason: IF NO BM IN THREE DAYS Stop: 10/29/17 21:21 Docusate Sodium (Colace) 250 mg PO BID [facility] Stop: 10/30/17 08:59 Last Admin: 09/15/17 17:54 Dose: Not Given Furosemide (Lasix) 20 mg PO BID [facility] Stop: 10/30/17 08:59 Last Admin: 09/15/17 17:54 Dose: 20 mg Lactulose (Cephulac) 30 gm PO HS [facility] Stop: 10/29/17 21:29 Last Admin: 09/15/17 21:46 Dose: Not Given Levothyroxine Sodium (Synthroid) 0.112 mg PO QDAC [facility] Stop: 10/30/17 07:29 Last Admin: 09/16/17 06:41 Dose: 0.112 mg Lorazepam (Ativan) 0.5 mg PO Q4HR PRN; Protocol PRN Reason: Anxiety Stop: 09/29/17 22:16 Magnesium Hydroxide (Milk Of Magnesia) 30 ml PO Q72H PRN PRN Reason: FOR NO BM IN THREE DAYS Stop: 10/29/17 21:21 Megestrol Acetate (Megace) 400 mg PO BID [facility] Stop: 10/30/17 08:59 Last Admin: 09/15/17 17:52 Dose: Not Given Quetiapine Fumarate 300 mg/Quetiapine Fumarate 50 mg/Quetiapine Fumarate 25 mg 375 mg PO BID [facility] Stop: 11/12/17 16:59 Last Admin: 09/15/17 17:54 Dose: 375 mg Sodium Phosphate (Fleet Enema) 118 ml RC PRN PRN PRN Reason: IF BYSACODYL INEFFECTIVE Stop: 10/29/17 21:21 Valproate Sodium (Depakene) 1,000 mg PO BID [facility] Stop: 10/30/17 08:59 Last Admin: 09/15/17 17:50 Dose: 1,000 mg Zolpidem Tartrate (Ambien) 5 mg PO HS PRN PRN Reason: Insomnia Stop: 10/29/17 22:16 General: alert HEENT: NC/AT, PERRLA Neck: Supple Lungs: CTAB Cardiovascular: RRR, Normal S1, Normal S2, without murmur Abdomen: soft, non-tender, non-distended, positive bowel sound Internal Medicine Assmt/Plan - Assessment Assessment: htn dyslipidemia pud gerd arthritis schizophrenia bipolar - Plan Plan: monitor bp low fat diet will continue to follow patient continue current plan of care Nutritional Asmnt/Malnutr-PDOC - Dietary Evaluation Malnutrition Findings (Please click <Entered> for more info): Nutritional Asmnt/Malnutrition Start: 09/04/17 10: 54 Text: Status: Complete Freq: Document 09/04/17 10:54 KHUSHBU (Rec: 09/04/17 10:59 KHUSHBU POTTS [email or web address]) Nutritional Asmnt/Malnutrition Patient General Information Diagnosis Psychosis Pertinent Medical Hx/Surgical Hx HTN, dyslipidemia, PUD, GERD Subjective Information PT asleep at time of visit Current Diet Order/ Nutrition Support low sodium Pertinent Medications lipitor, bisacodyl, colace, lasix, lactulose, synthroid, MOM, megace, fleet enema Pertinent Labs 08/30: Na 128, K 4.3, Cl 93, CO2 26.4, BUN 23, Cr 0.9, Ca 9 .4, glucose 89 Nutritional Hx/Data Height 5 ft 8 in Height (Calculated Centimeters) 172.7 Current Weight (lbs) 225 lb Weight (Calculated Kilograms) 102.1 Weight (Calculated Grams) 842171.3 Body Mass Index (BMI) 34.2 Recent Weight Change No Weight Status Obese GI Symptoms GI Symptoms None Last BM 09/02 x 1 Difficult in: None Cultural/Ethnic/Voodoo Belief unknown Usual diet at home unknown Skin Integrity/Comment: vinh score 17 Estimated Nutritional Goals BEE in Kcals: Adj wt of IBW Calories/Kcals/Kg 25-30kcals/kg Kcals Calculated 1825-2190kcals/day Protein: Adj wt of IBW Protein g/k-1.2g/kg Protein Calculated 7388g/day Fluid: ml 1825-2190ml/day (1ml/kcal) Nutritional Problem 1. Problem Problem No nutrition diagnosis at this time Intervention/Recommendation Comments Recommend continuing Mechanical soft diet Expected Outcomes/Goals Expected Outcomes/Goals PO intake >75%
[2017-09-16] MEDS: Atorvastatin Calcium 10 MG TAB PO SCH (12:47)
[2017-09-16] MEDS: Multivitamin w/ Minerals Tab PO SCH (12:47)
--- NOTE | 2017-09-16 14:01 | Progress Notes ---
DATE: 09/16/2017 Case was discussed with staff of the patient, reviewed records. The patient has been internally preoccupied. Continues to be at times paranoid, continues to be unable to make safe plan for self-care, easily agitated also confused at times and that varies from one unit to the other. She continues to need redirection, delusional. She is compliant with the medication with no side effects, no sedation. She has no extrapyramidal symptoms. Her Depakote level though she is on 1000 mg twice a day, but her Depakote level is 94.3 which is within acceptable therapeutic range. She need total care with her ADLs, so she can feed herself and we will continue to work with the patient in group therapy, milieu therapy, adjust medication as needed. JOB# [id number]
[2017-09-16] MEDS: Lactulose 10 Gm/15 mL 30mL UDC PO SCH (20:32)
[2017-09-17] MEDS: Levothyroxine 0.112 Mg Tab PO SCH (07:07)
[2017-09-17] MEDS: Multivitamin w/ Minerals Tab PO SCH (10:12)
[2017-09-17] MEDS: Atorvastatin Calcium 10 MG TAB PO SCH (10:14)
--- NOTE | 2017-09-17 13:32 | Internal Medicine Prog Note ---
Internal Medicine Subjective - Subjective Service Date: 09/17/17 Patient is:: awake, verbal, interactive Per staff patient has:: no adverse event, eating well, noncompliant, tolerating meds Internal Medicine Objective - Results Result Diagrams: 08/30/17 17:47 08/30/17 17:47 Recent Labs: Laboratory Last Values WBC 7.7 Th/cmm (4.8-10.8) 08/30/17 17:47 RBC 4.62 Mil/cmm (3.80-5.20) 08/30/17 17:47 Hgb 14.4 gm/dL (-16) 08/30/17 17:47 Hct 43.4 % (41.0-60) 08/30/17 17:47 MCV 93.9 fl (81-100) 08/30/17 17:47 MCH 31.2 pg (27.0-31.0) H 08/30/17 17:47 MCHC Differential 33.2 pg (28.0-36.0) 08/30/17 17:47 RDW 13.7 % (11.5-20.0) 08/30/17 17:47 Plt Count 161 Th/cmm (150-400) 08/30/17 17:47 MPV 8.4 fl 08/30/17 17:47 Neutrophils (Manual) 28 % (40-80) L 08/30/17 17:47 Lymphocytes 60 % (20-50) H 08/30/17 17:47 Monocytes 8 % (2-10) 08/30/17 17:47 Eosinophils 2 % (0-5) 08/30/17 17:47 Atypical Lymphocytes 2 % 08/30/17 17:47 Platelet Estimate ADEQUATE (NORMAL) 08/30/17 17:47 Smear Path Review Y 08/30/17 17:47 Sodium 128 mEq/L (136-145) L 08/30/17 17:47 Potassium 4.3 mEq/L (3.5-5.1) 08/30/17 17:47 Chloride 93 mEq/L (98-107) L 08/30/17 17:47 Carbon Dioxide 26.4 mEq/L (21.0-31.0) 08/30/17 17:47 Anion Gap 12.9 (7.0-16.0) 08/30/17 17:47 BUN 23 mg/dL (7-25) 08/30/17 17:47 Creatinine 0.9 mg/dL (0.6-1.2) 08/30/17 17:47 Est GFR ( Amer) > 60.0 ml/min (>90) 08/30/17 17:47 Est GFR (Non-Af Amer) > 60.0 ml/min 08/30/17 17:47 BUN/Creatinine Ratio 25.6 08/30/17 17:47 Glucose 89 mg/dL (70-105) 08/30/17 17:47 Hemoglobin A1c % 5.3 % (4.0-6.0) 08/30/17 17:47 Calcium 9.4 mg/dL (8.6-10.3) 08/30/17 17:47 Total Bilirubin 0.3 mg/dL (0.3-1.0) 08/30/17 17:47 AST 15 U/L (13-39) 08/30/17 17:47 ALT 7 U/L (7-52) 08/30/17 17:47 Alkaline Phosphatase 75 U/L (34-104) 08/30/17 17:47 Total Protein 6.7 gm/dL (6.0-8.3) 08/30/17 17:47 Albumin 3.9 gm/dL (3.7-5.3) 08/30/17 17:47 Globulin 2.8 gm/dL 08/30/17 17:47 Albumin/Globulin Ratio 1.4 (1.0-1.8) 08/30/17 17:47 Triglycerides 174 mg/dL (<150) H 08/30/17 17:47 Cholesterol 231 mg/dL (<200) H 08/30/17 17:47 LDL Cholesterol Direct 170 mg/dL (75-193) 08/30/17 17:47 HDL Cholesterol 61 mg/dL (23-92) 08/30/17 17:47 TSH 3.26 uIU/ml (0.34-5.60) 08/30/17 17:47 Salicylates < 25.0 mg/L (30.0-100.0) L 08/30/17 17:47 Acetaminophen < 10.0 ug/mL (10.0-30.0) L 08/30/17 17:47 Valproic Acid 94.3 ug/mL (50.0-100.0) 09/06/17 12:00 Ethyl Alcohol < 10 mg/dL (0-10) 08/30/17 17:47 RPR NONREACTIVE (NONREACTIVE) 08/30/17 17:47 - Physical Exam Vitals and I&O: Vital Signs Temp 97.4 F 09/17/17 06:37 Pulse 67 09/17/17 10:16 Resp 18 09/17/17 06:37 BP 113/64 09/17/17 10:13 Pulse Ox 97 09/17/17 06:37 Intake & Output 09/16/17 09/17/17 09/17/17 18:59 06:59 18:59 Intake Total 1600 120 Balance 1600 120 Intake: Oral 1600 120 Other: # Voids 3 3 # Bowel Movements 0 Active Medications: Current Medications Acetaminophen (Tylenol) 650 mg PO BID [facility] Stop: 10/30/17 08:59 Last Admin: 09/17/17 10:14 Dose: 650 mg Atorvastatin Calcium (Lipitor) 20 mg PO DAILY DIRK PRN Reason: Protocol Stop: 10/30/17 08:59 Last Admin: 09/17/17 10:14 Dose: 20 mg Bisacodyl (Dulcolax 10 Mg Supp) 10 mg RC Q24H PRN PRN Reason: IF NO BM IN THREE DAYS Stop: 10/29/17 21:21 Docusate Sodium (Colace) 250 mg PO BID [facility] Stop: 10/30/17 08:59 Last Admin: 09/17/17 10:12 Dose: 250 mg Furosemide (Lasix) 20 mg PO BID [facility] Stop: 10/30/17 08:59 Last Admin: 09/17/17 10:13 Dose: 20 mg Lactulose (Cephulac) 30 gm PO HS [facility] Stop: 10/29/17 21:29 Last Admin: 09/16/17 20:32 Dose: 30 gm Levothyroxine Sodium (Synthroid) 0.112 mg PO QDAC [facility] Stop: 10/30/17 07:29 Last Admin: 09/17/17 07:07 Dose: 0.112 mg Lorazepam (Ativan) 0.5 mg PO Q4HR PRN; Protocol PRN Reason: Anxiety Stop: 09/29/17 22:16 Magnesium Hydroxide (Milk Of Magnesia) 30 ml PO Q72H PRN PRN Reason: FOR NO BM IN THREE DAYS Stop: 10/29/17 21:21 Quetiapine Fumarate (Seroquel) 400 mg PO BID [facility] Stop: 11/15/17 12:19 Last Admin: 09/17/17 10:10 Dose: 400 mg Sodium Phosphate (Fleet Enema) 118 ml RC PRN PRN PRN Reason: IF BYSACODYL INEFFECTIVE Stop: 10/29/17 21:21 Valproate Sodium (Depakene) 1,000 mg PO BID [facility] Stop: 10/30/17 08:59 Last Admin: 09/16/17 18:03 Dose: 1,000 mg Zolpidem Tartrate (Ambien) 5 mg PO HS PRN PRN Reason: Insomnia Stop: 10/29/17 22:16 General: alert HEENT: NC/AT, PERRLA Neck: Supple Lungs: CTAB Cardiovascular: RRR, Normal S1, Normal S2, without murmur Abdomen: soft, non-tender, non-distended, positive bowel sound Internal Medicine Assmt/Plan - Assessment Assessment: htn dyslipidemia pud gerd arthritis schizophrenia bipolar - Plan Plan: monitor bp low fat diet will continue to follow patient continue current plan of care Nutritional Asmnt/Malnutr-PDOC - Dietary Evaluation Malnutrition Findings (Please click <Entered> for more info): Nutritional Asmnt/Malnutrition Start: 09/04/17 10: 54 Text: Status: Complete Freq: Document 09/04/17 10:54 KHUSHBU (Rec: 09/04/17 10:59 KHUSHBU DELROY- [email or web address]) Nutritional Asmnt/Malnutrition Patient General Information Diagnosis Psychosis Pertinent Medical Hx/Surgical Hx HTN, dyslipidemia, PUD, GERD Subjective Information PT asleep at time of visit Current Diet Order/ Nutrition Support low sodium Pertinent Medications lipitor, bisacodyl, colace, lasix, lactulose, synthroid, MOM, megace, fleet enema Pertinent Labs 08/30: Na 128, K 4.3, Cl 93, CO2 26.4, BUN 23, Cr 0.9, Ca 9 .4, glucose 89 Nutritional Hx/Data Height 5 ft 8 in Height (Calculated Centimeters) 172.7 Current Weight (lbs) 225 lb Weight (Calculated Kilograms) 102.1 Weight (Calculated Grams) 098325.3 Body Mass Index (BMI) 34.2 Recent Weight Change No Weight Status Obese GI Symptoms GI Symptoms None Last BM 09/02 x 1 Difficult in: None Cultural/Ethnic/Religion Belief unknown Usual diet at home unknown Skin Integrity/Comment: vinh score 17 Estimated Nutritional Goals BEE in Kcals: Adj wt of IBW Calories/Kcals/Kg 25-30kcals/kg Kcals Calculated 1825-2190kcals/day Protein: Adj wt of IBW Protein g/k-1.2g/kg Protein Calculated 7388g/day Fluid: ml 1825-2190ml/day (1ml/kcal) Nutritional Problem 1. Problem Problem No nutrition diagnosis at this time Intervention/Recommendation Comments Recommend continuing Mechanical soft diet Expected Outcomes/Goals Expected Outcomes/Goals PO intake >75%
[2017-09-17] MEDS: Lactulose 10 Gm/15 mL 30mL UDC PO SCH (20:36)
--- NOTE | 2017-09-17 20:51 | Progress Notes ---
DATE: 09/17/2017 Case was discussed with staff of the patient, reviewed records. The patient continues to be unpredictable, impulsive, needing redirection. Continues to have poor insight. Continues to be unable to make safe plan for self-care, delusional when I talked to her. I did increase her Seroquel yesterday; however, for the current psychosis, continue to be sedative, may have to give her most of the dose at bedtime and will continue. The patient reports that she does not know her current medication and also that she did get the flu vaccine. She has been on atorvastatin 20 mg daily, Dulcolax 10 mg daily as needed, clonidine 0.1 mg every 4 hours as needed for blood pressure and 0.1 mg twice a day and Colace 250 mg twice a day. She is also on Lasix 20 mg twice a day and lactulose 30 grams at bedtime, levothyroxine 0.112 mg every other day and Ativan 0.5 mg every 4 hours as needed, magnesium 30 mL p.o. every 72 hours as needed, multivitamin 1 tablet daily, Seroquel 400 mg twice a day, Depakote 1000 mg twice a day, Ambien 5 mg at bedtime as needed. The patient will get the flu vaccine. She reports she has a licensed clinical social worker that makes decisions for her and as the patient seems to be unable to make decisions for herself. She was over 67. I will continue to work with the patient in group therapy, milieu therapy, and adjust medication as needed. JOB# [id number]
[2017-09-18] MEDS: Levothyroxine 0.112 Mg Tab PO SCH (06:41)
--- NOTE | 2017-09-18 08:53 | Progress Notes ---
DATE: 09/18/2017 SUBJECTIVE: The patient is currently in the hospital, psychotic, aggressive behaviors, not the best historian. 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 Dr. Talavera has been seeing the patient over the past few days, noting that she remains easily agitated, confused at times, still symptomatic, impulsive, and unpredictable, paranoid. ASSESSMENT: The patient remains symptomatic, not safe for discharge, not safe for lower level of care given her ongoing symptoms and delusions. MEDICATIONS: Reviewed including doses and frequencies. PLAN: We will continue to monitor and follow up. Given her ongoing symptoms, she is not safe for discharge. JOB# [id number]
[2017-09-18] MEDS: Multivitamin w/ Minerals Tab PO SCH (08:56)
[2017-09-18] MEDS: Atorvastatin Calcium 10 MG TAB PO SCH (08:57)
--- NOTE | 2017-09-18 12:19 | Internal Medicine Prog Note ---
Internal Medicine Subjective - Subjective Service Date: 09/18/17 (patient noted with productive cough and green phlegm) Patient is:: awake, verbal, interactive Patient Complaints of:: congestion Per staff patient has:: no adverse event, eating well, noncompliant, tolerating meds Internal Medicine Objective - Results Result Diagrams: 08/30/17 17:47 08/30/17 17:47 Recent Labs: Laboratory Last Values WBC 7.7 Th/cmm (4.8-10.8) 08/30/17 17:47 RBC 4.62 Mil/cmm (3.80-5.20) 08/30/17 17:47 Hgb 14.4 gm/dL (12-16) 08/30/17 17:47 Hct 43.4 % (41.0-60) 08/30/17 17:47 MCV 93.9 fl (81-100) 08/30/17 17:47 MCH 31.2 pg (27.0-31.0) H 08/30/17 17:47 MCHC Differential 33.2 pg (28.0-36.0) 08/30/17 17:47 RDW 13.7 % (11.5-20.0) 08/30/17 17:47 Plt Count 161 Th/cmm (150-400) 08/30/17 17:47 MPV 8.4 fl 08/30/17 17:47 Neutrophils (Manual) 28 % (40-80) L 08/30/17 17:47 Lymphocytes 60 % (20-50) H 08/30/17 17:47 Monocytes 8 % (2-10) 08/30/17 17:47 Eosinophils 2 % (0-5) 08/30/17 17:47 Atypical Lymphocytes 2 % 08/30/17 17:47 Platelet Estimate ADEQUATE (NORMAL) 08/30/17 17:47 Smear Path Review Y 08/30/17 17:47 Sodium 128 mEq/L (136-145) L 08/30/17 17:47 Potassium 4.3 mEq/L (3.5-5.1) 08/30/17 17:47 Chloride 93 mEq/L (98-107) L 08/30/17 17:47 Carbon Dioxide 26.4 mEq/L (21.0-31.0) 08/30/17 17:47 Anion Gap 12.9 (7.0-16.0) 08/30/17 17:47 BUN 23 mg/dL (7-25) 08/30/17 17:47 Creatinine 0.9 mg/dL (0.6-1.2) 08/30/17 17:47 Est GFR ( Amer) > 60.0 ml/min (>90) 08/30/17 17:47 Est GFR (Non-Af Amer) > 60.0 ml/min 08/30/17 17:47 BUN/Creatinine Ratio 25.6 08/30/17 17:47 Glucose 89 mg/dL (70-105) 08/30/17 17:47 Hemoglobin A1c % 5.3 % (4.0-6.0) 08/30/17 17:47 Calcium 9.4 mg/dL (8.6-10.3) 08/30/17 17:47 Total Bilirubin 0.3 mg/dL (0.3-1.0) 08/30/17 17:47 AST 15 U/L (13-39) 08/30/17 17:47 ALT 7 U/L (7-52) 08/30/17 17:47 Alkaline Phosphatase 75 U/L (34-104) 08/30/17 17:47 Total Protein 6.7 gm/dL (6.0-8.3) 08/30/17 17:47 Albumin 3.9 gm/dL (3.7-5.3) 08/30/17 17:47 Globulin 2.8 gm/dL 08/30/17 17:47 Albumin/Globulin Ratio 1.4 (1.0-1.8) 08/30/17 17:47 Triglycerides 174 mg/dL (<150) H 08/30/17 17:47 Cholesterol 231 mg/dL (<200) H 08/30/17 17:47 LDL Cholesterol Direct 170 mg/dL (75-193) 08/30/17 17:47 HDL Cholesterol 61 mg/dL (23-92) 08/30/17 17:47 TSH 3.26 uIU/ml (0.34-5.60) 08/30/17 17:47 Salicylates < 25.0 mg/L (30.0-100.0) L 08/30/17 17:47 Acetaminophen < 10.0 ug/mL (10.0-30.0) L 08/30/17 17:47 Valproic Acid 94.3 ug/mL (50.0-100.0) 09/06/17 12:00 Ethyl Alcohol < 10 mg/dL (0-10) 08/30/17 17:47 RPR NONREACTIVE (NONREACTIVE) 08/30/17 17:47 - Physical Exam Vitals and I&O: Vital Signs Temp 98.0 F 09/18/17 06:25 Pulse 91 09/18/17 08:57 Resp 19 09/18/17 06:25 BP 114/69 09/18/17 08:57 Pulse Ox 96 09/18/17 06:25 Intake & Output 09/17/17 09/18/17 09/18/17 18:59 06:59 18:59 Intake Total 300 Balance 300 Intake: Oral 300 Other: # Voids 2 # Bowel Movements 0 Stool Characteristics Soft Active Medications: Current Medications Acetaminophen (Tylenol) 650 mg PO BID [facility] Stop: 10/30/17 08:59 Last Admin: 09/18/17 08:58 Dose: Not Given Atorvastatin Calcium (Lipitor) 20 mg PO DAILY [facility] PRN Reason: Protocol Stop: 10/30/17 08:59 Last Admin: 09/18/17 08:57 Dose: 20 mg Bisacodyl (Dulcolax 10 Mg Supp) 10 mg RC Q24H PRN PRN Reason: IF NO BM IN THREE DAYS Stop: 10/29/17 21:21 Docusate Sodium (Colace) 250 mg PO BID [facility] Stop: 10/30/17 08:59 Last Admin: 09/18/17 08:56 Dose: 250 mg Furosemide (Lasix) 20 mg PO BID [facility] Stop: 10/30/17 08:59 Last Admin: 09/18/17 08:57 Dose: 20 mg Lactulose (Cephulac) 30 gm PO HS [facility] Stop: 10/29/17 21:29 Last Admin: 09/17/17 20:36 Dose: 30 gm Levothyroxine Sodium (Synthroid) 0.112 mg PO QDAC [facility] Stop: 10/30/17 07:29 Last Admin: 09/18/17 06:41 Dose: 0.112 mg Lorazepam (Ativan) 0.5 mg PO Q4HR PRN; Protocol PRN Reason: Anxiety Stop: 01/03/18 22:16 Magnesium Hydroxide (Milk Of Magnesia) 30 ml PO Q72H PRN PRN Reason: FOR NO BM IN THREE DAYS Stop: 10/29/17 21:21 Quetiapine Fumarate (Seroquel) 400 mg PO BID [facility] Stop: 11/15/17 12:19 Last Admin: 09/18/17 08:56 Dose: 400 mg Sodium Phosphate (Fleet Enema) 118 ml RC PRN PRN PRN Reason: IF BYSACODYL INEFFECTIVE Stop: 10/29/17 21:21 Valproate Sodium (Depakene) 1,000 mg PO BID [facility] Stop: 10/30/17 08:59 Last Admin: 09/18/17 08:55 Dose: 1,000 mg Zolpidem Tartrate (Ambien) 5 mg PO HS PRN PRN Reason: Insomnia Stop: 10/29/17 22:16 General: alert HEENT: NC/AT, PERRLA Neck: Supple Lungs: CTAB Cardiovascular: RRR, Normal S1, Normal S2, without murmur Abdomen: soft, non-tender, non-distended, positive bowel sound Internal Medicine Assmt/Plan - Assessment Assessment: htn dyslipidemia pud gerd arthritis schizophrenia bipolar - Plan Plan: chest xray today add levaquin 500 po daily x 7days cbc/bmp in am monitor bp low fat diet will continue to follow patient continue current plan of care Nutritional Asmnt/Malnutr-PDOC - Dietary Evaluation Malnutrition Findings (Please click <Entered> for more info): Nutritional Asmnt/Malnutrition Start: 09/04/17 10: 54 Text: Status: Complete Freq: Document 09/04/17 10:54 KHUSHBU (Rec: 09/04/17 10:59 KHUSHBU POTTS [email or web address]) Nutritional Asmnt/Malnutrition Patient General Information Diagnosis Psychosis Pertinent Medical Hx/Surgical Hx HTN, dyslipidemia, PUD, GERD Subjective Information PT asleep at time of visit Current Diet Order/ Nutrition Support low sodium Pertinent Medications lipitor, bisacodyl, colace, lasix, lactulose, synthroid, MOM, megace, fleet enema Pertinent Labs 08/30: Na 128, K 4.3, Cl 93, CO2 26.4, BUN 23, Cr 0.9, Ca 9 .4, glucose 89 Nutritional Hx/Data Height 5 ft 8 in Height (Calculated Centimeters) 172.7 Current Weight (lbs) 225 lb Weight (Calculated Kilograms) 102.1 Weight (Calculated Grams) 948712.3 Body Mass Index (BMI) 34.2 Recent Weight Change No Weight Status Obese GI Symptoms GI Symptoms None Last BM 09/02 x 1 Difficult in: None Cultural/Ethnic/Zoroastrian Belief unknown Usual diet at home unknown Skin Integrity/Comment: vinh score 17 Estimated Nutritional Goals BEE in Kcals: Adj wt of IBW Calories/Kcals/Kg 25-30kcals/kg Kcals Calculated 1825-2190kcals/day Protein: Adj wt of IBW Protein g/k-1.2g/kg Protein Calculated 7388g/day Fluid: ml 1825-2190ml/day (1ml/kcal) Nutritional Problem 1. Problem Problem No nutrition diagnosis at this time Intervention/Recommendation Comments Recommend continuing Mechanical soft diet Expected Outcomes/Goals Expected Outcomes/Goals PO intake >75%
[2017-09-18] MEDS: Lactulose 10 Gm/15 mL 30mL UDC PO SCH (21:01)
[2017-09-19] MEDS: Levothyroxine 0.112 Mg Tab PO SCH (06:49)
[2017-09-19 07:51] LABS: % BASOPHILS 1.1 % (0.0-2.0); % EOSINOPHILS 0.8 % (0.0-5.0); % LYMPHOCYTES 40.7 % (20.0-50.0); % MONOCYTES 7.6 % (2.0-10.0); % NEUTROPHILS 49.8 % (40.0-80.0); BASOPHILE ABSOLUTE 0.1 Th/cumm (0-0.2); EOSINOPHILE ABSOLUTE 0.1 Th/cmm (0.1-0.4); HEMOGLOBIN 12.7 gm/dL (12-16); LYMPHOCYTE ABSOLUTE 3.1 Th/cmm (1.5-3.0); MEAN CELL VOLUME 93.9 fl (81-100); MEAN CORPUSCULAR HGB CONC 34.1 pg (28.0-36.0); MEAN PLATELET VOLUME 7.7 fl; MONOCYTE ABSOLUTE 0.6 Th/cmm (0.3-1.0); NEUTROPHILE ABSOLUTE 3.8 Th/cmm (1.8-8.0); PLATELET COUNT 186 Th/cmm (150-400); RED BLOOD COUNT 3.98 Mil/cmm (3.80-5.20); RED CELL DISTRIBUTION WIDTH 14.4 % (11.5-20.0); WHITE BLOOD COUNT 7.7 Th/cmm (4.8-10.8)
[2017-09-19 07:52] LABS: HEMATOCRIT 37.3 % (41.0-60)
[2017-09-19 08:03] LABS: ANION GAP 9.2 (7.0-16.0); BUN - UREA NITROGEN 17 mg/dL (7-25); CALCIUM SERUM 8.7 mg/dL (8.6-10.3); CARBON DIOXIDE 28.1 mEq/L (21.0-31.0); CHLORIDE 101 mEq/L (98-107); CREATININE - SERUM 0.7 mg/dL (0.6-1.2); GFR AFRICAN-AMERICAN > 60.0 ml/min (>90); GFR NON AFRICAN-AMERICAN > 60.0 ml/min; GLUCOSE 87 mg/dL (70-105); POTASSIUM SERUM 4.3 mEq/L (3.5-5.1); SODIUM SERUM 134 mEq/L (136-145)
[2017-09-19] MEDS: Multivitamin w/ Minerals Tab PO SCH (08:36)
[2017-09-19] MEDS: Atorvastatin Calcium 10 MG TAB PO SCH (08:37)
--- NOTE | 2017-09-19 09:24 | Diagnostic Imaging Report ---
Portable chest x-ray Time: 0813 hours History: : Cough Allowing for portable technique the heart size is normal. No focal pulmonary parenchymal processes. No hilar or mediastinal abnormalities. Impression: No acute abnormalities.
--- NOTE | 2017-09-19 09:30 | Progress Notes ---
DATE: 09/19/2017 SUBJECTIVE: The patient was seen 09/19/2017, brought into the hospital due to psychosis, aggressive behaviors, broken kneecap, and visual problems. 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 Still agitated, confused at times, it is unclear if this is her current baseline. 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 Appetite fairly well. Eating with prompting. Medications are reviewed. No side effects noted. No EPS. No over sedation. ASSESSMENT: The patient remains symptomatic, not safe for discharge. Still with ongoing symptoms and delusions. PLAN: We will continue to monitor. The patient is not safe for a lower level of care. [facility]# [id number]
--- NOTE | 2017-09-19 14:09 | Internal Medicine Prog Note ---
Internal Medicine Subjective - Subjective Service Date: 09/19/17 Patient is:: awake, verbal, interactive Patient Complaints of:: congestion Per staff patient has:: no adverse event, eating well, noncompliant, tolerating meds Internal Medicine Objective - Results Result Diagrams: 09/19/17 07:30 09/19/17 07:30 Recent Labs: Laboratory Last Values WBC 7.7 Th/cmm (4.8-10.8) 09/19/17 07:30 RBC 3.98 Mil/cmm (3.80-5.20) 09/19/17 07:30 Hgb 12.7 gm/dL (12-16) 09/19/17 07:30 Hct 37.3 % (41.0-60) L D 09/19/17 07:30 MCV 93.9 fl (81-100) 09/19/17 07:30 MCH 32.0 pg (27.0-31.0) H 09/19/17 07:30 MCHC Differential 34.1 pg (28.0-36.0) 09/19/17 07:30 RDW 14.4 % (11.5-20.0) 09/19/17 07:30 Plt Count 186 Th/cmm (150-400) 09/19/17 07:30 MPV 7.7 fl 09/19/17 07:30 Neutrophils % 49.8 % (40.0-80.0) 09/19/17 07:30 Lymphocytes % 40.7 % (20.0-50.0) 09/19/17 07:30 Monocytes % 7.6 % (2.0-10.0) 09/19/17 07:30 Eosinophils % 0.8 % (0.0-5.0) 09/19/17 07:30 Basophils % 1.1 % (0.0-2.0) 09/19/17 07:30 Neutrophils (Manual) 28 % (40-80) L 08/30/17 17:47 Lymphocytes 60 % (20-50) H 08/30/17 17:47 Monocytes 8 % (2-10) 08/30/17 17:47 Eosinophils 2 % (0-5) 08/30/17 17:47 Atypical Lymphocytes 2 % 08/30/17 17:47 Platelet Estimate ADEQUATE (NORMAL) 08/30/17 17:47 Smear Path Review Y 08/30/17 17:47 Sodium 134 mEq/L (136-145) L 09/19/17 07:30 Potassium 4.3 mEq/L (3.5-5.1) 09/19/17 07:30 Chloride 101 mEq/L (98-107) 09/19/17 07:30 Carbon Dioxide 28.1 mEq/L (21.0-31.0) 09/19/17 07:30 Anion Gap 9.2 (7.0-16.0) 09/19/17 07:30 BUN 17 mg/dL (7-25) 09/19/17 07:30 Creatinine 0.7 mg/dL (0.6-1.2) 09/19/17 07:30 Est GFR ( Amer) > 60.0 ml/min (>90) 09/19/17 07:30 Est GFR (Non-Af Amer) > 60.0 ml/min 09/19/17 07:30 BUN/Creatinine Ratio 24.3 09/19/17 07:30 Glucose 87 mg/dL (70-105) 09/19/17 07:30 Hemoglobin A1c % 5.3 % (4.0-6.0) 08/30/17 17:47 Calcium 8.7 mg/dL (8.6-10.3) 09/19/17 07:30 Total Bilirubin 0.3 mg/dL (0.3-1.0) 08/30/17 17:47 AST 15 U/L (13-39) 08/30/17 17:47 ALT 7 U/L (7-52) 08/30/17 17:47 Alkaline Phosphatase 75 U/L (34-104) 08/30/17 17:47 Total Protein 6.7 gm/dL (6.0-8.3) 08/30/17 17:47 Albumin 3.9 gm/dL (3.7-5.3) 08/30/17 17:47 Globulin 2.8 gm/dL 08/30/17 17:47 Albumin/Globulin Ratio 1.4 (1.0-1.8) 08/30/17 17:47 Triglycerides 174 mg/dL (<150) H 08/30/17 17:47 Cholesterol 231 mg/dL (<200) H 08/30/17 17:47 LDL Cholesterol Direct 170 mg/dL (75-193) 08/30/17 17:47 HDL Cholesterol 61 mg/dL (23-92) 08/30/17 17:47 TSH 3.26 uIU/ml (0.34-5.60) 08/30/17 17:47 Salicylates < 25.0 mg/L (30.0-100.0) L 08/30/17 17:47 Acetaminophen < 10.0 ug/mL (10.0-30.0) L 08/30/17 17:47 Valproic Acid 94.3 ug/mL (50.0-100.0) 09/06/17 12:00 Ethyl Alcohol < 10 mg/dL (0-10) 08/30/17 17:47 RPR NONREACTIVE (NONREACTIVE) 08/30/17 17:47 - Physical Exam Vitals and I&O: Vital Signs Temp 97.9 F 09/19/17 06:30 Pulse 79 09/19/17 09:36 Resp 20 09/19/17 06:30 BP 111/67 09/19/17 09:36 Pulse Ox 97 09/19/17 06:30 Intake & Output 09/18/17 09/19/17 09/19/17 18:59 06:59 18:59 Intake Total 1000 480 Balance 1000 480 Intake: Oral 1000 480 Other: # Voids 5 2 # Bowel Movements 2 Stool Characteristics Soft Soft Active Medications: Current Medications Acetaminophen (Tylenol) 650 mg PO BID [facility] Stop: 10/30/17 08:59 Last Admin: 09/19/17 08:35 Dose: 650 mg Atorvastatin Calcium (Lipitor) 20 mg PO DAILY [facility] PRN Reason: Protocol Stop: 10/30/17 08:59 Last Admin: 09/19/17 08:37 Dose: 20 mg Bisacodyl (Dulcolax 10 Mg Supp) 10 mg RC Q24H PRN PRN Reason: IF NO BM IN THREE DAYS Stop: 10/29/17 21:21 Docusate Sodium (Colace) 250 mg PO BID [facility] Stop: 10/30/17 08:59 Last Admin: 09/19/17 08:35 Dose: 250 mg Furosemide (Lasix) 20 mg PO BID [facility] Stop: 10/30/17 08:59 Last Admin: 09/19/17 08:36 Dose: 20 mg Lactulose (Cephulac) 30 gm PO HS [facility] Stop: 10/29/17 21:29 Last Admin: 09/18/17 21:01 Dose: 30 gm Levothyroxine Sodium (Synthroid) 0.112 mg PO QDAC [facility] Stop: 10/30/17 07:29 Last Admin: 09/19/17 06:49 Dose: 0.112 mg Lorazepam (Ativan) 0.5 mg PO Q4HR PRN; Protocol PRN Reason: Anxiety Stop: 09/29/17 22:16 Magnesium Hydroxide (Milk Of Magnesia) 30 ml PO Q72H PRN PRN Reason: FOR NO BM IN THREE DAYS Stop: 10/29/17 21:21 Quetiapine Fumarate (Seroquel) 400 mg PO BID [facility] Stop: 11/15/17 12:19 Last Admin: 09/19/17 08:35 Dose: 400 mg Sodium Phosphate (Fleet Enema) 118 ml RC PRN PRN PRN Reason: IF BYSACODYL INEFFECTIVE Stop: 10/29/17 21:21 Valproate Sodium (Depakene) 1,000 mg PO BID [facility] Stop: 10/30/17 08:59 Last Admin: 09/19/17 08:37 Dose: 1,000 mg Zolpidem Tartrate (Ambien) 5 mg PO HS PRN PRN Reason: Insomnia Stop: 10/29/17 22:16 General: alert HEENT: NC/AT, PERRLA Neck: Supple Lungs: CTAB Cardiovascular: RRR, Normal S1, Normal S2, without murmur Abdomen: soft, non-tender, non-distended, positive bowel sound Internal Medicine Assmt/Plan - Assessment Assessment: htn dyslipidemia pud gerd arthritis schizophrenia bipolar - Plan Plan: chest xray today add levaquin 500 po daily x 7days cbc/bmp in am monitor bp low fat diet will continue to follow patient continue current plan of care Nutritional Asmnt/Malnutr-PDOC - Dietary Evaluation Malnutrition Findings (Please click <Entered> for more info): Nutritional Asmnt/Malnutrition Start: 09/04/17 10: 54 Text: Status: Complete Freq: Document 09/04/17 10:54 KHUSHBU (Rec: 09/04/17 10:59 KHUSHBU POTTS [email or web address]) Nutritional Asmnt/Malnutrition Patient General Information Diagnosis Psychosis Pertinent Medical Hx/Surgical Hx HTN, dyslipidemia, PUD, GERD Subjective Information PT asleep at time of visit Current Diet Order/ Nutrition Support low sodium Pertinent Medications lipitor, bisacodyl, colace, lasix, lactulose, synthroid, MOM, megace, fleet enema Pertinent Labs 08/30: Na 128, K 4.3, Cl 93, CO2 26.4, BUN 23, Cr 0.9, Ca 9 .4, glucose 89 Nutritional Hx/Data Height 5 ft 8 in Height (Calculated Centimeters) 172.7 Current Weight (lbs) 225 lb Weight (Calculated Kilograms) 102.1 Weight (Calculated Grams) 872536.3 Body Mass Index (BMI) 34.2 Recent Weight Change No Weight Status Obese GI Symptoms GI Symptoms None Last BM 09/02 x 1 Difficult in: None Cultural/Ethnic/Jew Belief unknown Usual diet at home unknown Skin Integrity/Comment: vinh score 17 Estimated Nutritional Goals BEE in Kcals: Adj wt of IBW Calories/Kcals/Kg 25-30kcals/kg Kcals Calculated 1825-2190kcals/day Protein: Adj wt of IBW Protein g/k-1.2g/kg Protein Calculated 7388g/day Fluid: ml 1825-2190ml/day (1ml/kcal) Nutritional Problem 1. Problem Problem No nutrition diagnosis at this time Intervention/Recommendation Comments Recommend continuing Mechanical soft diet Expected Outcomes/Goals Expected Outcomes/Goals PO intake >75%
[2017-09-19] MEDS: Lactulose 10 Gm/15 mL 30mL UDC PO SCH (21:20)
[2017-09-20] MEDS: Levothyroxine 0.112 Mg Tab PO SCH (08:15)
[2017-09-20] MEDS: Multivitamin w/ Minerals Tab PO SCH (08:39)
--- NOTE | 2017-09-20 11:43 | Internal Medicine Prog Note ---
Internal Medicine Subjective - Subjective Service Date: 09/20/17 Patient is:: awake, verbal, interactive Patient Complaints of:: cough Per staff patient has:: no adverse event, eating well, noncompliant, tolerating meds Internal Medicine Objective - Results Result Diagrams: 09/19/17 07:30 09/19/17 07:30 Recent Labs: Laboratory Last Values WBC 7.7 Th/cmm (4.8-10.8) 09/19/17 07:30 RBC 3.98 Mil/cmm (3.80-5.20) 09/19/17 07:30 Hgb 12.7 gm/dL (12-16) 09/19/17 07:30 Hct 37.3 % (41.0-60) L D 09/19/17 07:30 MCV 93.9 fl (81-100) 09/19/17 07:30 MCH 32.0 pg (27.0-31.0) H 09/19/17 07:30 MCHC Differential 34.1 pg (28.0-36.0) 09/19/17 07:30 RDW 14.4 % (11.5-20.0) 09/19/17 07:30 Plt Count 186 Th/cmm (150-400) 09/19/17 07:30 MPV 7.7 fl 09/19/17 07:30 Neutrophils % 49.8 % (40.0-80.0) 09/19/17 07:30 Lymphocytes % 40.7 % (20.0-50.0) 09/19/17 07:30 Monocytes % 7.6 % (2.0-10.0) 09/19/17 07:30 Eosinophils % 0.8 % (0.0-5.0) 09/19/17 07:30 Basophils % 1.1 % (0.0-2.0) 09/19/17 07:30 Neutrophils (Manual) 28 % (40-80) L 08/30/17 17:47 Lymphocytes 60 % (20-50) H 08/30/17 17:47 Monocytes 8 % (2-10) 08/30/17 17:47 Eosinophils 2 % (0-5) 08/30/17 17:47 Atypical Lymphocytes 2 % 08/30/17 17:47 Platelet Estimate ADEQUATE (NORMAL) 08/30/17 17:47 Smear Path Review Y 08/30/17 17:47 Sodium 134 mEq/L (136-145) L 09/19/17 07:30 Potassium 4.3 mEq/L (3.5-5.1) 09/19/17 07:30 Chloride 101 mEq/L (98-107) 09/19/17 07:30 Carbon Dioxide 28.1 mEq/L (21.0-31.0) 09/19/17 07:30 Anion Gap 9.2 (7.0-16.0) 09/19/17 07:30 BUN 17 mg/dL (7-25) 09/19/17 07:30 Creatinine 0.7 mg/dL (0.6-1.2) 09/19/17 07:30 Est GFR ( Amer) > 60.0 ml/min (>90) 09/19/17 07:30 Est GFR (Non-Af Amer) > 60.0 ml/min 09/19/17 07:30 BUN/Creatinine Ratio 24.3 09/19/17 07:30 Glucose 87 mg/dL (70-105) 09/19/17 07:30 Hemoglobin A1c % 5.3 % (4.0-6.0) 08/30/17 17:47 Calcium 8.7 mg/dL (8.6-10.3) 09/19/17 07:30 Total Bilirubin 0.3 mg/dL (0.3-1.0) 08/30/17 17:47 AST 15 U/L (13-39) 08/30/17 17:47 ALT 7 U/L (7-52) 08/30/17 17:47 Alkaline Phosphatase 75 U/L (34-104) 08/30/17 17:47 Total Protein 6.7 gm/dL (6.0-8.3) 08/30/17 17:47 Albumin 3.9 gm/dL (3.7-5.3) 08/30/17 17:47 Globulin 2.8 gm/dL 08/30/17 17:47 Albumin/Globulin Ratio 1.4 (1.0-1.8) 08/30/17 17:47 Triglycerides 174 mg/dL (<150) H 08/30/17 17:47 Cholesterol 231 mg/dL (<200) H 08/30/17 17:47 LDL Cholesterol Direct 170 mg/dL (75-193) 08/30/17 17:47 HDL Cholesterol 61 mg/dL (23-92) 08/30/17 17:47 TSH 3.26 uIU/ml (0.34-5.60) 08/30/17 17:47 Salicylates < 25.0 mg/L (30.0-100.0) L 08/30/17 17:47 Acetaminophen < 10.0 ug/mL (10.0-30.0) L 08/30/17 17:47 Valproic Acid 94.3 ug/mL (50.0-100.0) 09/06/17 12:00 Ethyl Alcohol < 10 mg/dL (0-10) 08/30/17 17:47 RPR NONREACTIVE (NONREACTIVE) 08/30/17 17:47 - Physical Exam Vitals and I&O: Vital Signs Temp 97.2 F 09/20/17 06:49 Pulse 78 09/20/17 08:40 Resp 19 09/20/17 06:49 BP 161/86 09/20/17 08:39 Pulse Ox 97 09/20/17 06:49 Intake & Output 09/19/17 09/20/17 09/20/17 18:59 06:59 18:59 Intake Total 1000 240 Balance 1000 240 Intake: Oral 1000 240 Other: # Voids 5 1 # Bowel Movements 2 Active Medications: Current Medications Acetaminophen (Tylenol) 650 mg PO BID [facility] Stop: 10/30/17 08:59 Last Admin: 09/20/17 08:41 Dose: 650 mg Atorvastatin Calcium (Lipitor) 20 mg PO DAILY [facility] PRN Reason: Protocol Stop: 10/30/17 08:59 Last Admin: 09/19/17 08:37 Dose: 20 mg Bisacodyl (Dulcolax 10 Mg Supp) 10 mg RC Q24H PRN PRN Reason: IF NO BM IN THREE DAYS Stop: 10/29/17 21:21 Docusate Sodium (Colace) 250 mg PO BID [facility] Stop: 10/30/17 08:59 Last Admin: 09/20/17 08:40 Dose: 250 mg Furosemide (Lasix) 20 mg PO BID [facility] Stop: 10/30/17 08:59 Last Admin: 09/20/17 08:39 Dose: 20 mg Lactulose (Cephulac) 30 gm PO HS [facility] Stop: 10/29/17 21:29 Last Admin: 09/19/17 21:20 Dose: 30 gm Levothyroxine Sodium (Synthroid) 0.112 mg PO QDAC [facility] Stop: 10/30/17 07:29 Last Admin: 09/20/17 08:15 Dose: 0.112 mg Lorazepam (Ativan) 0.5 mg PO Q4HR PRN; Protocol PRN Reason: Anxiety Stop: 09/29/17 22:16 Magnesium Hydroxide (Milk Of Magnesia) 30 ml PO Q72H PRN PRN Reason: FOR NO BM IN THREE DAYS Stop: 10/29/17 21:21 Quetiapine Fumarate (Seroquel) 400 mg PO BID [facility] Stop: 11/15/17 12:19 Last Admin: 09/20/17 08:40 Dose: 400 mg Sodium Phosphate (Fleet Enema) 118 ml RC PRN PRN PRN Reason: IF BYSACODYL INEFFECTIVE Stop: 10/29/17 21:21 Valproate Sodium (Depakene) 1,000 mg PO BID [facility] Stop: 10/30/17 08:59 Last Admin: 09/20/17 08:38 Dose: 1,000 mg Zolpidem Tartrate (Ambien) 5 mg PO HS PRN PRN Reason: Insomnia Stop: 10/29/17 22:16 General: alert HEENT: NC/AT, PERRLA Neck: Supple Lungs: CTAB Cardiovascular: RRR, Normal S1, Normal S2, without murmur Abdomen: soft, non-tender, non-distended, positive bowel sound Internal Medicine Assmt/Plan - Assessment Assessment: htn dyslipidemia pud gerd arthritis schizophrenia bipolar - Plan Plan: continue levaquin cbc/bmp in am monitor bp low fat diet will continue to follow patient continue current plan of care Nutritional Asmnt/Malnutr-PDOC - Dietary Evaluation Malnutrition Findings (Please click <Entered> for more info): Nutritional Asmnt/Malnutrition Start: 09/04/17 10: 54 Text: Status: Complete Freq: Document 09/04/17 10:54 KHUSHBU (Rec: 09/04/17 10:59 KHUSHBU DELROY- [email or web address]) Nutritional Asmnt/Malnutrition Patient General Information Diagnosis Psychosis Pertinent Medical Hx/Surgical Hx HTN, dyslipidemia, PUD, GERD Subjective Information PT asleep at time of visit Current Diet Order/ Nutrition Support low sodium Pertinent Medications lipitor, bisacodyl, colace, lasix, lactulose, synthroid, MOM, megace, fleet enema Pertinent Labs 08/30: Na 128, K 4.3, Cl 93, CO2 26.4, BUN 23, Cr 0.9, Ca 9 .4, glucose 89 Nutritional Hx/Data Height 5 ft 8 in Height (Calculated Centimeters) 172.7 Current Weight (lbs) 225 lb Weight (Calculated Kilograms) 102.1 Weight (Calculated Grams) 248791.3 Body Mass Index (BMI) 34.2 Recent Weight Change No Weight Status Obese GI Symptoms GI Symptoms None Last BM 09/02 x 1 Difficult in: None Cultural/Ethnic/Sabianist Belief unknown Usual diet at home unknown Skin Integrity/Comment: vinh score 17 Estimated Nutritional Goals BEE in Kcals: Adj wt of IBW Calories/Kcals/Kg 25-30kcals/kg Kcals Calculated 1825-2190kcals/day Protein: Adj wt of IBW Protein g/k-1.2g/kg Protein Calculated 7388g/day Fluid: ml 1825-2190ml/day (1ml/kcal) Nutritional Problem 1. Problem Problem No nutrition diagnosis at this time Intervention/Recommendation Comments Recommend continuing Mechanical soft diet Expected Outcomes/Goals Expected Outcomes/Goals PO intake >75%
[2017-09-20] MEDS: Atorvastatin Calcium 10 MG TAB PO SCH (11:58)
[2017-09-20] MEDS: Lactulose 10 Gm/15 mL 30mL UDC PO SCH (20:59)
--- NOTE | 2017-09-21 00:44 | Progress Notes ---
DATE: 09/20/2017 SUBJECTIVE: The patient was seen and evaluated. The patient's chart reviewed. Overnight, nursing staff reported the patient mostly been isolative, withdrawn. The patient was initially brought in here after presenting very aggressive and also psychotic and visual problems. On [id number] evaluation today, the patient is still perseverating about her kneecap being broken, although it has been multiple decades, very perseverative, disorganized, grandiose, and disengaged. MENTAL STATUS EXAMINATION: Perseverating, ruminating, disengaged. ASSESSMENT AND PLAN: The patient is a 67-year-old female who continues to present very easily agitated state, disorganized, ruminating, grandiose, impulsive, believing that she owns property in [place]. Due to the patient's still active symptomatic overwhelming emotion, she is unable to formulate safe plan outside the structured environment. We will continue primary psychiatrist treatment plan and goals, which include the following: Seroquel at 400 mg b.i.d., Depakote at 1000 mg b.i.d., with Depakote levels at 94.3 drawn on the 09/06/2017. JOB# [id number]
[2017-09-21] MEDS: Levothyroxine 0.112 Mg Tab PO SCH (06:44)
[2017-09-21] MEDS: Multivitamin w/ Minerals Tab PO SCH (09:01)
[2017-09-21] MEDS: Atorvastatin Calcium 10 MG TAB PO SCH (09:01)
--- NOTE | 2017-09-21 12:51 | Internal Medicine Prog Note ---
Internal Medicine Subjective - Subjective Service Date: 09/21/17 Patient is:: awake, verbal, interactive Patient Complaints of:: cough Per staff patient has:: no adverse event, eating well, noncompliant, tolerating meds Internal Medicine Objective - Results Result Diagrams: 09/19/17 07:30 09/19/17 07:30 Recent Labs: Laboratory Last Values WBC 7.7 Th/cmm (4.8-10.8) 09/19/17 07:30 RBC 3.98 Mil/cmm (3.80-5.20) 09/19/17 07:30 Hgb 12.7 gm/dL (12-16) 09/19/17 07:30 Hct 37.3 % (41.0-60) L D 09/19/17 07:30 MCV 93.9 fl (81-100) 09/19/17 07:30 MCH 32.0 pg (27.0-31.0) H 09/19/17 07:30 MCHC Differential 34.1 pg (28.0-36.0) 09/19/17 07:30 RDW 14.4 % (11.5-20.0) 09/19/17 07:30 Plt Count 186 Th/cmm (150-400) 09/19/17 07:30 MPV 7.7 fl 09/19/17 07:30 Neutrophils % 49.8 % (40.0-80.0) 09/19/17 07:30 Lymphocytes % 40.7 % (20.0-50.0) 09/19/17 07:30 Monocytes % 7.6 % (2.0-10.0) 09/19/17 07:30 Eosinophils % 0.8 % (0.0-5.0) 09/19/17 07:30 Basophils % 1.1 % (0.0-2.0) 09/19/17 07:30 Neutrophils (Manual) 28 % (40-80) L 08/30/17 17:47 Lymphocytes 60 % (20-50) H 08/30/17 17:47 Monocytes 8 % (2-10) 08/30/17 17:47 Eosinophils 2 % (0-5) 08/30/17 17:47 Atypical Lymphocytes 2 % 08/30/17 17:47 Platelet Estimate ADEQUATE (NORMAL) 08/30/17 17:47 Smear Path Review Y 08/30/17 17:47 Sodium 134 mEq/L (136-145) L 09/19/17 07:30 Potassium 4.3 mEq/L (3.5-5.1) 09/19/17 07:30 Chloride 101 mEq/L (98-107) 09/19/17 07:30 Carbon Dioxide 28.1 mEq/L (21.0-31.0) 09/19/17 07:30 Anion Gap 9.2 (7.0-16.0) 09/19/17 07:30 BUN 17 mg/dL (7-25) 09/19/17 07:30 Creatinine 0.7 mg/dL (0.6-1.2) 09/19/17 07:30 Est GFR ( Amer) > 60.0 ml/min (>90) 09/19/17 07:30 Est GFR (Non-Af Amer) > 60.0 ml/min 09/19/17 07:30 BUN/Creatinine Ratio 24.3 09/19/17 07:30 Glucose 87 mg/dL (70-105) 09/19/17 07:30 Hemoglobin A1c % 5.3 % (4.0-6.0) 08/30/17 17:47 Calcium 8.7 mg/dL (8.6-10.3) 09/19/17 07:30 Total Bilirubin 0.3 mg/dL (0.3-1.0) 08/30/17 17:47 AST 15 U/L (13-39) 08/30/17 17:47 ALT 7 U/L (7-52) 08/30/17 17:47 Alkaline Phosphatase 75 U/L (34-104) 08/30/17 17:47 Total Protein 6.7 gm/dL (6.0-8.3) 08/30/17 17:47 Albumin 3.9 gm/dL (3.7-5.3) 08/30/17 17:47 Globulin 2.8 gm/dL 08/30/17 17:47 Albumin/Globulin Ratio 1.4 (1.0-1.8) 08/30/17 17:47 Triglycerides 174 mg/dL (<150) H 08/30/17 17:47 Cholesterol 231 mg/dL (<200) H 08/30/17 17:47 LDL Cholesterol Direct 170 mg/dL (75-193) 08/30/17 17:47 HDL Cholesterol 61 mg/dL (23-92) 08/30/17 17:47 TSH 3.26 uIU/ml (0.34-5.60) 08/30/17 17:47 Salicylates < 25.0 mg/L (30.0-100.0) L 08/30/17 17:47 Acetaminophen < 10.0 ug/mL (10.0-30.0) L 08/30/17 17:47 Valproic Acid 94.3 ug/mL (50.0-100.0) 09/06/17 12:00 Ethyl Alcohol < 10 mg/dL (0-10) 08/30/17 17:47 RPR NONREACTIVE (NONREACTIVE) 08/30/17 17:47 - Physical Exam Vitals and I&O: Vital Signs Temp 98.2 F 09/21/17 06:15 Pulse 67 09/21/17 09:01 Resp 20 09/21/17 06:15 BP 126/64 09/21/17 09:02 Pulse Ox 95 09/21/17 06:15 Intake & Output 09/20/17 09/21/17 09/21/17 18:59 06:59 18:59 Intake Total 240 Balance 240 Intake: Oral 240 Other: # Voids 2 # Bowel Movements 1 Stool Characteristics Soft Formed Active Medications: Current Medications Acetaminophen (Tylenol) 650 mg PO BID [facility] Stop: 10/30/17 08:59 Last Admin: 09/21/17 09:01 Dose: 650 mg Atorvastatin Calcium (Lipitor) 20 mg PO DAILY [facility] PRN Reason: Protocol Stop: 10/30/17 08:59 Last Admin: 09/21/17 09:01 Dose: 20 mg Bisacodyl (Dulcolax 10 Mg Supp) 10 mg RC Q24H PRN PRN Reason: IF NO BM IN THREE DAYS Stop: 10/29/17 21:21 Docusate Sodium (Colace) 250 mg PO BID [facility] Stop: 10/30/17 08:59 Last Admin: 09/21/17 09:01 Dose: 250 mg Furosemide (Lasix) 20 mg PO BID [facility] Stop: 10/30/17 08:59 Last Admin: 09/21/17 09:02 Dose: 20 mg Lactulose (Cephulac) 30 gm PO HS [facility] Stop: 10/29/17 21:29 Last Admin: 09/20/17 20:59 Dose: 30 gm Levothyroxine Sodium (Synthroid) 0.112 mg PO QDAC [facility] Stop: 10/30/17 07:29 Last Admin: 09/21/17 06:44 Dose: 0.112 mg Lorazepam (Ativan) 0.5 mg PO Q4HR PRN; Protocol PRN Reason: Anxiety Stop: 09/29/17 22:16 Magnesium Hydroxide (Milk Of Magnesia) 30 ml PO Q72H PRN PRN Reason: FOR NO BM IN THREE DAYS Stop: 10/29/17 21:21 Quetiapine Fumarate (Seroquel) 400 mg PO BID [facility] Stop: 11/15/17 12:19 Last Admin: 09/21/17 09:03 Dose: 400 mg Sodium Phosphate (Fleet Enema) 118 ml RC PRN PRN PRN Reason: IF BYSACODYL INEFFECTIVE Stop: 10/29/17 21:21 Valproate Sodium (Depakene) 1,000 mg PO BID [facility] Stop: 10/30/17 08:59 Last Admin: 09/21/17 09:00 Dose: 1,000 mg Zolpidem Tartrate (Ambien) 5 mg PO HS PRN PRN Reason: Insomnia Stop: 10/29/17 22:16 General: alert HEENT: NC/AT, PERRLA Neck: Supple Lungs: CTAB Cardiovascular: RRR, Normal S1, Normal S2, without murmur Abdomen: soft, non-tender, non-distended, positive bowel sound Internal Medicine Assmt/Plan - Assessment Assessment: htn dyslipidemia pud gerd arthritis schizophrenia bipolar - Plan Plan: continue levaquin cbc/bmp in am monitor bp low fat diet will continue to follow patient continue current plan of care Nutritional Asmnt/Malnutr-PDOC - Dietary Evaluation Malnutrition Findings (Please click <Entered> for more info): Nutritional Asmnt/Malnutrition Start: 09/04/17 10: 54 Text: Status: Complete Freq: Document 09/04/17 10:54 KHUSHBU (Rec: 09/04/17 10:59 KHUSHBU DELROY- [email or web address]) Nutritional Asmnt/Malnutrition Patient General Information Diagnosis Psychosis Pertinent Medical Hx/Surgical Hx HTN, dyslipidemia, PUD, GERD Subjective Information PT asleep at time of visit Current Diet Order/ Nutrition Support low sodium Pertinent Medications lipitor, bisacodyl, colace, lasix, lactulose, synthroid, MOM, megace, fleet enema Pertinent Labs 08/30: Na 128, K 4.3, Cl 93, CO2 26.4, BUN 23, Cr 0.9, Ca 9 .4, glucose 89 Nutritional Hx/Data Height 5 ft 8 in Height (Calculated Centimeters) 172.7 Current Weight (lbs) 225 lb Weight (Calculated Kilograms) 102.1 Weight (Calculated Grams) 442444.3 Body Mass Index (BMI) 34.2 Recent Weight Change No Weight Status Obese GI Symptoms GI Symptoms None Last BM 09/02 x 1 Difficult in: None Cultural/Ethnic/Sabianism Belief unknown Usual diet at home unknown Skin Integrity/Comment: vinh score 17 Estimated Nutritional Goals BEE in Kcals: Adj wt of IBW Calories/Kcals/Kg 25-30kcals/kg Kcals Calculated 1825-2190kcals/day Protein: Adj wt of IBW Protein g/k-1.2g/kg Protein Calculated 7388g/day Fluid: ml 1825-2190ml/day (1ml/kcal) Nutritional Problem 1. Problem Problem No nutrition diagnosis at this time Intervention/Recommendation Comments Recommend continuing Mechanical soft diet Expected Outcomes/Goals Expected Outcomes/Goals PO intake >75%
--- NOTE | 2017-09-21 13:30 | Discharge Summary ---
DATE OF DISCHARGE: 09/21/2017 IDENTIFYING INFORMATION: The patient is a 67-year-old female. CHIEF COMPLAINT: "I have pain in my knees." HISTORY OF PRESENT ILLNESS: The patient was admitted because of psychosis, aggressive behavior. The patient herself was not a great historian. In the beginning, she reports she has a broken kneecap and has visual problems that is why she was hospitalized. She admits to feeling depressed that she eats well, but she has poor sleep. She felt paranoid. She reported that she lives by herself, which is not to the truth as she needs help with her ADLs. She came from [facility]. She was delusional and believes she owns all these places in [place], [place], and [place] [facility]. 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 She was hospitalized before. She denies prior suicide attempt. Diagnosed with paranoid schizophrenia. She has been on Seroquel, Depakote, I am not sure if she has been taking the Depakote for seizure. She has high cholesterol, hypertension, hypothyroidism, ALLERGIC TO PENICILLIN. She is single, never , no children, 10th grade education. 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 COURSE IN THE HOSPITAL: The patient was started back on her Seroquel and the dose was increased slowly over the course of her stay to 400 mg twice a day. Also, she was on Depakote 1000 mg twice a day. Her Depakote level was checked and it was 94.23. The patient was also continued with Lasix 20 mg twice a day, lactulose at bedtime, levothyroxine 0.112 mg every other day, and multivitamin. The patient progressively got better. She continues to be delusional, paranoid, but that improved. She was not acting anyway dangerous. She was sleeping well, eating well. So as she improved, we felt she could be discharged to a lesser level of care. FINAL DIAGNOSES: AXIS I: Schizoaffective disorder. MEDICAL DIAGNOSES: Gastroesophageal reflux disease, osteoarthritis, hypertension, hyperlipidemia, obesity, peptic ulcer disease. The patient would be going back to [facility], would follow up with her psychiatrist and primary care physician. EXPECTED OUTCOME: Stable if the patient complies with the above. JOB# [id number]
[2017-09-21] MEDS: Lactulose 10 Gm/15 mL 30mL UDC PO SCH (20:28)
[2017-09-22] MEDS: Levothyroxine 0.112 Mg Tab PO SCH (06:45)
[2017-09-22] MEDS: Multivitamin w/ Minerals Tab PO SCH (09:08)
[2017-09-22] MEDS: Atorvastatin Calcium 10 MG TAB PO SCH (09:08)
--- NOTE | 2017-09-22 13:06 | Internal Medicine Prog Note ---
Internal Medicine Subjective - Subjective Patient seen and examined:: with staff, chart reviewed Patient is:: awake, verbal, interactive Patient Complaints of:: cough Per staff patient has:: no adverse event, eating well, noncompliant, tolerating meds Internal Medicine Objective - Results Result Diagrams: 09/19/17 07:30 09/19/17 07:30 Recent Labs: Laboratory Last Values WBC 7.7 Th/cmm (4.8-10.8) 09/19/17 07:30 RBC 3.98 Mil/cmm (3.80-5.20) 09/19/17 07:30 Hgb 12.7 gm/dL (12-16) 09/19/17 07:30 Hct 37.3 % (41.0-60) L D 09/19/17 07:30 MCV 93.9 fl (81-100) 09/19/17 07:30 MCH 32.0 pg (27.0-31.0) H 09/19/17 07:30 MCHC Differential 34.1 pg (28.0-36.0) 09/19/17 07:30 RDW 14.4 % (11.5-20.0) 09/19/17 07:30 Plt Count 186 Th/cmm (150-400) 09/19/17 07:30 MPV 7.7 fl 09/19/17 07:30 Neutrophils % 49.8 % (40.0-80.0) 09/19/17 07:30 Lymphocytes % 40.7 % (20.0-50.0) 09/19/17 07:30 Monocytes % 7.6 % (2.0-10.0) 09/19/17 07:30 Eosinophils % 0.8 % (0.0-5.0) 09/19/17 07:30 Basophils % 1.1 % (0.0-2.0) 09/19/17 07:30 Neutrophils (Manual) 28 % (40-80) L 08/30/17 17:47 Lymphocytes 60 % (20-50) H 08/30/17 17:47 Monocytes 8 % (2-10) 08/30/17 17:47 Eosinophils 2 % (0-5) 08/30/17 17:47 Atypical Lymphocytes 2 % 08/30/17 17:47 Platelet Estimate ADEQUATE (NORMAL) 08/30/17 17:47 Smear Path Review Y 08/30/17 17:47 Sodium 134 mEq/L (136-145) L 09/19/17 07:30 Potassium 4.3 mEq/L (3.5-5.1) 09/19/17 07:30 Chloride 101 mEq/L (98-107) 09/19/17 07:30 Carbon Dioxide 28.1 mEq/L (21.0-31.0) 09/19/17 07:30 Anion Gap 9.2 (7.0-16.0) 09/19/17 07:30 BUN 17 mg/dL (7-25) 09/19/17 07:30 Creatinine 0.7 mg/dL (0.6-1.2) 09/19/17 07:30 Est GFR ( Amer) > 60.0 ml/min (>90) 09/19/17 07:30 Est GFR (Non-Af Amer) > 60.0 ml/min 09/19/17 07:30 BUN/Creatinine Ratio 24.3 09/19/17 07:30 Glucose 87 mg/dL (70-105) 09/19/17 07:30 Hemoglobin A1c % 5.3 % (4.0-6.0) 08/30/17 17:47 Calcium 8.7 mg/dL (8.6-10.3) 09/19/17 07:30 Total Bilirubin 0.3 mg/dL (0.3-1.0) 08/30/17 17:47 AST 15 U/L (13-39) 08/30/17 17:47 ALT 7 U/L (7-52) 08/30/17 17:47 Alkaline Phosphatase 75 U/L (34-104) 08/30/17 17:47 Total Protein 6.7 gm/dL (6.0-8.3) 08/30/17 17:47 Albumin 3.9 gm/dL (3.7-5.3) 08/30/17 17:47 Globulin 2.8 gm/dL 08/30/17 17:47 Albumin/Globulin Ratio 1.4 (1.0-1.8) 08/30/17 17:47 Triglycerides 174 mg/dL (<150) H 08/30/17 17:47 Cholesterol 231 mg/dL (<200) H 12/04/17 17:47 LDL Cholesterol Direct 170 mg/dL (75-193) 08/30/17 17:47 HDL Cholesterol 61 mg/dL (23-92) 08/30/17 17:47 TSH 3.26 uIU/ml (0.34-5.60) 08/30/17 17:47 Salicylates < 25.0 mg/L (30.0-100.0) L 08/30/17 17:47 Acetaminophen < 10.0 ug/mL (10.0-30.0) L 08/30/17 17:47 Valproic Acid 94.3 ug/mL (50.0-100.0) 09/06/17 12:00 Ethyl Alcohol < 10 mg/dL (0-10) 08/30/17 17:47 RPR NONREACTIVE (NONREACTIVE) 08/30/17 17:47 - Physical Exam Vitals and I&O: Vital Signs Temp 98.0 F 09/22/17 06:16 Pulse 67 09/22/17 09:08 Resp 19 09/22/17 06:16 BP 119/87 09/22/17 09:07 Pulse Ox 97 09/22/17 06:16 Intake & Output 09/21/17 09/22/17 09/22/17 18:59 06:59 18:59 Intake Total 800 300 Balance 800 300 Intake: Oral 800 300 Other: # Voids 3 2 # Bowel Movements 1 0 Stool Characteristics Soft Active Medications: Current Medications Acetaminophen (Tylenol) 650 mg PO BID [facility] Stop: 10/30/17 08:59 Last Admin: 09/22/17 09:09 Dose: 650 mg Atorvastatin Calcium (Lipitor) 20 mg PO DAILY [facility] PRN Reason: Protocol Stop: 10/30/17 08:59 Last Admin: 09/22/17 09:08 Dose: 20 mg Bisacodyl (Dulcolax 10 Mg Supp) 10 mg RC Q24H PRN PRN Reason: IF NO BM IN THREE DAYS Stop: 10/29/17 21:21 Docusate Sodium (Colace) 250 mg PO BID [facility] Stop: 10/30/17 08:59 Last Admin: 09/22/17 09:07 Dose: 250 mg Furosemide (Lasix) 20 mg PO BID [facility] Stop: 10/30/17 08:59 Last Admin: 09/22/17 09:07 Dose: 20 mg Lactulose (Cephulac) 30 gm PO HS [facility] Stop: 10/29/17 21:29 Last Admin: 09/21/17 20:28 Dose: 30 gm Levothyroxine Sodium (Synthroid) 0.112 mg PO QDAC [facility] Stop: 10/30/17 07:29 Last Admin: 09/22/17 06:45 Dose: 0.112 mg Lorazepam (Ativan) 0.5 mg PO Q4HR PRN; Protocol PRN Reason: Anxiety Stop: 09/29/17 22:16 Magnesium Hydroxide (Milk Of Magnesia) 30 ml PO Q72H PRN PRN Reason: FOR NO BM IN THREE DAYS Stop: 10/29/17 21:21 Quetiapine Fumarate (Seroquel) 400 mg PO BID [facility] Stop: 11/15/17 12:19 Last Admin: 09/22/17 09:08 Dose: 400 mg Sodium Phosphate (Fleet Enema) 118 ml RC PRN PRN PRN Reason: IF BYSACODYL INEFFECTIVE Stop: 10/29/17 21:21 Valproate Sodium (Depakene) 1,000 mg PO BID [facility] Stop: 10/30/17 08:59 Last Admin: 09/22/17 09:07 Dose: 1,000 mg Zolpidem Tartrate (Ambien) 5 mg PO HS PRN PRN Reason: Insomnia Stop: 10/29/17 22:16 General: alert HEENT: NC/AT, PERRLA Neck: Supple Lungs: CTAB Cardiovascular: RRR, Normal S1, Normal S2, without murmur Abdomen: soft, non-tender, non-distended, positive bowel sound Internal Medicine Assmt/Plan - Assessment Assessment: - Assessment Assessment: htn dyslipidemia pud gerd arthritis schizophrenia bipolar - Plan Plan: monitor bp low fat diet will continue to follow patient continue current plan of care - Plan Plan: meds and orders noted eusebio vallejo Nutritional Asmnt/Malnutr-PDOC - Dietary Evaluation Malnutrition Findings (Please click <Entered> for more info): Nutritional Asmnt/Malnutrition Start: 09/04/17 10: 54 Text: Status: Complete Freq: Document 09/04/17 10:54 KHUSHBU (Rec: 09/04/17 10:59 KHUSHBU POTTS FN) Nutritional Asmnt/Malnutrition Patient General Information Diagnosis Psychosis Pertinent Medical Hx/Surgical Hx HTN, dyslipidemia, PUD, GERD Subjective Information PT asleep at time of visit Current Diet Order/ Nutrition Support low sodium Pertinent Medications lipitor, bisacodyl, colace, lasix, lactulose, synthroid, MOM, megace, fleet enema Pertinent Labs 08/30: Na 128, K 4.3, Cl 93, CO2 26.4, BUN 23, Cr 0.9, Ca 9 .4, glucose 89 Nutritional Hx/Data Height 1.73 m Height (Calculated Centimeters) 172.7 Current Weight (lbs) 102.058 kg Weight (Calculated Kilograms) 102.1 Weight (Calculated Grams) 694732.3 Body Mass Index (BMI) 34.2 Recent Weight Change No Weight Status Obese GI Symptoms GI Symptoms None Last BM 09/02 x 1 Difficult in: None Cultural/Ethnic/Congregation Belief unknown Usual diet at home unknown Skin Integrity/Comment: vinh score 17 Estimated Nutritional Goals BEE in Kcals: Adj wt of IBW Calories/Kcals/Kg 25-30kcals/kg Kcals Calculated 1825-2190kcals/day Protein: Adj wt of IBW Protein g/k-1.2g/kg Protein Calculated 7388g/day Fluid: ml 1825-2190ml/day (1ml/kcal) Nutritional Problem 1. Problem Problem No nutrition diagnosis at this time Intervention/Recommendation Comments Recommend continuing Mechanical soft diet Expected Outcomes/Goals Expected Outcomes/Goals PO intake >75%
== END 2017-09-22 19:25 | DRG 885 ==
LOC: ER 17:18 → GERO 19:30
PROVIDERS: ADMIT Psychiatry & Neurology Psychiatry; ATTEND Psychiatry & Neurology Psychiatry
DX: F25.9 Schizoaffective disorder, unspecified (principal); E03.9 Hypothyroidism, unspecified; E66.9 Obesity, unspecified; E78.5 Hyperlipidemia, unspecified; I10 Essential (primary) hypertension; K27.9 Peptic ulcer, site unspecified, unspecified as acute or chronic, without hemorrhage or perforation; K21.9 Gastro-esophageal reflux disease without esophagitis; M19.90 Unspecified osteoarthritis, unspecified site; Z88.0 Allergy status to penicillin; Z83.3 Family history of diabetes mellitus; Z82.49 Family history of ischemic heart disease and other diseases of the circulatory system; Z68.34 Body mass index [BMI] 34.0-34.9, adult
CPT/HCPCS: 36415-UA; 71010-TC; 80048-TC; 80053-TC; 80061-TC; 80164-TC; 80320-TC; 80329-TC; 83036-90; 84443-TC; 85007-TC; 85025-TC; 85027-TC; 86592-TC; 93005; 97530; G0410; J7030; X3904; Z7610